=== PATIENT | female | born 1985 | race African-American/Black ===

== ENCOUNTER 2018-02-20 12:46 | Emergency (ER) | payer MEDICAID ==
--- NOTE | 2018-02-20 14:05 | ER Document Report ---
ED Medical Screen (RME) - General Chief Complaint: Probable Seizure Stated Complaint: POSSIBLE SEIZURE Time Seen by Provider: 02/20/18 13:54 Mode of Arrival: Ambulatory Information source: Patient Notes: This is a 32-year-old female with a history of seizures (Keppra 1000 mg twice daily), stray of migraines (Fioricet) who presents to the emergency room with a migraine for 3 days. Patient states she gets seizures when her migraines CAT scan. Her doctors are from [place]. She is recently relocated. She has not established yet with a new neurologist. Patient is requesting Dilaudid for her migraine. She states that the migraine headache is typical for her and denies any fever, neck stiffness or photophobia. TRAVEL OUTSIDE OF THE [place] IN LAST 30 DAYS: No - Related Data Allergies/Adverse Reactions: hydrocodone Allergy (Verified 02/20/18 12:50) topiramate [From Topamax] Allergy (Verified 02/20/18 12:50) Physical Exam - Vital signs Vitals: Temp Pulse Resp BP Pulse Ox 99.0 F 95 16 127/78 H 97 02/20/18 12:53 02/20/18 12:53 02/20/18 12:53 02/20/18 12:53 02/20/18 12:53 Course - Vital Signs Vital signs: Temp Pulse Resp BP Pulse Ox 99.0 F 95 16 127/78 H 97 02/20/18 12:53 02/20/18 12:53 02/20/18 12:53 02/20/18 12:53 02/20/18 12:53
[2018-02-20 14:54] LABS: APPEARANCE,URINE CLOUDY; BILIRUBIN,URINE NEGATIVE (NEGATIVE); COLOR,URINE YELLOW; GLUCOSE, URINE NEGATIVE (NEGATIVE); KETONES,URINE NEGATIVE (NEGATIVE); LEUKOCYTE ESTERASE,URINE NEGATIVE (NEGATIVE); NITRITE,URINE NEGATIVE (NEGATIVE); PROTEIN,URINE 30 mg/dL (NEGATIVE)
[2018-02-20 16:14] LABS: ABSOLUTE EOSINOPHILS # (AUTO) 0.1 10^3/uL (0.0-0.6); ABSOLUTE LYMPHOCYTES (AUTO) 2.4 10^3/uL (0.5-4.7); ABSOLUTE MONOCYTES (AUTO) 0.3 10^3/uL (0.1-1.4); ABSOLUTE NEUT (AUTO) 2.1 10^3/uL (1.7-8.2); BASOPHILS % (AUTO) 0.8 % (0-2); EOSINOPHILS % (AUTO) 1.7 % (0-6); HEMATOCRIT 43.6 % (36.0-47.0); LYMPHOCYTES % (AUTO) 48.9 % (13-45); MEAN CORPUSCULAR HEMOGLOBIN 30.3 pg (27.0-33.4); MEAN CORPUSCULAR HGB CONC 34.3 g/dL (32.0-36.0); MEAN CORPUSCULAR VOLUME 88 fl (80-97); PLATELET COUNT 246 10^3/uL (150-450); RED BLOOD COUNT 4.94 10^6/uL (3.72-5.28); RED CELL DISTRIBUTION WIDTH 14.7 % (11.5-14.0); SEGMENTED NEUTROPHILS % (AUTO) 42.6 % (42-78); TOTAL CELLS COUNTED % (AUTO) 100 %; WHITE BLOOD COUNT 4.9 10^3/uL (4.0-10.5)
[2018-02-20 17:09] LABS: ALANINE AMINOTRANSFERASE 24 U/L (9-52); ALBUMIN 4.2 g/dL (3.5-5.0); ALKALINE PHOSPHATASE 83 U/L (38-126); ANION GAP 10 (5-19); ASPARTATE AMINO TRANSFERASE 22 U/L (14-36); BILIRUBIN,DIRECT 0.3 mg/dL (0.0-0.4); BILIRUBIN,TOTAL 0.3 mg/dL (0.2-1.3); BLOOD UREA NITROGEN 10 mg/dL (7-20); CALCIUM 9.4 mg/dL (8.4-10.2); CARBON DIOXIDE 26 mmol/L (22-30); CHLORIDE 104 mmol/L (98-107); GLUCOSE 78 mg/dL (75-110); POTASSIUM 4.4 mmol/L (3.6-5.0); SODIUM 139.5 mmol/L (137-145); TOTAL PROTEIN 7.6 g/dL (6.3-8.2)
[2018-02-20] MEDS ORDERED: HYDROMORPHONE HCL INJ/PF 2 MG/ML AMPULE IM ONE (18:53)
[2018-02-20] MEDS ORDERED: LORAZEPAM INJ 2 MG/1 ML VIAL IV ONE (20:01)
[2018-02-20] MEDS ORDERED: HYDROMORPHONE HCL INJ/PF 2 MG/ML AMPULE IV ONE (20:02)
--- NOTE | 2018-02-20 20:04 | ER Document Report ---
ED General - General Chief Complaint: Probable Seizure Stated Complaint: POSSIBLE SEIZURE Time Seen by Provider: 02/20/18 13:54 Mode of Arrival: Ambulatory Notes: 32-year-old female with known seizure disorder, migraine headaches presents with complaint of headache that started at noon today. Headache is described as throbbing, located behind her eyes and similar to previous headaches. Patient also reports that she had a seizure prior to arrival. She states that she has been compliant with her medication which is Keppra. She recently moved to [facility] and does not currently have a PCP or neurologist. She denies any head injury, recent illnesses, fever, chills, nausea, vomiting. She does admit to some photophobia. Patient is currently staying with friends, she has not found a new home here yet. TRAVEL OUTSIDE OF THE [place] IN LAST 30 DAYS: No - HPI Onset: Just prior to arrival Onset/Duration: Gradual, Constant Quality of pain: Throbbing Severity: Moderate Pain Level: 2 Associated symptoms: Headache. denies: Chest pain, Nonproductive cough, Productive cough, Fever, Nausea, Vomiting, Shortness of breath Exacerbated by: Denies Relieved by: Denies Similar symptoms previously: Yes Recently seen / treated by doctor: No - Related Data Allergies/Adverse Reactions: hydrocodone Allergy (Verified 02/20/18 12:50) topiramate [From Topamax] Allergy (Verified 02/20/18 12:50) Past Medical History - General Information source: Patient - Social History Smoking Status: Current Every Day Smoker Chew tobacco use (# tins/day): No Smoking Education Provided: Yes - Patient counselled regarding cessation for 4 minutes Frequency of alcohol use: Rare Drug Abuse: None Lives with: Friend Family History: Reviewed & Not Pertinent Patient has suicidal ideation: No Patient has homicidal ideation: No Neurological Medical History: Reports: Hx Migraine, Hx Seizures Renal/ Medical History: Denies: Hx Peritoneal Dialysis Past Surgical History: Reports: Hx Hysterectomy, Hx Tonsillectomy Review of Systems - Review of Systems Constitutional: denies: Fever, Weakness EENT: denies: Blurred vision, Nose congestion Cardiovascular: denies: Chest pain, Palpitations Respiratory: denies: Short of breath Gastrointestinal: denies: Abdominal pain, Vomiting Genitourinary: denies: Dysuria, Flank pain, Hematuria Female Genitourinary: No symptoms reported Musculoskeletal: denies: Back pain Skin: No symptoms reported Hematologic/Lymphatic: denies: Easy bleeding, Easy bruising Neurological/Psychological: Seizure, Headaches -: Yes All other systems reviewed and negative Physical Exam - Vital signs Vitals: Temp Pulse Resp BP Pulse Ox 99.0 F 95 16 127/78 H 97 02/20/18 12:53 02/20/18 12:53 02/20/18 12:53 02/20/18 12:53 02/20/18 12:53 - Notes Notes: PHYSICAL EXAMINATION: GENERAL: Well-appearing, well-nourished and in no acute distress. HEAD: Atraumatic, normocephalic. EYES: Pupils equal round and reactive to light, extraocular movements intact, conjunctiva are normal. Normal funduscopic exam ENT: Nares patent, oropharynx clear without exudates. Moist mucous membranes. NECK: Normal range of motion, supple without lymphadenopathy LUNGS: Breath sounds clear to auscultation bilaterally and equal. No wheezes rales or rhonchi. HEART: Regular rate and rhythm without murmurs ABDOMEN: Soft, nontender, nondistended abdomen. No guarding, no rebound. No masses appreciated. Female : deferred Musculoskeletal: Normal range of motion, no pitting or edema. No cyanosis. NEUROLOGICAL: Cranial nerves grossly intact. Normal speech, normal gait. Normal sensory, motor exams. GCS 15 PSYCH: Normal mood, normal affect. SKIN: Warm, Dry, normal turgor, no rashes or lesions noted. Course - Re-evaluation Re-evalutation: Laboratory 02/20/18 02/20/18 02/20/18 14:26 16:05 16:05 WBC 4.9 RBC 4.94 Hgb 15.0 Hct 43.6 MCV 88 MCH 30.3 MCHC 34.3 RDW 14.7 H Plt Count 246 Seg Neutrophils % 42.6 Lymphocytes % 48.9 H Monocytes % 6.0 Eosinophils % 1.7 Basophils % 0.8 Absolute Neutrophils 2.1 Absolute Lymphocytes 2.4 Absolute Monocytes 0.3 Absolute Eosinophils 0.1 Absolute Basophils 0.0 Sodium 139.5 Potassium 4.4 Chloride 104 Carbon Dioxide 26 Anion Gap 10 BUN 10 Creatinine 0.80 Est GFR ( Amer) > 60 Est GFR (Non-Af Amer) > 60 Glucose 78 Calcium 9.4 Total Bilirubin 0.3 Direct Bilirubin 0.3 Neonat Total Bilirubin Not Reportable Neonat Direct Bilirubin Not Reportable Neonat Indirect Bili Not Reportable AST 22 ALT 24 Alkaline Phosphatase 83 Total Protein 7.6 Albumin 4.2 Urine Color YELLOW Urine Appearance CLOUDY Urine pH 5.0 Ur Specific Lucas 1.030 Urine Protein 30 H Urine Glucose (UA) NEGATIVE Urine Ketones NEGATIVE Urine Blood NEGATIVE Urine Nitrite NEGATIVE Urine Bilirubin NEGATIVE Urine Urobilinogen 2.0 H Ur Leukocyte Esterase NEGATIVE Urine WBC (Auto) 5 Urine RBC (Auto) 2 Squamous Epi Cells Auto 13 Urine Mucus (Auto) MANY Urine Ascorbic Acid [address] 02/20/18 20:02 IMPRESSION: No acute intracranial findings. EVIDENCE OF ACUTE STROKE: NO. 32-year-old female with known seizure disorder, migraine headaches presents with complaint of headache that started at noon today. Headache is described as throbbing, located behind her eyes and similar to previous headaches. Patient also reports that she had a seizure prior to arrival. She states that she has been compliant with her medication which is Keppra. Patient was seen by myself upon arrival. Vital signs were reviewed. Patient is afebrile, normotensive and not hypoxic. Patient does not appear toxic or dehydrated. They are in no acute distress. Previous medical records and nursing notes reviewed. Patient has a normal neurologic exam. She did receive IV fluids, Dilaudid, Reglan. After initial medication administration she was reevaluated and reported no relief of pain. CT of the head was then obtained and showed no acute intracranial findings. Patient was premedicated and found resting comfortably. She does report improvement of headache, but is now complaining of nausea. Patient did receive Reglan and Benadryl for this. Patient provided the opportunity to ask questions, and express concerns. Discharge instructions discussed. Patient is agreeable with discharge home. Return indications explained and discussed with the patient who displays understanding. Patient encouraged to return to the emergency department immediately with any concerns. 02/20/18 20:01 On reevaluation patient states her headache is not improved 02/20/18 21:42 Patient reevaluated and she is in comfortably. When awoke she states that her headache is "easing up". 02/20/18 21:45 02/20/18 21:50 02/20/18 21:50 - Vital Signs Vital signs: Temp Pulse Resp BP Pulse Ox 99.0 F 95 18 127/78 H 97 02/20/18 12:53 02/20/18 12:53 02/20/18 13:54 02/20/18 12:53 02/20/18 12:53 - Laboratory Result Diagrams: 02/20/18 16:05 02/20/18 16:05 Laboratory results interpreted by me: 02/20/18 02/20/18 14:26 16:05 RDW 14.7 H Lymphocytes % 48.9 H Urine Protein 30 H Urine Urobilinogen 2.0 H Urine Ascorbic Acid 40 H - Diagnostic Test Radiology reviewed: Image reviewed, Reports reviewed Discharge - Discharge Clinical Impression: Seizure Headache Qualifiers: Headache type: unspecified Headache chronicity pattern: chronic headache Intractability: not intractable Qualified Code(s): R51 - Headache Condition: Good Disposition: HOME, SELF-CARE Instructions: Headache ([facility]), Seizure, Known Epileptic ([facility]) Additional Instructions: Follow up with your physician tomorrow for further care or return to the ED IMMEDIATELY if symptoms worsen or new concerns occur. If you cannot afford to follow up with your primary care physician a list of low cost clinics have been provided at the end of your discharge papers as well.
[2018-02-20] MEDS ORDERED: METOCLOPRAMIDE HCL INJ/PF 10 MG/2 ML SDV IV ONE (21:43)
[2018-02-20] MEDS ORDERED: DIPHENHYDRAMINE HCL 50 MG/ML VIAL IV ONE (21:43)
--- NOTE | 2018-02-20 21:44 | RADIOLOGY REPORT (SQ) ---
EXAM DESCRIPTION: CT HEAD WITHOUT COMPLETED DATE/TIME: 02/20/2018 9:25 pm REASON FOR STUDY: headache COMPARISON: None. TECHNIQUE: Axial images acquired through the brain without intravenous contrast. Images reviewed wi th bone, brain and subdural windows. Images stored on PACS. All CT scanners at this facility use dose modulation, iterative reconstruction, and/or weight based d osing when appropriate to reduce radiation dose to as low as reasonably achievable (ALARA). [facility]: Dose Right [facility]: CareDose [facility]: Dose Right [facility]: Teradose 4D [facility]: Smart SensorTech RADIATION DOSE: CT Rad equipment meets quality standard of care and radiation dose reduction techniq ues were employed. CTDIvol: 53.2 mGy. DLP: 1097 mGy-cm. mGy. LIMITATIONS: None. FINDINGS: VENTRICLES: Normal size and contour. CEREBRUM: No masses. No hemorrhage. No midline shift. No evidence for acute infarction. Normal gra y/white matter differentiation. No areas of low density in the white matter. CEREBELLUM: No masses. No hemorrhage. No alteration of density. No evidence for acute infarction. EXTRAAXIAL SPACES: No fluid collections. No masses. ORBITS AND GLOBE: No intra- or extraconal masses. Normal contour of globe without masses. CALVARIUM: No fracture. PARANASAL SINUSES: No fluid or mucosal thickening. SOFT TISSUES: No mass or hematoma. OTHER: No other significant finding. IMPRESSION: No acute intracranial findings. EVIDENCE OF ACUTE STROKE: NO. COMMENT: Quality ID # [id number]: Final reports with documentation of one or more dose reduction techniques (e.g., Automated exposure control, adjustment of the mA and/or kV according to patient size, use of iterative reconstruction technique) TECHNICAL DOCUMENTATION: JOB ID: [id number] [place]-72 2010 [employer]- All Rights Reserved Reading location - IP/workstation name: [employer]
[2018-02-20 23:31] VITALS: BP 122/94
== END 2018-02-20 23:30 | disposition home or self-care (01) ==
LOC: ER 12:46
DX: G40.909 Epilepsy, unspecified, not intractable, without status epilepticus (principal); R51 Headache; F17.200 Nicotine dependence, unspecified, uncomplicated; Z88.6 Allergy status to analgesic agent; Z90.710 Acquired absence of both cervix and uterus
CPT/HCPCS: 36591; 99406; 99284; 96372; 96374; 96375; 36415; 85025; 80053; 81001; 70450; J1200; J2765; J1170; J2060

== ENCOUNTER 2018-03-21 19:33 | Emergency (ER) | payer MEDICAID ==
[2018-03-21] MEDS ORDERED: BUTALB/ACETAMINOPHEN/CAFFEINE 1 TAB EACH PO ONE (20:00)
--- NOTE | 2018-03-21 20:07 | ER Document Report ---
ED General - General Chief Complaint: Head Injury Stated Complaint: HEAD INJURY Time Seen by Provider: 03/21/18 19:51 Mode of Arrival: Ambulatory Information source: Patient Notes: Patient is a 32-year-old female with a known seizure disorder who presents with complaints of seizure that occurred 30 minutes prior to arrival. Patient was last seen here on February 20 for the same issue. Patient also reports that she is having a migraine headache, she states this is one of her usual migraines and states that she is out of her Fioricet. Patient reports that she was sitting in her kitchen counter when she had a seizure and she states she fell onto the floor onto a carpeted surface. Patient denies any incontinence. Patient denies any nausea or vomiting. Patient reports that she has no primary care provider nor does she have a neurologist. Patient does report that she takes Keppra 500 mg p.o. twice daily and states that she is compliant with her medications. TRAVEL OUTSIDE OF THE [place] IN LAST 30 DAYS: No - Related Data Allergies/Adverse Reactions: hydrocodone Allergy (Verified 03/21/18 19:34) topiramate [From Topamax] Allergy (Verified 03/21/18 19:34) Past Medical History - General Information source: Patient - Social History Smoking Status: Never Smoker Frequency of alcohol use: None Drug Abuse: None Family History: Reviewed & Not Pertinent Neurological Medical History: Reports: Hx Migraine, Hx Seizures Renal/ Medical History: Denies: Hx Peritoneal Dialysis Past Surgical History: Reports: Hx Hysterectomy, Hx Tonsillectomy Review of Systems - Review of Systems Constitutional: No symptoms reported EENT: No symptoms reported Cardiovascular: No symptoms reported Respiratory: No symptoms reported Gastrointestinal: No symptoms reported Genitourinary: No symptoms reported Female Genitourinary: No symptoms reported Musculoskeletal: No symptoms reported Skin: No symptoms reported Hematologic/Lymphatic: No symptoms reported Neurological/Psychological: See HPI Physical Exam - Vital signs Vitals: Temp Pulse Resp BP Pulse Ox 99.0 F 101 H 19 154/108 H 100 03/21/18 19:39 03/21/18 19:39 03/21/18 19:39 03/21/18 19:39 03/21/18 19:39 - Notes Notes: PHYSICAL EXAMINATION: GENERAL: Well-appearing, well-nourished and in no acute distress. HEAD: Atraumatic, normocephalic. EYES: Pupils equal round and reactive to light, extraocular movements intact, conjunctiva are normal. ENT: Nares patent, oropharynx clear without exudates. Moist mucous membranes. NECK: Normal range of motion, supple without lymphadenopathy LUNGS: Breath sounds clear to auscultation bilaterally and equal. No wheezes rales or rhonchi. HEART: Regular rate and rhythm without murmurs ABDOMEN: Soft, nontender, nondistended abdomen. No guarding, no rebound. No masses appreciated. Female : deferred Musculoskeletal: Normal range of motion, no pitting or edema. No cyanosis. NEUROLOGICAL: Cranial nerves grossly intact. Normal speech, normal gait. Normal sensory, motor exams PSYCH: Normal mood, normal affect. SKIN: Warm, Dry, normal turgor, no rashes or lesions noted. Course - Re-evaluation Re-evalutation: 32 year old female patient presents after a seizure, patient is a known epileptic. Patient reports that she has multiple seizures monthly over the last few years despite being complaint with her medications. Patient alert and oriented x4 on my examination. Normal neurological examination. EKG is unchanged from previous, NSR, no ectopy, normal axis, no ischemic changes. CBC and comprehensive metabolic panel are within normal limits, magnesium normal. Patient had a normal head CT at this facility on 02/20/18, I feel there is no need to repeat this today. Patient was monitored for several hours and had no seizure activity. Patient headache resolved with one dose of fioricet. Patient will follow up with neurology. - Vital Signs Vital signs: Temp Pulse Resp BP Pulse Ox 98.1 F 93 16 136/87 H 97 03/21/18 22:36 03/21/18 22:36 03/21/18 22:36 03/21/18 22:36 03/21/18 22:36 - Laboratory Result Diagrams: 03/21/18 21:35 03/21/18 20:32 Laboratory results interpreted by me: 03/21/18 21:35 RDW 14.9 H Discharge - Discharge Clinical Impression: Seizure Condition: Stable Disposition: HOME, SELF-CARE Additional Instructions: Seizure, Known Epileptic You have had a seizure. Seizures may "break through" in an epileptic due to stress of infection or injury, a change in blood chemistry, or drug and alcohol use. Another common cause is failure to take medication as prescribed. Your doctor has evaluated your situation for the likely cause of this seizure. It is important that you follow his advice concerning any medication changes and follow-up care. Further testing of anti-seizure medication levels in your blood may be necessary. If you have a tour driver's license, it's important that you DO NOT DRIVE until given permission by your physician. This seizure must be reported to the tour driver 's license bureau. Call the doctor or return if seizures recur, or if new or unusual symptoms arise -- such as severe headache, confusion, excessive sleepiness, local weakness or numbness, neck stiffness, or fever. Please continue taking her Keppra as prescribed. I am giving you contact info for local primary care providers as well as a local neurologist. Please call them tomorrow to make a follow-up appointment to establish care. Prescriptions: Butalb/Acetaminophen/Caffeine [Fioricet (50-325-40 mg) Tablet] 1 tab PO Q4HP PRN #30 tab PRN Reason: Referrals: [facility] [Provider Group] - Follow up as needed [facility] [Provider Group] - Follow up as needed KRYSTAL MORENO MD [EMERITUS] - Follow up as needed GOLD CROW MD [NO LOCAL MD] - Follow up as needed
[2018-03-21 20:58] LABS: ALANINE AMINOTRANSFERASE 20 U/L (9-52); ALBUMIN 3.7 g/dL (3.5-5.0); ALKALINE PHOSPHATASE 65 U/L (38-126); ANION GAP 11 (5-19); ASPARTATE AMINO TRANSFERASE 14 U/L (14-36); BILIRUBIN,DIRECT 0.3 mg/dL (0.0-0.4); BILIRUBIN,TOTAL 0.3 mg/dL (0.2-1.3); BLOOD UREA NITROGEN 13 mg/dL (7-20); CARBON DIOXIDE 24 mmol/L (22-30); CHLORIDE 107 mmol/L (98-107); GLUCOSE 88 mg/dL (75-110); POTASSIUM 3.8 mmol/L (3.6-5.0); TOTAL PROTEIN 6.8 g/dL (6.3-8.2)
[2018-03-21 21:53] LABS: ABSOLUTE BASOPHILS # (AUTO) 0.1 10^3/uL (0.0-0.2); ABSOLUTE EOSINOPHILS # (AUTO) 0.1 10^3/uL (0.0-0.6); ABSOLUTE LYMPHOCYTES (AUTO) 2.5 10^3/uL (0.5-4.7); ABSOLUTE MONOCYTES (AUTO) 0.6 10^3/uL (0.1-1.4); ABSOLUTE NEUT (AUTO) 3.1 10^3/uL (1.7-8.2); BASOPHILS % (AUTO) 1.3 % (0-2); EOSINOPHILS % (AUTO) 1.8 % (0-6); HEMATOCRIT 37.5 % (36.0-47.0); HEMOGLOBIN 12.9 g/dL (12.0-15.5); LYMPHOCYTES % (AUTO) 39.8 % (13-45); MEAN CORPUSCULAR HGB CONC 34.4 g/dL (32.0-36.0); MEAN CORPUSCULAR VOLUME 87 fl (80-97); MONOCYTES % (AUTO) 8.8 % (3-13); PLATELET COUNT 261 10^3/uL (150-450); RED CELL DISTRIBUTION WIDTH 14.9 % (11.5-14.0); SEGMENTED NEUTROPHILS % (AUTO) 48.3 % (42-78); TOTAL CELLS COUNTED % (AUTO) 100 %; WHITE BLOOD COUNT 6.4 10^3/uL (4.0-10.5)
[2018-03-21 22:40] VITALS: BP 136/87
--- NOTE | 2018-03-22 07:16 | EKG REPORT ---
SEVERITY:- NORMAL ECG - SINUS RHYTHM : Confirmed by: Ras Moser MD 22-Mar-2018 07:16:02
== END 2018-03-21 22:40 | disposition home or self-care (01) ==
LOC: ER 19:33
DX: G40.909 Epilepsy, unspecified, not intractable, without status epilepticus (principal); Z79.899 Other long term (current) drug therapy; W19.XXXA Unspecified fall, initial encounter
CPT/HCPCS: 93005; 99284; 36415; 83735; 85025; 80053; 93010; J3490

== ENCOUNTER 2018-05-28 07:35 | Emergency (ER) | payer MEDICAID ==
[2018-05-28] MEDS ORDERED: DIPHENHYDRAMINE HCL 50 MG/ML VIAL IV ONE (08:01)
[2018-05-28] MEDS ORDERED: KETOROLAC TROMETHAMINE INJ/PF 30 MG/1 ML SDV IV ONE (08:01)
[2018-05-28] MEDS ORDERED: METOCLOPRAMIDE HCL INJ/PF 10 MG/2 ML SDV IV ONE (08:01)
--- NOTE | 2018-05-28 08:02 | ER Document Report ---
ED General - General Chief Complaint: Probable Seizure Stated Complaint: POSSIBLE SEIZURE Time Seen by Provider: 05/28/18 07:51 Notes: This is a 33-year-old female history of migraines. States that she had a high headache earlier this morning. Cannot get comfortable. Having vomiting. Has multiple prior headaches which were very similar to this. Not the worst headache of her life. No fever. No neck stiffness. Not sure whether or not she had a seizure or not. Patient thinks she possibly could have. TRAVEL OUTSIDE OF THE [place] IN LAST 30 DAYS: No - HPI Onset: This morning Onset/Duration: Gradual Quality of pain: No pain Severity: Moderate Pain Level: 4 Associated symptoms: Headache, Nausea, Vomiting - Related Data Allergies/Adverse Reactions: hydrocodone Allergy (Verified 05/28/18 07:42) topiramate [From Topamax] Allergy (Verified 05/28/18 07:42) Past Medical History - General Information source: Patient - Social History Smoking Status: Smoker,Current Status Unk Frequency of alcohol use: None Drug Abuse: None Lives with: Family Family History: Reviewed & Not Pertinent Neurological Medical History: Reports: Hx Migraine, Hx Seizures Renal/ Medical History: Denies: Hx Peritoneal Dialysis Past Surgical History: Reports: Hx Hysterectomy, Hx Tonsillectomy Review of Systems - Review of Systems Notes: Constitutional: denies: Chills, Diaphoresis, Fever, Malaise, Weakness EENT: denies: Eye discharge, Blurred vision, Tearing, Double vision, Nose congestion, Nose discharge, Throat swelling, Mouth pain Cardiovascular: denies: Palpitations, Heart racing, Orthopnea, Dyspnea, Chest pain Respiratory: denies: Cough, Hurts to breathe, Wheezing, Shortness of breath Gastrointestinal: denies: Abdominal pain, Diarrhea,. Does complain of nausea and vomiting Genitourinary: denies: Burning, Dysuria, Discharge, Frequency, Flank pain, Hematuria Musculoskeletal: denies: Joint pain, Joint swelling, Muscle pain, Muscle stiffness, back pain Hematologic/Lymphatic: denies: Anemia, Easy bleeding, Easy bruising, Blood clots Neurological/Psychological: denies: Confusion, Dementia, Depression, Loss of consciousness. Does complain of a headache and possible seizure Skin: No lesions, no masses, no skin breakdown, no abscesses Physical Exam - Vital signs Vitals: Resp 16 05/28/18 08:02 Interpretation: Normal - General General appearance: Appears well, Alert - HEENT Head: Normocephalic, Atraumatic Eyes: Normal Pupils: PERRL - Respiratory Respiratory status: No respiratory distress Chest status: Nontender Breath sounds: Normal Chest palpation: Normal - Cardiovascular Rhythm: Regular Heart sounds: Normal auscultation Murmur: No - Abdominal Inspection: Normal Distension: No distension Bowel sounds: Normal Tenderness: Nontender Organomegaly: No organomegaly - Back Back: Normal, Nontender - Extremities General upper extremity: Normal inspection, Nontender, Normal color, Normal ROM , Normal temperature General lower extremity: Normal inspection, Nontender, Normal color, Normal ROM , Normal temperature, Normal weight bearing. No: Da's sign - Neurological Neuro grossly intact: Yes Cognition: Normal Orientation: AAOx4 [place] Coma Scale Eye Opening: Spontaneous [place] Coma Scale Verbal: Oriented [place] Coma Scale Motor: Obeys Commands Donte Coma Scale Total: 15 Speech: Normal Motor strength normal: LUE, RUE, LLE, RLE Sensory: Normal - Psychological Associated symptoms: Normal affect, Normal mood - Skin Skin Temperature: Warm Skin Moisture: Dry Skin Color: Normal Course - Re-evaluation Re-evalutation: 05/28/18 08:15 Start patient on Reglan, Benadryl, Toradol and reassess. 05/28/18 09:54 Blood pressures come down nicely. Patient resting comfortably. Sleeping at this time. Repeat neurological exam unremarkable. - Vital Signs Vital signs: Temp Pulse Resp BP Pulse Ox 22 H 157/107 H 05/28/18 10:01 05/28/18 10:00 Discharge - Discharge Clinical Impression: Migraine headache Qualifiers: Migraine type: unspecified Status migrainosus presence: without status migrainosus Intractability: not intractable Qualified Code(s): G43.909 - Migraine, unspecified, not intractable, without status migrainosus Condition: Good Disposition: HOME, SELF-CARE Instructions: Migraine Headache ([facility]) Prescriptions: Ondansetron [Zofran Odt 4 mg Tablet] 1 - 2 tab PO Q4H PRN #15 tab.rapdis PRN Reason: For Nausea/Vomiting Forms: Return to Work
[2018-05-28] MEDS ORDERED: ONDANSETRON HCL INJ/PF 4 MG/2 ML SDV IV ONE (10:02)
[2018-05-28 10:16] VITALS: BP 157/107
== END 2018-05-28 10:28 | disposition home or self-care (01) ==
LOC: ER 07:35
DX: G43.909 Migraine, unspecified, not intractable, without status migrainosus (principal); R11.2 Nausea with vomiting, unspecified; Z88.5 Allergy status to narcotic agent; Z88.6 Allergy status to analgesic agent
CPT/HCPCS: 99283; 96374; 96375; J1200; J1885; J2765; J2405

== ENCOUNTER 2018-09-10 00:05 | Emergency (ER) | payer MEDICAID ==
[2018-09-10 00:11] VITALS: BP 152/99
[2018-09-10] MEDS ORDERED: CYCLOBENZAPRINE HCL 10 MG TABLET PO ONE (00:58)
[2018-09-10] MEDS ORDERED: BUTALB/ACETAMINOPHEN/CAFFEINE 1 TAB EACH PO ONE (00:58)
--- NOTE | 2018-09-10 00:59 | ER Document Report ---
ED General - General Chief Complaint: Pain All Over Stated Complaint: BODYACHE Time Seen by Provider: 09/10/18 00:49 Notes: Patient is a 33-year-old female with history of migraines that presents to the emergency department for chief complaint of migraine headache. Patient states she is been having this migraine for about 1 week, has been off and on in intensity, but today it seemed to be more intense so she decided come to the emergency department. Is not the worst headache of her life, similar to her previous migraines, which she is having associated body aches, nausea but without vomiting. She usually takes B alditol for her medications, but she has been out of this medication she recently moved and did not have it refilled since moving. She describes her headache is holocephalic, with mild photophobia, without aura, describes it and rates it as a 7 out of 10 at this time, as an aching type headache. Denies any numbness, tingling or weakness in the extremities. She also denies any recent fevers, chills, night sweats, co ugh, chest pain, shortness of breath or difficulty breathing. Past Medical History: Epilepsy, migraine headaches Past Surgical History: Hysterectomy, tubal ligation, tonsillectomy Social History: Admits to smoking cigarettes daily, denies alcohol or drug use. Family History: Reviewed and noncontributory for presenting illness Allergies: Reviewed, see documented allergy list. REVIEW OF SYSTEMS: Other than noted above, the 12 point review of systems was reviewed with the patient and were negative, all pertinent findings are included in the HPI. PHYSICAL EXAMINATION: Vital signs reviewed, nursing noted reviewed. GENERAL: Well-appearing, well-nourished and in no acute distress. HEAD: Atraumatic, normocephalic. EYES: Eyes appear normal, extraocular movements intact, sclera anicteric, c onjunctiva are normal. ENT: nares patent, oropharynx clear without exudates. Moist mucous membranes. NECK: Normal range of motion, supple without lymphadenopathy LUNGS: Breath sounds clear to auscultation bilaterally and equal. No wheezes rales or rhonchi. HEART: Regular rate and rhythm without murmurs ABDOMEN: Soft, nontender, normoactive bowel sounds. No rebound, guarding, or rigidity. No masses appreciated. EXTREMITIES: Nontender, good range of motion, no pitting or edema. NEUROLOGICAL: No focal neurological deficits. Moves all extremities spontaneously Motor and sensory grossly intact on exam. PSYCH: Normal mood, normal affect. SKIN: Warm, Dry, normal turgor, no rashes or lesions noted on exposed skin TRAVEL OUTSIDE OF THE [place] IN LAST 30 DAYS: No - Related Data Allergies/Adverse Reactions: hydrocodone Allergy (Verified 05/28/18 07:42) topiramate [From Topamax] Allergy (Verified 05/28/18 07:42) Past Medical History - Social History Smoking Status: Current Every Day Smoker Family History: Reviewed & Not Pertinent Neurological Medical History: Reports: Hx Migraine, Hx Seizures Renal/ Medical History: Denies: Hx Peritoneal Dialysis Past Surgical History: Reports: Hx Hysterectomy, Hx Tonsillectomy Physical Exam - Vital signs Vitals: Temp Pulse Resp BP Pulse Ox 97.8 F 87 18 152/99 H 98 09/10/18 00:09 09/10/18 00:09 09/10/18 00:09 09/10/18 00:09 09/10/18 00:09 Course - Re-evaluation Re-evalutation: Patient seen and examined vital signs reviewed. Patient was treated with Fioricet, 2 tablets, and Flexeril, as the patient states that that typically helps her migraines The patient was re-evaluated and was still complaining of headache, at this point decided to access her Port-A-Cath, and give her IV fluids, Toradol, and Reglan, and reevaluate her afterwards, as she stated in the past she usually needs IV medications, to help her headaches, when they have been lasting this long. Patient was reevaluated, she appeared much improved, she stated her headache was completely resolved, and felt comfortable with being discharged home, discussed with her return precautions. Evaluation was most consistent with headache Results were discussed with the patient at this point, after careful consideration I feel that that patient can be discharged from the emergency department, the patient was educated treatments and reasons to return to the emergency department based on their presumed diagnosis as noted above, they were advised to followup with a primary care physician in 2-3 days. Patient was agreeable to plan of care. *Note is created using voice recognition software and may contain spelling, syntax or grammatical errors. - Vital Signs Vital signs: Temp Pulse Resp BP Pulse Ox 97.8 F 87 18 152/99 H 98 09/10/18 00:09 09/10/18 00:09 09/10/18 00:09 09/10/18 00:09 09/10/18 00:09 Discharge - Discharge Clinical Impression: Headache Qualifiers: Headache type: unspecified Headache chronicity pattern: acute headache Intractability: not intractable Qualified Code(s): R51 - Headache Condition: Stable Disposition: HOME, SELF-CARE Instructions: Headache ([facility]) Referrals: VITALIY CHANCE MD [ACTIVE STAFF] - Follow up in 3-5 days (or your primary care. )
[2018-09-10] MEDS ORDERED: KETOROLAC TROMETHAMINE INJ/PF 30 MG/1 ML SDV IV ONE (01:29)
[2018-09-10] MEDS ORDERED: NORMAL SALINE 1000 ML 1,000 ML IV ONE (01:29)
[2018-09-10] MEDS ORDERED: METOCLOPRAMIDE HCL INJ/PF 10 MG/2 ML SDV IV ONE (01:30)
== END 2018-09-10 03:07 | disposition home or self-care (01) ==
LOC: ER 00:05
DX: R51 Headache (principal); M79.10 Myalgia, unspecified site; R11.0 Nausea; Z79.899 Other long term (current) drug therapy; F17.210 Nicotine dependence, cigarettes, uncomplicated
CPT/HCPCS: 36591; 99283; 96361; 96374; 96375; J3490 ×2; J1885; J2765; J7030

== ENCOUNTER 2018-09-12 03:44 | Emergency (ER) | payer MEDICAID ==
[2018-09-12] MEDS ORDERED: PROMETHAZINE HCL 25 MG TABLET PO ONE (04:02)
[2018-09-12] MEDS ORDERED: OXYCODONE-ACETAMINOPHEN 5-325 MG TABLET PO ONE (04:02)
--- NOTE | 2018-09-12 04:04 | ER Document Report ---
ED GI/ - General Chief Complaint: Abdominal Pain Stated Complaint: ABDOMINAL PAIN Time Seen by Provider: 09/12/18 03:54 Notes: Patient is a 33-year-old female that comes to the emergency department for chief complaint of 1 week of right upper quadrant abdominal pain. She states pain is much worse after eating and she is eating less as a result. She denies vomiting, fever, she reports normal bowel movements, she denies flank pain, dysuria, vaginal discharge or bleeding. Past medical history of hysterectomy, epilepsy, migraines, tobacco abuse. She denies alcohol or recreational drugs. TRAVEL OUTSIDE OF THE [place] IN LAST 30 DAYS: No - Related Data Allergies/Adverse Reactions: hydrocodone Allergy (Verified 09/12/18 03:46) topiramate [From Topamax] Allergy (Verified 09/12/18 03:46) Past Medical History - General Information source: Patient - Social History Smoking Status: Never Smoker Lives with: Family Family History: Reviewed & Not Pertinent Neurological Medical History: Reports: Hx Migraine, Hx Seizures Renal/ Medical History: Denies: Hx Peritoneal Dialysis Past Surgical History: Reports: Hx Hysterectomy, Hx Tonsillectomy - Immunizations Immunizations up to date: Yes Hx Diphtheria, Pertussis, Tetanus Vaccination: Yes Review of Systems - Review of Systems Constitutional: No symptoms reported EENT: No symptoms reported Cardiovascular: No symptoms reported Respiratory: No symptoms reported Gastrointestinal: See HPI Genitourinary: No symptoms reported Female Genitourinary: No symptoms reported Musculoskeletal: No symptoms reported Skin: No symptoms reported Hematologic/Lymphatic: No symptoms reported Neurological/Psychological: No symptoms reported Physical Exam - Vital signs Vitals: Temp Pulse Resp BP Pulse Ox 97.9 F 89 18 141/90 H 99 09/12/18 03:47 09/12/18 03:47 09/12/18 03:47 09/12/18 03:47 09/12/18 03:47 - Notes Notes: GENERAL: Alert, interacts well. No acute distress. HEAD: Normocephalic, atraumatic. EYES: Pupils equal, round, and reactive to light. Extraocular movements intact. ENT: Oral mucosa moist, tongue midline. Oropharynx unremarkable. Airway patent. Nares patent, no nasal septal hematoma, TM's intact. NECK: Full range of motion. Supple. Trachea midline. LUNGS: Clear to auscultation bilaterally, no wheezes, rales, or rhonchi. No respiratory distress. HEART: Regular rate and rhythm. No murmur ABDOMEN: There is some tenderness in the right upper quadrant, remaining abdomen is completely benign.. Non-distended. Bowel sounds present in all 4 quadrants. GENITOURINARY: Deferred EXTREMITIES: Moves all 4 extremities spontaneously. No edema, normal radial and dorsalis pedis pulses bilaterally. No cyanosis. BACK: no cervical, thoracic, lumbar midline tenderness. No saddle anesthesia, normal distal neurovascular exam. NEUROLOGICAL: Alert and oriented x3. Normal speech. [cranial nerves II through XII grossly intact]. PSYCH: Normal affect, normal mood. SKIN: Warm, dry, normal turgor. No rashes or lesions noted. Course - Re-evaluation Re-evalutation: CBC unremarkable, chemistry unremarkable, urinalysis unremarkable. Lipase is normal. Patient is extremely well-appearing, talkative, laughing, playing on her phone, hard to distract from her phone. She does have mild right upper quadrant tenderness, the remaining abdomen is benign. Exam performed, shows cholelithiasis without cholecystitis or obstruction. No other concerning findings. Patient tolerated p.o. without any difficulty. I discussed the results of her workup in detail, discussed surgical follow-up, medications, and return precautions in detail. Patient requests in addition to this that she be given Flexeril which she takes frequently for tension headaches to prevent migraines. She was provided with this. Patient states understanding and agreement with plan. - Vital Signs Vital signs: Temp Pulse Resp BP Pulse Ox 98.3 F 86 16 147/95 H 100 09/12/18 05:47 09/12/18 05:47 09/12/18 05:47 09/12/18 05:47 09/12/18 05:47 - Laboratory Result Diagrams: 09/12/18 04:05 09/12/18 04:05 Laboratory results interpreted by me: 09/12/18 09/12/18 04:05 04:05 RDW 14.3 H Chloride 108 H Discharge - Discharge Clinical Impression: Right upper quadrant pain Headache Qualifiers: Headache type: unspecified Headache chronicity pattern: episodic headache Intractability: not intractable Qualified Code(s): R51 - Headache Cholelithiasis Qualifiers: Cholelithiasis location: gallbladder Cholecystitis presence: without cholecystitis Biliary obstruction: without biliary obstruction Qualified Code(s): K80.20 - Calculus of gallbladder without cholecystitis without obstr uction Condition: Stable Disposition: HOME, SELF-CARE Additional Instructions: Your workup shows that you have gallstones. This is most likely the cause of your symptoms. I recommend the Toradol for symptoms of gallbladder spasm/pain, avoid fatty foods, and follow-up closely with the surgical referral listed. You can take the cyclobenzaprine as prescribed for muscle relaxer/headaches. Return to the emergency department for any concerning or worsening symptoms including severe pain, fever, vomiting, or any other concerning or worsening symptoms. Prescriptions: Ketorolac Tromethamine [Toradol 10 mg Tablet] 10 mg PO Q8HP PRN #24 tablet PRN Reason: Cyclobenzaprine HCl [Flexeril 5 mg Tablet] 1 - 2 tab PO TID PRN #15 tablet PRN Reason: Forms: Return to Work Referrals: [facility] [Provider Group] - Follow up as needed
[2018-09-12 04:24] LABS: ABSOLUTE BASOPHILS # (AUTO) 0.1 10^3/uL (0.0-0.2); ABSOLUTE EOSINOPHILS # (AUTO) 0.3 10^3/uL (0.0-0.6); ABSOLUTE LYMPHOCYTES (AUTO) 1.9 10^3/uL (0.5-4.7); ABSOLUTE MONOCYTES (AUTO) 0.5 10^3/uL (0.1-1.4); EOSINOPHILS % (AUTO) 5.9 % (0-6); HEMOGLOBIN 13.7 g/dL (12.0-15.5); LYMPHOCYTES % (AUTO) 32.4 % (13-45); MEAN CORPUSCULAR HEMOGLOBIN 30.7 pg (27.0-33.4); MEAN CORPUSCULAR HGB CONC 34.3 g/dL (32.0-36.0); MEAN CORPUSCULAR VOLUME 90 fl (80-97); MONOCYTES % (AUTO) 8.6 % (3-13); PLATELET COUNT 248 10^3/uL (150-450); RED BLOOD COUNT 4.46 10^6/uL (3.72-5.28); RED CELL DISTRIBUTION WIDTH 14.3 % (11.5-14.0); SEGMENTED NEUTROPHILS % (AUTO) 51.1 % (42-78); TOTAL CELLS COUNTED % (AUTO) 100 %; WHITE BLOOD COUNT 5.8 10^3/uL (4.0-10.5)
[2018-09-12 04:34] LABS: APPEARANCE,URINE SLIGHTLY-CLOUDY; BILIRUBIN,URINE NEGATIVE (NEGATIVE); COLOR,URINE YELLOW; GLUCOSE, URINE NEGATIVE (NEGATIVE); KETONES,URINE NEGATIVE (NEGATIVE); LEUKOCYTE ESTERASE,URINE NEGATIVE (NEGATIVE); NITRITE,URINE NEGATIVE (NEGATIVE); PROTEIN,URINE NEGATIVE (NEGATIVE); URINE SPECIFIC GRAVITY 1.025; UROBILINOGEN,URINE NEGATIVE mg/dL (<2.0)
[2018-09-12 04:38] LABS: ALANINE AMINOTRANSFERASE 15 U/L (9-52); ALBUMIN 3.9 g/dL (3.5-5.0); ALKALINE PHOSPHATASE 64 U/L (38-126); ANION GAP 6 (5-19); ASPARTATE AMINO TRANSFERASE 16 U/L (14-36); BILIRUBIN,DIRECT 0.2 mg/dL (0.0-0.4); BILIRUBIN,TOTAL 0.4 mg/dL (0.2-1.3); BLOOD UREA NITROGEN 11 mg/dL (7-20); CARBON DIOXIDE 26 mmol/L (22-30); CHLORIDE 108 mmol/L (98-107); GLUCOSE 92 mg/dL (75-110); LIPASE 138.1 U/L (23-300); POTASSIUM 4.1 mmol/L (3.6-5.0); SODIUM 140.1 mmol/L (137-145)
--- NOTE | 2018-09-12 05:04 | RADIOLOGY REPORT (SQ) ---
EXAM DESCRIPTION: US ABDOMEN LIMITED COMPLETED DATE/TME: 09/12/2018 04:03 CLINICAL HISTORY: 33 years, Female, RUQ pain COMPARISON: None. TECHNIQUE: Transverse longitudinal sonographic images of the right upper quadrant LIMITATIONS: None. FINDINGS: The liver is homogenous in echotexture without focal lesion. Mobile, shadowing stones throughout the gallbladder lumen. No gallbladder wall thickening. Negative sonographic Glover's sign. No pericholecystic fluid. The CBD measures 2.7 mm. No ascites. The visualized pancreas, abdominal aorta, inferior vena cava, right kidney are unremarkable. IMPRESSION: Cholelithiasis. No sonographic evidence for cholecystitis copyright 2010 [employer]- All Rights Reserved
[2018-09-12] MEDS ORDERED: KETOROLAC TROMETHAMINE 60 MG/2 ML SDV IM ONE (05:37)
[2018-09-12] MEDS ORDERED: CYCLOBENZAPRINE HCL 10 MG TABLET PO ONE (05:38)
[2018-09-12 05:54] VITALS: BP 147/95
== END 2018-09-12 06:04 | disposition home or self-care (01) ==
LOC: ER 03:44
DX: K80.20 Calculus of gallbladder without cholecystitis without obstruction (principal); R10.11 Right upper quadrant pain; R51 Headache; Z90.710 Acquired absence of both cervix and uterus; Z88.5 Allergy status to narcotic agent; Z88.6 Allergy status to analgesic agent
CPT/HCPCS: 99284; 96372; 36415; 83690; 85025; 81025; 80053; 81001; 76705; J3490 ×2; J1885

== ENCOUNTER 2018-10-03 11:56 | Emergency (ER) | payer MEDICAID ==
[2018-10-03] MEDS ORDERED: RINGERS SOLUTION,LACTATED 1,000 ML IV ONE (13:09)
[2018-10-03] MEDS ORDERED: ONDANSETRON HCL INJ/PF 4 MG/2 ML SDV IV ONE (13:09)
--- NOTE | 2018-10-03 13:09 | ER Document Report ---
ED Medical Screen (RME) - General Chief Complaint: Abdominal Pain Stated Complaint: STOMACH PAIN Time Seen by Provider: 10/03/18 12:56 Mode of Arrival: Ambulatory Information source: Patient Notes: This is a 33-year-old female with a history of cholelithiasis, migraines, epilepsy (noncompliant with antiepileptics) who presents to the emergency room with decreased p.o. intake, upper abdominal discomfort. Patient was recently evaluated in the ER found to have gallstones on ultrasound. She was referred to the surgical clinic and was initially given a date for cholecystectomy. Anesthesia refused the surgery given the patient's history of seizures with anesthesia. Patient presents with continued symptoms. She notes decreased p.o. intake. TRAVEL OUTSIDE OF THE [place] IN LAST 30 DAYS: No - Related Data Allergies/Adverse Reactions: hydrocodone Allergy (Verified 10/03/18 12:02) latex Allergy (Verified 10/03/18 12:02) topiramate [From Topamax] Allergy (Verified 10/03/18 12:02) Past Medical History - Social History Frequency of alcohol use: None Drug Abuse: None - Past Medical History Cardiac Medical History: Denies: Hx Coronary Artery Disease, Hx Heart Attack, Hx Hypertension Pulmonary Medical History: Denies: Hx Asthma, Hx Bronchitis, Hx COPD, Hx Pneumonia Neurological Medical History: Reports: Hx Migraine, Hx Seizures - EPILEPSY, LAST ONE 3MONTHS AGO, seizures in sleep. Denies: Hx Cerebrovascular Accident Renal/ Medical History: Denies: Hx Peritoneal Dialysis Musculoskeltal Medical History: Denies Hx Arthritis Past Surgical History: Reports: Hx Hysterectomy, Hx Tonsillectomy, Hx Tubal Ligation - Immunizations Immunizations up to date: Yes Hx Diphtheria, Pertussis, Tetanus Vaccination: Yes History of Influenza Vaccine for 06/2017 - 11/2017 Season: No Physical Exam - Vital signs Vitals: Temp Pulse Resp BP Pulse Ox 98.6 F 80 18 137/97 H 100 10/03/18 12:20 10/03/18 12:20 10/03/18 12:20 10/03/18 12:20 10/03/18 12:20 Course - Vital Signs Vital signs: Temp Pulse Resp BP Pulse Ox 98.6 F 80 18 137/97 H 100 10/03/18 12:20 10/03/18 12:20 10/03/18 12:20 10/03/18 12:20 10/03/18 12:20
[2018-10-03 14:06] LABS: APPEARANCE,URINE SLIGHTLY-CLOUDY; BILIRUBIN,URINE NEGATIVE (NEGATIVE); COLOR,URINE YELLOW; GLUCOSE, URINE NEGATIVE (NEGATIVE); KETONES,URINE NEGATIVE (NEGATIVE); LEUKOCYTE ESTERASE,URINE NEGATIVE (NEGATIVE); NITRITE,URINE NEGATIVE (NEGATIVE); PROTEIN,URINE NEGATIVE (NEGATIVE); URINE SPECIFIC GRAVITY 1.015; UROBILINOGEN,URINE NEGATIVE mg/dL (<2.0)
[2018-10-03 14:34] LABS: ABSOLUTE EOSINOPHILS # (AUTO) 0.1 10^3/uL (0.0-0.6); ABSOLUTE LYMPHOCYTES (AUTO) 2.2 10^3/uL (0.5-4.7); ABSOLUTE MONOCYTES (AUTO) 0.3 10^3/uL (0.1-1.4); ABSOLUTE NEUT (AUTO) 2.1 10^3/uL (1.7-8.2); HEMATOCRIT 43.6 % (36.0-47.0); HEMOGLOBIN 15.1 g/dL (12.0-15.5); LYMPHOCYTES % (AUTO) 46.1 % (13-45); MEAN CORPUSCULAR HEMOGLOBIN 30.9 pg (27.0-33.4); MEAN CORPUSCULAR HGB CONC 34.7 g/dL (32.0-36.0); MEAN CORPUSCULAR VOLUME 89 fl (80-97); MONOCYTES % (AUTO) 6.7 % (3-13); PLATELET COUNT 233 10^3/uL (150-450); RED BLOOD COUNT 4.89 10^6/uL (3.72-5.28); RED CELL DISTRIBUTION WIDTH 13.7 % (11.5-14.0); SEGMENTED NEUTROPHILS % (AUTO) 44.2 % (42-78); TOTAL CELLS COUNTED % (AUTO) 100 %; WHITE BLOOD COUNT 4.8 10^3/uL (4.0-10.5)
[2018-10-03 14:44] LABS: BLOOD UREA NITROGEN 9 mg/dL (7-20); CALCIUM 9.5 mg/dL (8.4-10.2); CHLORIDE 106 mmol/L (98-107); GLUCOSE 95 mg/dL (75-110); POTASSIUM 4.5 mmol/L (3.6-5.0)
[2018-10-03 14:45] LABS: ALANINE AMINOTRANSFERASE 22 U/L (9-52); ALBUMIN 4.8 g/dL (3.5-5.0); ALKALINE PHOSPHATASE 68 U/L (38-126); ANION GAP 10 (5-19); ASPARTATE AMINO TRANSFERASE 20 U/L (14-36); BILIRUBIN,DIRECT 0.2 mg/dL (0.0-0.4); BILIRUBIN,TOTAL 0.6 mg/dL (0.2-1.3); CARBON DIOXIDE 22 mmol/L (22-30)
[2018-10-03] MEDS ORDERED: OXYCODONE-ACETAMINOPHEN 5-325 MG TABLET PO ONE (15:07)
--- NOTE | 2018-10-03 15:16 | ER Document Report ---
ED General - General Chief Complaint: Abdominal Pain Stated Complaint: STOMACH PAIN Time Seen by Provider: 10/03/18 12:56 Mode of Arrival: Ambulatory TRAVEL OUTSIDE OF THE [place] IN LAST 30 DAYS: No - HPI Notes: Patient is a 33-year-old female that presents to the emergency department for chief complaint of right upper quadrant abdominal pain. Patient reports pain in her right upper quadrant for the last month. Her pain is sharp and nonradiating. Her pain is worse after eating. She denies relieving factors. She has not taken any [id number] pain medication. She states of the last 3 days it has been a little bit more severe. She did have an appointment with surgery after being told she had gallstones. Patient states the anesthesiologist did not feel comfortable with her getting anesthesia because of her surgery history and noncompliance with antiepileptic medications. Patient states that her antiepileptic medicines make her worse. She states she had an appointment on September 18 with neurology which she missed. Patient has an appointment tomorrow with general surgery again. She reports nausea but denies any vomiting. She denies any fevers or diarrhea. She denies new symptoms today. Past Medical History: Seizures, migraines Past Surgical History: Partial hysterectomy, tubal ligation, tonsillectomy Social History: Daily tobacco. Denies drugs and alcohol Family History: Reviewed and noncontributory for presenting illness Allergies: Reviewed, see documented allergy list. REVIEW OF SYSTEMS: CONSTITUTIONAL : No fever No chills No diaphoresis No recent illness EENT: No vision changes No congestion No sore throat CARDIOVASCULAR: No chest pain No palpitations RESPIRATORY: No shortness of breath No cough No difficulty breathing GASTROINTESTINAL: abdominal pain nausea No vomiting No diarrhea GENITOURINARY: No dysuria No hematuria No difficulty urinating MUSCULOSKELETAL: No back pain No leg pain No arm pain SKIN: No rashes No lesions LYMPHATIC: No swollen, enlarged glands. NEUROLOGICAL: No lightheadedness No headache No weakness No paresthesias PSYCHIATRIC: No anxiety No depression PHYSICAL EXAMINATION: Vital signs reviewed, nursing noted reviewed. GENERAL: Well-appearing, well-nourished and in no acute distress. HEAD: Atraumatic, normocephalic. EYES: Eyes appear normal, extraocular movements intact, sclera anicteric, conjunctiva are normal. ENT: nares patent, oropharynx clear without exudates. Moist mucous membranes. NECK: Normal range of motion, supple without lymphadenopathy LUNGS: Breath sounds clear to auscultation bilaterally and equal. No wheezes rales or rhonchi. HEART: Regular rate and rhythm without murmurs ABDOMEN: Soft, right upper quadrant tenderness, normoactive bowel sounds. No rebound, guarding, or rigidity. No masses appreciated. EXTREMITIES: Nontender, good range of motion, no pitting or edema. NEUROLOGICAL: No focal neurological deficits. Moves all extremities spontaneously Motor and sensory grossly intact on exam. PSYCH: Normal mood, normal affect. SKIN: Warm, Dry, normal turgor, no rashes or lesions noted on exposed skin - Related Data Allergies/Adverse Reactions: hydrocodone Allergy (Verified 10/03/18 12:02) latex Allergy (Verified 10/03/18 12:02) topiramate [From Topamax] Allergy (Verified 10/03/18 12:02) Past Medical History - General Information source: Patient - Social History Smoking Status: Current Every Day Smoker Frequency of alcohol use: None Drug Abuse: None Family History: Reviewed & Not Pertinent Patient has suicidal ideation: No Patient has homicidal ideation: No - Past Medical History Cardiac Medical History: Denies: Hx Coronary Artery Disease, Hx Heart Attack, Hx Hypertension Pulmonary Medical History: Denies: Hx Asthma, Hx Bronchitis, Hx COPD, Hx Pneumonia Neurological Medical History: Reports: Hx Migraine, Hx Seizures - EPILEPSY, LAST ONE 3MONTHS AGO, seizures in sleep. Denies: Hx Cerebrovascular Accident Renal/ Medical History: Denies: Hx Peritoneal Dialysis Musculoskeletal Medical History: Denies Hx Arthritis Past Surgical History: Reports: Hx Hysterectomy, Hx Tonsillectomy, Hx Tubal Ligation - Immunizations Immunizations up to date: Yes Hx Diphtheria, Pertussis, Tetanus Vaccination: Yes Physical Exam - Vital signs Vitals: Temp Pulse Resp BP Pulse Ox 98.6 F 80 18 137/97 H 100 10/03/18 12:20 10/03/18 12:20 10/03/18 12:20 10/03/18 12:20 10/03/18 12:20 Course - Re-evaluation Re-evalutation: 10/03/18 15:18 Vitals reviewed. Nursing notes reviewed. I reviewed her ultrasound from August which showed cholelithiasis. Patient does have some tenderness in her right upper quadrant with no peritoneal signs. The remainder of abdominal exam is benign. She is tolerating oral intake in the room and is nontoxic-appearing. Patient will be given Zofran and Percocet for symptomatic management. Her lab work today shows no elevated alk phos, total bili or LFTs. Patient does not have acute cholecystitis. She has an appointment tomorrow morning with Dr. Gutierrez. I encouraged her to keep this appointment to discuss options for surgery. Patient symptoms likely related to her gallstones. She is otherwise stable for outpatient management. He is in agreement with this plan. She will return for new or worsening symptoms. Laboratory 10/03/18 10/03/18 10/03/18 13:43 13:43 14:23 WBC 4.8 RBC 4.89 Hgb 15.1 Hct 43.6 MCV 89 MCH 30.9 MCHC 34.7 RDW 13.7 Plt Count 233 Seg Neutrophils % 44.2 Lymphocytes % 46.1 H Monocytes % 6.7 Eosinophils % 2.0 Basophils % 1.0 Absolute Neutrophils 2.1 Absolute Lymphocytes 2.2 Absolute Monocytes 0.3 Absolute Eosinophils 0.1 Absolute Basophils 0.0 Sodium Cancelled Potassium Cancelled Chloride Cancelled Carbon Dioxide Cancelled Anion Gap Cancelled BUN Cancelled Creatinine Cancelled Est GFR ( Amer) Cancelled Est GFR (Non-Af Amer) Cancelled Glucose Cancelled Calcium Cancelled Total Bilirubin Cancelled Direct Bilirubin Cancelled Neonat Total Bilirubin Cancelled Neonat Direct Bilirubin Cancelled Neonat Indirect Bili Cancelled AST Cancelled ALT Cancelled Alkaline Phosphatase Cancelled Total Protein Cancelled Albumin Cancelled Urine Color YELLOW Urine Appearance SLIGHTLY-CLOUDY Urine pH 5.0 Ur Specific [place] 1.015 Urine Protein NEGATIVE Urine Glucose (UA) NEGATIVE Urine Ketones NEGATIVE Urine Blood NEGATIVE Urine Nitrite NEGATIVE Urine Bilirubin NEGATIVE Urine Urobilinogen NEGATIVE Ur Leukocyte Esterase NEGATIVE Urine WBC (Auto) 3 Urine RBC (Auto) 1 Squamous Epi Cells Auto 8 Urine Mucus (Auto) OCC Urine Ascorbic Acid NEGATIVE 10/03/18 14:23 WBC RBC Hgb Hct MCV MCH MCHC RDW Plt Count Seg Neutrophils % Lymphocytes % Monocytes % Eosinophils % Basophils % Absolute Neutrophils Absolute Lymphocytes Absolute Monocytes Absolute Eosinophils Absolute Basophils Sodium 138.0 Potassium 4.5 Chloride 106 Carbon Dioxide 22 Anion Gap 10 BUN 9 Creatinine 0.78 Est GFR ( Amer) > 60 Est GFR (Non-Af Amer) > 60 Glucose 95 Calcium 9.5 Total Bilirubin 0.6 Direct Bilirubin 0.2 Neonat Total Bilirubin Not Reportable Neonat Direct Bilirubin Not Reportable Neonat Indirect Bili Not Reportable AST 20 ALT 22 Alkaline Phosphatase 68 Total Protein 8.0 Albumin 4.8 Urine Color Urine Appearance Urine pH Ur Specific [place] Urine Protein Urine Glucose (UA) Urine Ketones Urine Blood Urine Nitrite Urine Bilirubin Urine Urobilinogen Ur Leukocyte Esterase Urine WBC (Auto) Urine RBC (Auto) Squamous Epi Cells Auto Urine Mucus (Auto) Urine Ascorbic Acid - Vital Signs Vital signs: Temp Pulse Resp BP Pulse Ox 98.6 F 80 18 137/97 H 100 10/03/18 12:20 10/03/18 12:20 10/03/18 12:20 10/03/18 12:20 10/03/18 12:20 - Laboratory Result Diagrams: 10/03/18 14:23 10/03/18 14:23 Laboratory results interpreted by me: 10/03/18 14:23 Lymphocytes % 46.1 H Discharge - Discharge Clinical Impression: Biliary colic Condition: Stable Disposition: HOME, SELF-CARE Instructions: Gallbladder Disease ([facility]) Additional Instructions: Please return to the emergency department if you have any worsening, or concern of your symptoms. Please return to the emergency department if you develop chest pain, difficulty breathing, severe abdominal pain, or ongoing vomiting. Please follow-up with your primary care physician in 2-3 days and any other recommended physicians. If prescribed, take all medications as directed. If you have any questions or concerns do not hesitate to return the emergency department for evaluation. Keep your appointment tomorrow with surgery Referrals: YAHIR GUTIERREZ MD [ACTIVE STAFF] - Follow up tomorrow
[2018-10-03] MEDS ORDERED: PROMETHAZINE HCL 25 MG TABLET PO ONE (15:27)
[2018-10-03 15:45] VITALS: BP 140/101
== END 2018-10-03 15:45 | disposition home or self-care (01) ==
LOC: ER 11:56
DX: K80.50 Calculus of bile duct without cholangitis or cholecystitis without obstruction (principal); R10.11 Right upper quadrant pain; F17.200 Nicotine dependence, unspecified, uncomplicated; Z98.51 Tubal ligation status; Z88.6 Allergy status to analgesic agent; Z91.040 Latex allergy status; Z90.710 Acquired absence of both cervix and uterus
CPT/HCPCS: 99284; 36415; 85025; 80053; 81001; J3490

== ENCOUNTER 2018-10-30 19:34 | Emergency (ER) | payer MEDICAID ==
--- NOTE | 2018-10-30 20:00 | ER Document Report ---
ED General - General Chief Complaint: Probable Seizure Stated Complaint: POSSIBLE SEIZURE Time Seen by Provider: 10/30/18 20:00 Primary Care Provider: REINA GIBSON MD [Primary Care Provider] - Follow up as needed Notes: Patient is a 33-year-old female with history of seizure that presents to the emergency department for chief complaint of seizure. Patient was at a diagnostic center to obtain an EEG, while she was there, she had 4 brief less than 1 minute seizures, she did hit her head, and has some pain in her neck. She denies having any bowel or bladder incontinence or biting her tongue with this episode of seizure. She is been having them intermittently particularly in the evening. They started up again after she was started on BuSpar which was just discontinued by the neurologist she is seeing, she was also taken off Keppra which she was previously on. She apparently typically has full body tonic-clonic type seizures, which is what she had today. She had a brief postictal period, but now is at her baseline according to her significant other. Past Medical History: Seizure disorder, anxiety Past Surgical History: Tubal ligation, hysterectomy, tonsillectomy Social History: Admits to smoking cigarettes, denies alcohol or drug use. Family History: Reviewed and noncontributory for presenting illness Allergies: Reviewed, see documented allergy list. REVIEW OF SYSTEMS: Other than noted above, the 12 point review of systems was reviewed with the patient and were negative, all pertinent findings are included in the HPI. PHYSICAL EXAMINATION: Vital signs reviewed, nursing noted reviewed. GENERAL: Well-appearing, well-nourished and in no acute distress. HEAD: Atraumatic, normocephalic. EYES: Eyes appear normal, extraocular movements intact, sclera anicteric, conjunctiva are normal. PERRLA ENT: nares patent, oropharynx clear without exudates. Moist mucous membranes. NECK: Patient is currently in a cervical collar, there is mild midline tenderness to palpation, collar was left in place. LUNGS: Breath sounds clear to auscultation bilaterally and equal. No wheezes rales or rhonchi. HEART: Regular rate and rhythm without murmurs ABDOMEN: Soft, nontender, normoactive bowel sounds. No rebound, guarding, or rigidity. No masses appreciated. EXTREMITIES: Nontender, good range of motion, no pitting or edema. NEUROLOGICAL: No focal neurological deficits. Moves all extremities spontaneously Motor and sensory grossly intact on exam. PSYCH: Normal mood, normal affect. SKIN: Warm, Dry, normal turgor, no rashes or lesions noted on exposed skin TRAVEL OUTSIDE OF THE [place] IN LAST 30 DAYS: No - Related Data Allergies/Adverse Reactions: hydrocodone Allergy (Verified 10/03/18 12:02) latex Allergy (Verified 10/03/18 12:02) topiramate [From Topamax] Allergy (Verified 10/03/18 12:02) Past Medical History - Social History Smoking Status: Current Every Day Smoker Family History: Reviewed & Not Pertinent - Past Medical History Cardiac Medical History: Denies: Hx Coronary Artery Disease, Hx Heart Attack, Hx Hypertension Pulmonary Medical History: Denies: Hx Asthma, Hx Bronchitis, Hx COPD, Hx Pneumonia Neurological Medical History: Reports: Hx Migraine, Hx Seizures - EPILEPSY, LAST ONE 3MONTHS AGO, seizures in sleep. Denies: Hx Cerebrovascular Accident Renal/ Medical History: Denies: Hx Peritoneal Dialysis Musculoskeletal Medical History: Denies Hx Arthritis Past Surgical History: Reports: Hx Hysterectomy, Hx Tonsillectomy, Hx Tubal Ligation - Immunizations Immunizations up to date: Yes Hx Diphtheria, Pertussis, Tetanus Vaccination: Yes Physical Exam - Vital signs Vitals: Resp Pulse Ox 23 H 100 10/30/18 19:42 10/30/18 19:42 Course - Re-evaluation Re-evalutation: Patient seen and examined vital signs reviewed. CT imaging of the head and cervical spine were obtained Patient was treated with 0.5 mg of IV Dilaudid, and Zofran 4 mg for her neck pain. Patient was initially ordered Toradol, but stated that it never helps with her pain. Results were reviewed when available and demonstrated negative imaging of the head and cervical spine The patient was re-evaluated and was stable Evaluation was most consistent with seizure nonepileptic, advised to follow-up with her neurologist, I did call the EEG facility, and they stated they got enough data for the neurologist to review, and stated that the patient can be discharged home at this point. Results were discussed with the patient at this point, after careful consideration I feel that that patient can be discharged from the emergency department, the patient was educated treatments and reasons to return to the emergency department based on their presumed diagnosis as noted above, they were advised to followup with a primary care physician in 2-3 days. Patient was agreeable to plan of care. *Note is created using voice recognition software and may contain spelling, syntax or grammatical errors. Cervical Spine CT 10/30/18 20:35 IMPRESSION: 1. No acute intracranial hemorrhage. 2. No acute cervical fracture. Head CT 10/30/18 20:35 IMPRESSION: 1. No acute intracranial hemorrhage. 2. No acute cervical fracture. - Vital Signs Vital signs: Temp Pulse Resp BP Pulse Ox 21 H 122/77 100 10/30/18 20:02 10/30/18 20:03 10/30/18 20:03 - EKG Interpretation by Me Additional EKG results interpreted by me: EKG demonstrates sinus tachycardia with a ventricular rate of 115 bpm, normal axis, QTC 471 ms, no evidence of acute ischemia in this EKG, no prior available for comparison. Discharge - Discharge Clinical Impression: Seizure, Neck pain Condition: Stable Disposition: HOME, SELF-CARE Instructions: Seizure, Known Epileptic ([facility]) Additional Instructions: please follow-up with your neurologist, for your results from your EEG testing,, I would encourage you to continue not taking the previously prescribed Buspar as this medication is known to lower the threshold for siezures. Referrals: REINA GIBSON MD [Primary Care Provider] - Follow up as needed
[2018-10-30] MEDS ORDERED: LEVETIRACETAM 1000 MG/NACL-ISO 1,000 MG/100 ML RTUPB IV ONE (20:35)
[2018-10-30] MEDS ORDERED: LORAZEPAM INJ 2 MG/1 ML VIAL IV ONE (20:40)
[2018-10-30] MEDS ORDERED: KETOROLAC TROMETHAMINE INJ/PF 30 MG/1 ML SDV IV ONE (21:39)
--- NOTE | 2018-10-30 21:56 | RADIOLOGY REPORT (SQ) ---
CT BRAIN AND CERVICAL SPINE WITHOUT IV CONTRAST HISTORY: Trauma. COMPARISON: None. TECHNIQUE: CT scan of the brain and cervical spine without IV contrast. This exam was performed according to our departmental dose-optimization program, which includes automated exposure control, adjustment of the mA and/or kV according to patient size and/or use of iterative reconstruction technique. FINDINGS: BRAIN: The ventricles, cisterns, and sulci are age-appropriate. No acute intracranial hemorrhage or extra-axial fluid collection. No midline shift or mass effect. The paranasal sinuses and mastoid air cells are clear. No depressed skull fracture. CERVICAL SPINE: No acute cervical fracture or prevertebral soft tissue swelling. The disc spaces are preserved. The cervical alignment is maintained. IMPRESSION: 1. No acute intracranial hemorrhage. 2. No acute cervical fracture.
[2018-10-30] MEDS ORDERED: HYDROMORPHONE HCL INJ/PF 2 MG/ML AMPULE IV ONE (22:24)
[2018-10-30] MEDS ORDERED: ONDANSETRON HCL INJ/PF 4 MG/2 ML SDV IV ONE (22:24)
[2018-10-30 23:08] VITALS: BP 115/86
--- NOTE | 2018-10-31 00:28 | EKG REPORT ---
SEVERITY:- OTHERWISE NORMAL ECG - SINUS TACHYCARDIA : Confirmed by: Colleen Marinelli MD 31-Oct-2018 00:27:20
== END 2018-10-30 23:11 | disposition home or self-care (01) ==
LOC: ER 19:34
DX: R56.9 Unspecified convulsions (principal); M54.2 Cervicalgia; S09.90XA Unspecified injury of head, initial encounter; W22.8XXA Striking against or struck by other objects, initial encounter; F17.210 Nicotine dependence, cigarettes, uncomplicated
CPT/HCPCS: 93005; 99284; 96374; 96375; 82962; 70450; 72125; 93010; J1170; J2060; J2405

== ENCOUNTER 2018-11-02 08:54 | Day surgery (SDC) | payer MEDICAID ==
[2018-11-02] MEDS ORDERED: NORMAL SALINE 1000 ML 1,000 ML IV ONE (10:01)
[2018-11-02] MEDS ORDERED: DICYCLOMINE HCL INJ 20 MG/2 ML AMPULE IM ONE (10:02)
[2018-11-02] MEDS ORDERED: FAMOTIDINE INJ/PF 20 MG/2 ML SDV IV ONE (10:02)
[2018-11-02 10:08] LABS: APPEARANCE,URINE CLOUDY; BILIRUBIN,URINE NEGATIVE (NEGATIVE); COLOR,URINE YELLOW; GLUCOSE, URINE NEGATIVE (NEGATIVE); KETONES,URINE NEGATIVE (NEGATIVE); LEUKOCYTE ESTERASE,URINE NEGATIVE (NEGATIVE); NITRITE,URINE NEGATIVE (NEGATIVE); PROTEIN,URINE NEGATIVE (NEGATIVE); URINE SPECIFIC GRAVITY 1.006; UROBILINOGEN,URINE NEGATIVE mg/dL (<2.0)
[2018-11-02 10:33] LABS: ABSOLUTE BASOPHILS # (AUTO) 0.1 10^3/uL (0.0-0.2); ABSOLUTE EOSINOPHILS # (AUTO) 0.1 10^3/uL (0.0-0.6); ABSOLUTE LYMPHOCYTES (AUTO) 1.9 10^3/uL (0.5-4.7); ABSOLUTE MONOCYTES (AUTO) 0.4 10^3/uL (0.1-1.4); ABSOLUTE NEUT (AUTO) 2.3 10^3/uL (1.7-8.2); BASOPHILS % (AUTO) 1.4 % (0-2); EOSINOPHILS % (AUTO) 2.6 % (0-6); LYMPHOCYTES % (AUTO) 38.9 % (13-45); MEAN CORPUSCULAR HEMOGLOBIN 30.7 pg (27.0-33.4); MEAN CORPUSCULAR HGB CONC 34.1 g/dL (32.0-36.0); MEAN CORPUSCULAR VOLUME 90 fl (80-97); MONOCYTES % (AUTO) 8.9 % (3-13); PLATELET COUNT 263 10^3/uL (150-450); RED BLOOD COUNT 4.56 10^6/uL (3.72-5.28); RED CELL DISTRIBUTION WIDTH 13.6 % (11.5-14.0); SEGMENTED NEUTROPHILS % (AUTO) 48.2 % (42-78); TOTAL CELLS COUNTED % (AUTO) 100 %; WHITE BLOOD COUNT 4.8 10^3/uL (4.0-10.5)
[2018-11-02 10:55] LABS: ALANINE AMINOTRANSFERASE 18 U/L (9-52); ALBUMIN 4.2 g/dL (3.5-5.0); ALKALINE PHOSPHATASE 75 U/L (38-126); ANION GAP 8 (5-19); ASPARTATE AMINO TRANSFERASE 25 U/L (14-36); BILIRUBIN,DIRECT 0.3 mg/dL (0.0-0.4); BILIRUBIN,TOTAL 0.6 mg/dL (0.2-1.3); BLOOD UREA NITROGEN 14 mg/dL (7-20); CALCIUM 9.4 mg/dL (8.4-10.2); CARBON DIOXIDE 27 mmol/L (22-30); CHLORIDE 104 mmol/L (98-107); GLUCOSE 90 mg/dL (75-110); LIPASE 143.3 U/L (23-300); POTASSIUM 4.6 mmol/L (3.6-5.0); TOTAL PROTEIN 7.2 g/dL (6.3-8.2)
[2018-11-02] MEDS ORDERED: PROCHLORPERAZINE EDISYLATE INJ 10 MG/2 ML VIAL IV ONE (11:19)
[2018-11-02] MEDS ORDERED: MORPHINE SULFATE 10 MG/ML INJ IV ONE (11:19)
--- NOTE | 2018-11-02 13:03 | RADIOLOGY REPORT (SQ) ---
EXAM DESCRIPTION: U/S ABDOMEN LIMITED W/O DOP COMPLETED DATE/TIME: 11/02/2018 12:49 pm REASON FOR STUDY: ruq pain COMPARISON: Abdominal ultrasound 09/12/2018 TECHNIQUE: Dynamic and static grayscale images acquired of the abdomen and recorded on PACS. Additio nal selected color Doppler and spectral images recorded. LIMITATIONS: Midline bowel gas, body habitus FINDINGS: PANCREAS: Not visualized due to midline bowel gas LIVER: No masses. Echotexture normal. LIVER VASCULATURE: Normal directional flow of the main portal vein and hepatic veins. GALLBLADDER: Multiple stones in the gallbladder. No gallbladder wall thickening or pericholecystic f luid ULTRASOUND-DETECTED GLOVER'S SIGN: Positive sonographic Glover's sign INTRAHEPATIC DUCTS AND COMMON DUCT: CBD and intrahepatic ducts normal caliber. No filling defects. INFERIOR VENA CAVA: Normal flow. AORTA: No aneurysm. RIGHT KIDNEY: Normal size. Normal echogenicity. No solid or suspicious masses. No hydronephrosis. No calcifications. PERITONEAL AND RIGHT PLEURAL SPACE: No ascites or effusions. OTHER: No other significant findings. IMPRESSION: Gallstones in the gallbladder, with a positive sonographic Glover sign TECHNICAL DOCUMENTATION: JOB ID: [id number] [employer]- All Rights Reserved Reading location - IP/workstation name: [email or web address]
[2018-11-02] MEDS ORDERED: NORMAL SALINE 1000 ML 1,000 ML IV STA (13:38)
[2018-11-02] MEDS ORDERED: CEFOXITIN INJ 1 GM VIAL IV ONE (13:39)
--- NOTE | 2018-11-02 13:49 | ER Document Report ---
ED General - General Chief Complaint: Abdominal Pain Stated Complaint: ABDOMINAL PAIN Time Seen by Provider: 11/02/18 09:41 TRAVEL OUTSIDE OF THE U[place] IN LAST 30 DAYS: No - HPI Patient complains to provider of: Abdominal pain Notes: Patient here for evaluation of right upper quadrant pain. Patient states ongoing condition patient states she has been trying to follow a low-fat diet is that she knows she has underlying gallstones. Patient states nausea no vomiting. No fevers no chills no trauma to the area. Patient is resting comfortably upon my evaluation last time she had anything E was 10:00 PM night prior to arrival - Related Data Allergies/Adverse Reactions: hydrocodone Allergy (Verified 11/02/18 09:36) ketorolac [From Toradol] Allergy (Verified 11/02/18 09:36) latex Allergy (Verified 11/02/18 09:36) ondansetron [From Zofran] Allergy (Verified 11/02/18 09:36) topiramate [From Topamax] Allergy (Verified 11/02/18 09:36) Past Medical History - Social History Smoking Status: Current Every Day Smoker Frequency of alcohol use: None Drug Abuse: None Family History: Reviewed & Not Pertinent Patient has suicidal ideation: No Patient has homicidal ideation: No - Past Medical History Cardiac Medical History: Denies: Hx Coronary Artery Disease, Hx Heart Attack, Hx Hypertension Pulmonary Medical History: Denies: Hx Asthma, Hx Bronchitis, Hx COPD, Hx Pneumonia Neurological Medical History: Reports: Hx Migraine, Hx Seizures - EPILEPSY, LAST ONE 3MONTHS AGO, seizures in sleep. Denies: Hx Cerebrovascular Accident Renal/ Medical History: Denies: Hx Peritoneal Dialysis Musculoskeletal Medical History: Denies Hx Arthritis Past Surgical History: Reports: Hx Hysterectomy, Hx Tonsillectomy, Hx Tubal Ligation - Immunizations Immunizations up to date: Yes Hx Diphtheria, Pertussis, Tetanus Vaccination: Yes Review of Systems - Review of Systems Constitutional: No symptoms reported EENT: No symptoms reported Cardiovascular: No symptoms reported Respiratory: No symptoms reported Gastrointestinal: Abdominal pain Genitourinary: No symptoms reported Female Genitourinary: No symptoms reported Musculoskeletal: No symptoms reported Skin: No symptoms reported Hematologic/Lymphatic: No symptoms reported Neurological/Psychological: No symptoms reported -: Yes All other systems reviewed and negative Physical Exam - Vital signs Vitals: Temp Pulse Resp BP Pulse Ox 98.9 F 108 H 16 129/84 H 99 11/02/18 08:57 11/02/18 08:57 11/02/18 08:57 11/02/18 08:57 11/02/18 08:57 Interpretation: Normal - General General appearance: Appears well, Alert - HEENT Head: Normocephalic, Atraumatic Eyes: Normal Pupils: PERRL - Respiratory Respiratory status: No respiratory distress Chest status: Nontender Breath sounds: Normal Chest palpation: Normal - Cardiovascular Rhythm: Regular Heart sounds: Normal auscultation Murmur: No - Abdominal Inspection: Normal Distension: No distension Bowel sounds: Normal Tenderness: Tender - Mild, Glover's sign Organomegaly: No organomegaly - Back Back: Normal, Nontender - Extremities General upper extremity: Normal inspection, Nontender, Normal color, Normal ROM, Normal temperature General lower extremity: Normal inspection, Nontender, Normal color, Normal ROM, Normal temperature, Normal weight bearing. No: Da's sign - Neurological Neuro grossly intact: Yes Cognition: Normal Orientation: AAOx4 Donte Coma Scale Eye Opening: Spontaneous Donte Coma Scale Verbal: Oriented Donte Coma Scale Motor: Obeys Commands Drain Coma Scale Total: 15 Speech: Normal Motor strength normal: LUE, RUE, LLE, RLE Sensory: Normal - Psychological Associated symptoms: Normal affect, Normal mood - Skin Skin Temperature: Warm Skin Moisture: Dry Skin Color: Normal Course - Re-evaluation Re-evalutation: 11/02/18 15:13 Laboratory studies not revealing critical pathology ultrasound showed cholelithiasis with a positive Glover sign. Patient case was discussed with surgeon rn practitioner Dr. Lamb who bedside evaluation agrees take the patient to the ER for further evaluation - Vital Signs Vital signs: Temp Pulse Resp BP Pulse Ox 98.9 F 108 H 18 147/123 H 98 11/02/18 08:57 11/02/18 08:57 11/02/18 13:53 11/02/18 13:53 11/02/18 13:53 - Laboratory Result Diagrams: 11/02/18 10:05 11/02/18 10:05 Discharge - Discharge Clinical Impression: Biliary colic symptom Cholelithiasis Qualifiers: Cholelithiasis location: other site Biliary obstruction: without biliary obstruction Qualified Code(s): K80.80 - Other cholelithiasis without obstruction Condition: Good Disposition: ADMITTED OBSERVATION Admitting Provider: Surgicalist Monisha Lamb Unit Admitted: OR
[2018-11-02] MEDS ORDERED: ONDANSETRON HCL INJ/PF 4 MG/2 ML SDV IV PRN (15:08)
[2018-11-02] MEDS ORDERED: MORPHINE SULFATE 10 MG/ML INJ IV PRN (15:08)
[2018-11-02] MEDS ORDERED: DEXAMETHASONE SOD PHOSPHATE INJ 4 MG/1 ML VIAL ONE (15:28)
[2018-11-02] MEDS ORDERED: ONDANSETRON HCL INJ/PF 4 MG/2 ML SDV ONE (15:28)
[2018-11-02] MEDS ORDERED: FENTANYL CITRATE INJ/PF 100 MCG/2 ML AMPUL ONE (15:28)
[2018-11-02] MEDS ORDERED: KETOROLAC TROMETHAMINE 60 MG/2 ML SDV ONE (15:28)
[2018-11-02] MEDS ORDERED: MIDAZOLAM 2 MG/2 ML INJ ONE ×2 (15:28→16:22)
[2018-11-02] MEDS ORDERED: PROPOFOL INJ 200 MG/20 ML VIAL IV ONE (15:29)
[2018-11-02] MEDS ORDERED: HYDROMORPHONE HCL INJ/PF 2 MG/ML AMPULE ONE (15:29)
[2018-11-02] MEDS ORDERED: ACETAMINOPHEN 0 MG/0 ML RTUPB IV ONE (15:29)
--- NOTE | 2018-11-02 15:52 | PDOC H&P ---
History of Present Illness Admission Date/PCP: 11/02/18 13:55 REINA GIBSON MD Patient complains of: RUQ abdominal pain History of Present Illness: SVITLANA SCHNEIDER is a 33 year old female with a several month hx of right upper abdominal quadrant pain, she has been diagnosed with cholelithiasis two months ago and presents to the ER with the above symptoms today. Past Medical History Cardiac Medical History: Denies: Coronary Artery Disease, Myocardial Infarction, Hypertension Pulmonary Medical History: Denies: Asthma, Bronchitis, Chronic Obstructive Pulmonary Disease (COPD), Pneumonia Neurological Medical History: Reports: Migraine, Seizures - EPILEPSY, LAST ONE 3MONTHS AGO, seizures in sleep Musculoskeltal Medical History: Denies: Arthritis Hematology: Denies: Anemia Past Surgical History Past Surgical History: Reports: Hysterectomy, Tonsillectomy, Tubal Ligation Social History Smoking Status: Current Every Day Smoker Family History Family History: Reviewed & Not Pertinent Parental Family History Reviewed: Yes - diabetes Children Family History Reviewed: No Sibling(s) Family History Reviewed.: No Medication/Allergy Home Medications: Diazepam [Valium 5 mg Tablet] 5 mg PO DAILYP PRN 11/02/18 Hydrochlorothiazide [Hydrodiuril 25 mg Tablet] 25 mg PO DAILY 11/02/18 Allergies/Adverse Reactions: hydrocodone Allergy (Verified 11/02/18 09:36) ketorolac [From Toradol] Allergy (Verified 11/02/18 09:36) latex Allergy (Verified 11/02/18 09:36) ondansetron [From Zofran] Allergy (Verified 11/02/18 09:36) topiramate [From Topamax] Allergy (Verified 11/02/18 09:36) Physical Exam Vital Signs: Temp Pulse Resp BP Pulse Ox 98.9 F 108 H 18 147/123 H 98 11/02/18 08:57 11/02/18 08:57 11/02/18 13:53 11/02/18 13:53 11/02/18 13:53 Intake & Output 11/01/18 11/02/18 11/03/18 06:59 06:59 06:59 Intake Total 1000 Balance 1000 Weight 106.7 kg General appearance: PRESENT: mild distress, obese Eye exam: PRESENT: EOMI Mouth exam: PRESENT: dry mucosa, neck supple Neck exam: PRESENT: full ROM Respiratory exam: PRESENT: clear to auscultation rosmery Cardiovascular exam: PRESENT: RRR GI/Abdominal exam: PRESENT: normal bowel sounds, soft, tenderness - RUQ Rectal exam: PRESENT: deferred Extremities exam: PRESENT: full ROM Musculoskeletal exam: PRESENT: full ROM Neurological exam: PRESENT: alert, altered Psychiatric exam: PRESENT: appropriate affect Skin exam: PRESENT: warm Results Laboratory Results: 11/02/18 10:05 11/02/18 10:05 11/02/18 11/02/18 11/02/18 09:40 10:05 10:05 WBC 4.8 RBC 4.56 Hgb 14.0 Hct 41.0 MCV 90 MCH 30.7 MCHC 34.1 RDW 13.6 Plt Count 263 Seg Neutrophils % 48.2 Lymphocytes % 38.9 Monocytes % 8.9 Eosinophils % 2.6 Basophils % 1.4 Absolute Neutrophils 2.3 Absolute Lymphocytes 1.9 Absolute Monocytes 0.4 Absolute Eosinophils 0.1 Absolute Basophils 0.1 Sodium Potassium Chloride Carbon Dioxide Anion Gap BUN Creatinine Est GFR ( Amer) Est GFR (Non-Af Amer) Glucose Calcium Total Bilirubin AST ALT Alkaline Phosphatase Total Protein Albumin Lipase Serum HCG, Qual NEGATIVE Urine Color YELLOW Urine Appearance CLOUDY Urine pH 8.0 Ur Specific [place] 1.006 Urine Protein NEGATIVE Urine Glucose (UA) NEGATIVE Urine Ketones NEGATIVE Urine Blood NEGATIVE Urine Nitrite NEGATIVE Ur Leukocyte Esterase NEGATIVE Urine WBC (Auto) 1 Urine RBC (Auto) 2 11/02/18 10:05 WBC RBC Hgb Hct MCV MCH MCHC RDW Plt Count Seg Neutrophils % Lymphocytes % Monocytes % Eosinophils % Basophils % Absolute Neutrophils Absolute Lymphocytes Absolute Monocytes Absolute Eosinophils Absolute Basophils Sodium 139.0 Potassium 4.6 Chloride 104 Carbon Dioxide 27 Anion Gap 8 BUN 14 Creatinine 0.85 Est GFR ( Amer) > 60 Est GFR (Non-Af Amer) > 60 Glucose 90 Calcium 9.4 Total Bilirubin 0.6 AST 25 ALT 18 Alkaline Phosphatase 75 Total Protein 7.2 Albumin 4.2 Lipase 143.3 Serum HCG, Qual Urine Color Urine Appearance Urine pH Ur Specific [place] Urine Protein Urine Glucose (UA) Urine Ketones Urine Blood Urine Nitrite Ur Leukocyte Esterase Urine WBC (Auto) Urine RBC (Auto) Impressions: Abdomen Ultrasound 11/02/18 10:03 IMPRESSION: Gallstones in the gallbladder, with a positive sonographic Glover sign Assessment & Plan - Diagnosis (2) Cholelithiasis Qualifiers: Cholelithiasis location: gallbladder Biliary obstruction: without biliary obstruction Qualified Code(s): K80.80 - Other cholelithiasis without obstruction Is this a current diagnosis for this admission?: Yes (3) Seizure Is this a current diagnosis for this admission?: Yes - Plan Summary Plan Summary: A/ RUQ pain Cholelithiasis on US, normal CBD, no evidence of infection normal LFT Normal CBC. BMP Hx of seizure and HTN P/ Admit NPO IVF bolus plus maintenance Mefoxin 2 gr IVPB [employer] to the OR Plan laparoscopic cholecystectomy possible open., possible cholangiogram. Procedure, risks, benefits., complications, alternatives, including bleeding from the liver and or injury of the common bile duct requiring transfer to a tertiary center have been discussed with the patient, her questions were answered, and she decided to proceed.
[2018-11-02 15:56] VITALS: BP 119/73
[2018-11-02] MEDS ORDERED: BUPIVACAINE HCL 0.5%-EPI 1:200000 INJ/PF 30 ML VIAL ONE (16:00)
--- NOTE | 2018-11-03 14:27 | DISCHARGE SUMMARY E ---
Discharge Summary NAME: SVITLANA SCHNEIDER : 1985 AGE: 33Y ADMITTED: 11/02/2018 DISCHARGED: 11/02/2018 FINAL DIAGNOSES: 1. SYMPTOMATIC CHOLELITHIASIS. 2. SEIZURE DISORDER. 3. HISTORY OF POSTOPERATIVE SEIZURES. PROCEDURE: None. COMPLICATIONS: None. HOSPITAL COURSE: A 33-year-old -[place] female who presented to the emergency room complaining of right upper quadrant pain, nausea. She reports to be known to have abdominal pain for the past 6 months and cholelithiasis identified about 2 months ago. In the emergency room, the patient underwent blood work, which showed within normal limits, including a normal CBC and liver profile. She also had an ultrasound of the gallbladder revealing cholelithiasis without evidence of cholecystitis or involvement of the common bile duct. The patient was evaluated and scheduled to undergo laparoscopic cholecystectomy. However, the patient was evaluated by the anesthesiologist and found to have unstable seizures, including a history of frequent postsurgical seizures, and anesthesiologist felt that the patient was not a candidate for this procedure, due to her lack of neurology support; therefore, the patient's surgery was aborted and she was transferred back to the floor and discharged to go home on the same day. DISCHARGE INSTRUCTIONS: She was discharged to home. Followup with her neurologist as soon as possible to receive elective neurologic clearance. She was instructed to return to our surgical office after elective neurologic clearance was obtained so that the surgery could be scheduled and to see the ALIREZA Jeffery. She was given a low fat diet, no fries, no fried food, no eggs, no cheese. Chicken and fish are allowed. She was given Ultram 50 mg by mouth every 6 hours as needed for pain. Activities as tolerated. DICTATING PHYSICIAN: HOLA KUMARI M.D. [id number] PHY#: [id number] ID: [id number] JOB#: [id number] ACCT: [id number] cc:HOLA KUMARI M.D. >
== END 2018-11-02 18:15 | disposition home or self-care (01) ==
LOC: ER 08:54 → EH 13:55 → UNDOADMOB 13:55 → ASU 1 13:55 → 2N 17:35 → EH 17:35 → ASU 1 18:15 → UNDODISOB 18:15
PROVIDERS: ATTEND Surgery
DX: G40.909 Epilepsy, unspecified, not intractable, without status epilepticus (principal); K80.20 Calculus of gallbladder without cholecystitis without obstruction; F17.210 Nicotine dependence, cigarettes, uncomplicated; Z53.8 Procedure and treatment not carried out for other reasons; Z79.899 Other long term (current) drug therapy; Z88.8 Allergy status to other drugs, medicaments and biological substances; Z91.040 Latex allergy status
CPT/HCPCS: 36415; 83690; 84703; 85025; 81025; 80053; 81001; 76705; J3490; J1100; J0500; J0694; J2270; J0780; J2405; J7030; S0028; J0131; J1170; J1885; J2250; J2704; J3010

== ENCOUNTER 2018-11-19 18:28 | Emergency (ER) | payer MEDICAID ==
[2018-11-19] MEDS ORDERED: FENTANYL CITRATE INJ/PF 100 MCG/2 ML AMPUL IV ONE (20:07)
[2018-11-19] MEDS ORDERED: ONDANSETRON HCL INJ/PF 4 MG/2 ML SDV IV ONE (20:07)
[2018-11-19] MEDS ORDERED: RINGERS SOLUTION,LACTATED 1,000 ML IV ONE (20:15)
--- NOTE | 2018-11-19 20:15 | ER Document Report ---
ED Medical Screen (RME) - General Chief Complaint: Nausea/Vomiting Stated Complaint: VOMITING Time Seen by Provider: 11/19/18 20:06 Primary Care Provider: REINA GIBSON MD [Primary Care Provider] - Follow up as needed Notes: Pt. presents to the ED with RUQ pain and vomiting today. Pt. stated she knows she has a history of gallstones and "thinks its infected." Pt. stated she vomited about 5 times noted "red stuff". Denies diarrhea or fever. Pt. denies dysuria or vaginal d/c. Stated she had a partial hysterctomy. GENERAL: Alert, interacts well. No acute distress. ABDOMEN: Soft, positive Glover sign. No McBurney's point tenderness non- distended. Bowel sounds present in all 4 quadrants. SKIN: Warm, dry, normal turgor. No rashes or lesions noted. I have greeted and performed a rapid initial assessment of this patient. A comprehensive ED assessment and evaluation of the patient, analysis of test results and completion of the medical decision making process will be conducted by additional ED providers. TRAVEL OUTSIDE OF THE [place] IN LAST 30 DAYS: No - Related Data Allergies/Adverse Reactions: hydrocodone Allergy (Verified 11/02/18 09:36) ketorolac [From Toradol] Allergy (Verified 11/02/18 09:36) latex Allergy (Verified 11/02/18 09:36) topiramate [From Topamax] Allergy (Verified 11/02/18 09:36) Past Medical History - Past Medical History Cardiac Medical History: Denies: Hx Coronary Artery Disease, Hx Heart Attack, Hx Hypertension Pulmonary Medical History: Denies: Hx Asthma, Hx Bronchitis, Hx COPD, Hx Pneumonia Neurological Medical History: Reports: Hx Migraine, Hx Seizures - EPILEPSY, LAST ONE 3MONTHS AGO, seizures in sleep. Denies: Hx Cerebrovascular Accident Renal/ Medical History: Denies: Hx Peritoneal Dialysis Musculoskeltal Medical History: Denies Hx Arthritis Past Surgical History: Reports: Hx Hysterectomy, Hx Tonsillectomy, Hx Tubal Ligation - Immunizations Immunizations up to date: Yes Hx Diphtheria, Pertussis, Tetanus Vaccination: Yes History of Influenza Vaccine for 06/2017 - 11/2017 Season: No Physical Exam - Vital signs Vitals: Temp Pulse Resp BP Pulse Ox 98.9 F 127 H 18 141/83 H 98 11/19/18 18:31 11/19/18 18:31 11/19/18 18:31 11/19/18 18:31 11/19/18 18:31 Course - Vital Signs Vital signs: Temp Pulse Resp BP Pulse Ox 98.9 F 127 H 18 141/83 H 98 11/19/18 18:31 11/19/18 18:31 11/19/18 18:31 11/19/18 18:31 11/19/18 18:31 Doctor's Discharge - Discharge Referrals: REINA GIBSON MD [Primary Care Provider] - Follow up as needed
[2018-11-19 20:55] LABS: ABSOLUTE BASOPHILS # (AUTO) 0.1 10^3/uL (0.0-0.2); ABSOLUTE EOSINOPHILS # (AUTO) 0.1 10^3/uL (0.0-0.6); ABSOLUTE LYMPHOCYTES (AUTO) 2.5 10^3/uL (0.5-4.7); ABSOLUTE MONOCYTES (AUTO) 0.4 10^3/uL (0.1-1.4); ABSOLUTE NEUT (AUTO) 3.2 10^3/uL (1.7-8.2); BASOPHILS % (AUTO) 1.2 % (0-2); EOSINOPHILS % (AUTO) 2.1 % (0-6); HEMATOCRIT 42.5 % (36.0-47.0); HEMOGLOBIN 14.9 g/dL (12.0-15.5); LYMPHOCYTES % (AUTO) 39.6 % (13-45); MEAN CORPUSCULAR VOLUME 89 fl (80-97); MONOCYTES % (AUTO) 6.2 % (3-13); PLATELET COUNT 275 10^3/uL (150-450); RED BLOOD COUNT 4.79 10^6/uL (3.72-5.28); RED CELL DISTRIBUTION WIDTH 13.3 % (11.5-14.0); SEGMENTED NEUTROPHILS % (AUTO) 50.9 % (42-78); TOTAL CELLS COUNTED % (AUTO) 100 %; WHITE BLOOD COUNT 6.2 10^3/uL (4.0-10.5)
[2018-11-19 21:13] LABS: ALANINE AMINOTRANSFERASE 18 U/L (9-52); ALBUMIN 4.4 g/dL (3.5-5.0); ALKALINE PHOSPHATASE 82 U/L (38-126); ANION GAP 10 (5-19); ASPARTATE AMINO TRANSFERASE 20 U/L (14-36); BILIRUBIN,DIRECT 0.3 mg/dL (0.0-0.4); BILIRUBIN,TOTAL 0.3 mg/dL (0.2-1.3); BLOOD UREA NITROGEN 18 mg/dL (7-20); CALCIUM 9.9 mg/dL (8.4-10.2); CARBON DIOXIDE 27 mmol/L (22-30); CHLORIDE 102 mmol/L (98-107); GLUCOSE 102 mg/dL (75-110); LIPASE 263.9 U/L (23-300); SODIUM 138.7 mmol/L (137-145); TOTAL PROTEIN 7.7 g/dL (6.3-8.2)
[2018-11-19] MEDS ORDERED: METOCLOPRAMIDE HCL INJ/PF 10 MG/2 ML SDV IV ONE (21:46)
--- NOTE | 2018-11-19 23:31 | RADIOLOGY REPORT (SQ) ---
EXAM DESCRIPTION: US ABDOMEN DOPPLER LIMITED COMPLETED DATE/TME: 11/19/2018 20:07 CLINICAL HISTORY: 33 years, Female, RUQ pain COMPARISON: 11/02/2018 ultrasound TECHNIQUE: Limited right upper quadrant ultrasound LIMITATIONS: None. FINDINGS: Homogenous echotexture to the liver with no focal lesion. Multiple shadowing stones throughout the gallbladder lumen. No gallbladder wall thickening or pericholecystic fluid. The CBD measures 1.1 mm. Visualized pancreas, right kidney, abdominal aorta, inferior vena cava are unremarkable. No ascites. Negative sonographic Glover sign IMPRESSION: Cholelithiasis. No sonographic evidence for cholecystitis copyright 2010 [employer]- All Rights Reserved
[2018-11-20 00:18] LABS: APPEARANCE,URINE SLIGHTLY-CLOUDY; BILIRUBIN,URINE NEGATIVE (NEGATIVE); COLOR,URINE YELLOW; GLUCOSE, URINE NEGATIVE (NEGATIVE); KETONES,URINE NEGATIVE (NEGATIVE); LEUKOCYTE ESTERASE,URINE NEGATIVE (NEGATIVE); NITRITE,URINE NEGATIVE (NEGATIVE); PROTEIN,URINE NEGATIVE (NEGATIVE)
--- NOTE | 2018-11-20 00:36 | ER Document Report ---
ED General - General Chief Complaint: Nausea/Vomiting Stated Complaint: VOMITING Time Seen by Provider: 11/19/18 20:06 Primary Care Provider: REINA GIBSON MD [Primary Care Provider] - Follow up as needed Notes: Pt. presents to the ED with RUQ pain and vomiting today. Pt. stated she knows she has a history of gallstones and "thinks its infected." Pt. stated she vomited about 5 times noted "red stuff". Denies diarrhea or fever. Pt. denies dysuria or vaginal d/c. Denies any dark stools or coffee ground emesis. Stated she had a partial hysterctomy. Past medical history: Cholelithiasis, pseudoseizures Medications: Currently none Allergies: Hydrocodone, Toradol TRAVEL OUTSIDE OF THE [place] IN LAST 30 DAYS: No - Related Data Allergies/Adverse Reactions: hydrocodone Allergy (Verified 11/02/18 09:36) ketorolac [From Toradol] Allergy (Verified 11/02/18 09:36) latex Allergy (Verified 11/02/18 09:36) topiramate [From Topamax] Allergy (Verified 11/02/18 09:36) Past Medical History - General Information source: Patient - Social History Smoking Status: Current Every Day Smoker Frequency of alcohol use: None Drug Abuse: None Family History: Reviewed & Not Pertinent Patient has suicidal ideation: No Patient has homicidal ideation: No - Past Medical History Cardiac Medical History: Denies: Hx Coronary Artery Disease, Hx Heart Attack, Hx Hypertension Pulmonary Medical History: Denies: Hx Asthma, Hx Bronchitis, Hx COPD, Hx Pneumonia Neurological Medical History: Reports: Hx Migraine, Hx Seizures - EPILEPSY, LAST ONE 3MONTHS AGO, seizures in sleep. Denies: Hx Cerebrovascular Accident Renal/ Medical History: Denies: Hx Peritoneal Dialysis Musculoskeletal Medical History: Denies Hx Arthritis Past Surgical History: Reports: Hx Gynecologic Surgery - partial hysterectomy, Hx Hysterectomy, Hx Tonsillectomy, Hx Tubal Ligation - Immunizations Immunizations up to date: Yes Hx Diphtheria, Pertussis, Tetanus Vaccination: Yes Review of Systems - Review of Systems Constitutional: No symptoms reported. denies: Fever EENT: No symptoms reported Cardiovascular: No symptoms reported Respiratory: No symptoms reported Gastrointestinal: See HPI Genitourinary: See HPI Female Genitourinary: See HPI Musculoskeletal: No symptoms reported Skin: No symptoms reported Hematologic/Lymphatic: No symptoms reported Neurological/Psychological: No symptoms reported Physical Exam - Vital signs Vitals: Temp Pulse Resp BP Pulse Ox 98.9 F 127 H 18 141/83 H 98 11/19/18 18:31 11/19/18 18:31 11/19/18 18:31 11/19/18 18:31 11/19/18 18:31 - Notes Notes: GENERAL: Alert, interacts well. No acute distress. HEAD: Normocephalic, atraumatic. EYES: Pupils equal, round, and reactive to light. Extraocular movements intact. ENT: Oral mucosa moist, tongue midline. NECK: Full range of motion. Supple. Trachea midline. LUNGS: Clear to auscultation bilaterally, no wheezes, rales, or rhonchi. No respiratory distress. HEART: Regular rate and rhythm. No murmur ABDOMEN: Soft, positive Glover sign. Non-distended. Bowel sounds present in all 4 quadrants. No McBurney's point tenderness. EXTREMITIES: Moves all 4 extremities spontaneously. No edema, normal radial and dorsalis pedis pulses bilaterally. No cyanosis. BACK: no cervical, thoracic, lumbar midline tenderness. No saddle anesthesia, normal distal neurovascular exam. No CVA tenderness noted bilaterally NEUROLOGICAL: Alert and oriented x3. Normal speech. cranial nerves II through XII grossly intact PSYCH: Normal affect, normal mood. SKIN: Warm, dry, normal turgor. No rashes or lesions noted. Course - Re-evaluation Re-evalutation: Upon my reassessment of the patient she is sleeping in bed easily arousable on verbal stimuli. Patient states her pain is a lot better. Her labs show no signs of leukocytosis, no signs of anemia, no signs of electrolyte abnormalities, no signs of pancreatitis, no increase in her LFTs. Her urine shows no signs of infection. She was noted to be tachycardic upon arrival to the emergency department she has been fluid resuscitated. Her ultrasound shows cholelithiasis no signs of cholecystitis. Discussed with her need to follow-up outpatient for elective removal of her gallbladder. Patient voices understanding stable for discharge. - Vital Signs Vital signs: Temp Pulse Resp BP Pulse Ox 98.9 F 127 H 18 141/83 H 98 11/19/18 18:31 11/19/18 18:31 11/19/18 18:31 11/19/18 18:31 11/19/18 18:31 - Laboratory Result Diagrams: 11/19/18 20:35 11/19/18 20:35 Laboratory results interpreted by me: 11/19/18 11/19/18 20:35 23:52 Est GFR (Non-Af Amer) 57 L Urine Urobilinogen 2.0 H Discharge - Discharge Clinical Impression: Biliary colic symptom Cholelithiasis Qualifiers: Cholelithiasis location: other site Biliary obstruction: without biliary obstruction Qualified Code(s): K80.80 - Other cholelithiasis without obstruction Condition: Stable Disposition: HOME, SELF-CARE Instructions: Gallbladder Disease ([facility]), Antinausea Medication ([facility]) Additional Instructions: As we discussed you have been seen and treated in the emergency department for gallstones. Fortunately these gallstones are not infected at this time. Unfortunately that means no surgeon will come into the emergency department to emergently remove your gallbladder. You should follow-up outpatient. Phone numbers will be provided in this packet. I have also prescribed you antinausea medication. Take it as prescribed. Follow-up with your primary care provider in the next 24-48 hours return to the emergency room for any other concerning symptoms Prescriptions: Ondansetron [Zofran Odt 4 mg Tablet] 1 - 2 tab PO Q4H PRN #15 tab.rapdis PRN Reason: For Nausea/Vomiting Referrals: REINA GIBSON MD [Primary Care Provider] - Follow up as needed HOLA KUMARI MD [[facility]] - Follow up as needed
[2018-11-20 01:03] VITALS: BP 123/78
== END 2018-11-20 01:04 | disposition home or self-care (01) ==
LOC: ER 18:28
DX: K80.80 Other cholelithiasis without obstruction (principal); K83.9 Disease of biliary tract, unspecified; R11.2 Nausea with vomiting, unspecified; F17.200 Nicotine dependence, unspecified, uncomplicated; Z88.6 Allergy status to analgesic agent; Z91.040 Latex allergy status; Z90.710 Acquired absence of both cervix and uterus
CPT/HCPCS: 99284; 96361; 96374; 96375; 36415; 83690; 85025; 80053; 81001; 76705; 93976; J3010; J2765; J2405; J7120

== ENCOUNTER 2019-01-05 21:51 | Emergency (ER) | payer MEDICAID ==
--- NOTE | 2019-01-06 00:07 | ER Document Report ---
ED Medical Screen (RME) - General Chief Complaint: Headache Stated Complaint: HEADACHE Time Seen by Provider: 01/06/19 00:04 Primary Care Provider: REINA GIBSON MD [Primary Care Provider] - Follow up as needed Notes: 33-year-old female with epilepsy and migraines presents to the emergency department for atypical migraine and for vomiting. She said she vomited 2 times prior to coming here. She said her pain is behind her eyeballs that goes through to the back of her head. She said this is typical of previous migraines. She has not been treated for 1 or long time. So complains of double vision. She denies blurred vision. She is complaining of photophobia. She denies any numbness or tingling in any of her extremities, she denies any weakness or paralysis in any of her extremities. No meningismus. alert and oriented x3. TRAVEL OUTSIDE OF THE [place] IN LAST 30 DAYS: No - Related Data Allergies/Adverse Reactions: hydrocodone Allergy (Verified 11/02/18 09:36) ketorolac [From Toradol] Allergy (Verified 11/02/18 09:36) latex Allergy (Verified 11/02/18 09:36) topiramate [From Topamax] Allergy (Verified 11/02/18 09:36) Past Medical History - Past Medical History Cardiac Medical History: Denies: Hx Coronary Artery Disease, Hx Heart Attack, Hx Hypertension Pulmonary Medical History: Denies: Hx Asthma, Hx Bronchitis, Hx COPD, Hx Pneumonia Neurological Medical History: Reports: Hx Migraine, Hx Seizures - EPILEPSY, LAST ONE 3MONTHS AGO, seizures in sleep. Denies: Hx Cerebrovascular Accident Renal/ Medical History: Denies: Hx Peritoneal Dialysis Musculoskeltal Medical History: Denies Hx Arthritis Past Surgical History: Reports: Hx Gynecologic Surgery - partial hysterectomy, Hx Hysterectomy, Hx Tonsillectomy, Hx Tubal Ligation - Immunizations Immunizations up to date: Yes Hx Diphtheria, Pertussis, Tetanus Vaccination: Yes History of Influenza Vaccine for 06/2017 - 11/2017 Season: No Physical Exam - Vital signs Vitals: Temp Pulse Resp BP Pulse Ox 98.3 F 96 16 129/77 H 99 01/05/19 23:45 01/05/19 23:45 01/05/19 23:45 01/05/19 23:45 01/05/19 23:45 - Neurological Neuro grossly intact: Yes Cognition: Normal Orientation: AAOx4 Donte Coma Scale Eye Opening: Spontaneous Gilby Coma Scale Verbal: Oriented Gilby Coma Scale Motor: Obeys Commands Gilby Coma Scale Total: 15 Speech: Normal Cranial nerves: Normal Cerebellar coordination: Normal Additional motor exam normals: Equal manufacturing technologist, Dorsiflexion. No: Weakness, Hemiplegia Course - Vital Signs Vital signs: Temp Pulse Resp BP Pulse Ox 98.3 F 96 16 129/77 H 99 01/05/19 23:45 01/05/19 23:45 01/05/19 23:45 01/05/19 23:45 01/05/19 23:45 Doctor's Discharge - Discharge Referrals: REINA GIBSON MD [Primary Care Provider] - Follow up as needed
[2019-01-06] MEDS ORDERED: DIPHENHYDRAMINE HCL 50 MG/ML VIAL IV ONE (00:08)
[2019-01-06] MEDS ORDERED: METOCLOPRAMIDE HCL INJ/PF 10 MG/2 ML SDV IV ONE (00:08)
[2019-01-06] MEDS ORDERED: NORMAL SALINE 1000 ML 1,000 ML IV ONE (00:11)
[2019-01-06] MEDS ORDERED: KETOROLAC TROMETHAMINE INJ/PF 30 MG/1 ML SDV IV ONE (00:11)
[2019-01-06 02:46] LABS: ABSOLUTE EOSINOPHILS # (AUTO) 0.1 10^3/uL (0.0-0.6); ABSOLUTE LYMPHOCYTES (AUTO) 3.2 10^3/uL (0.5-4.7); ABSOLUTE MONOCYTES (AUTO) 0.4 10^3/uL (0.1-1.4); ABSOLUTE NEUT (AUTO) 2.1 10^3/uL (1.7-8.2); BASOPHILS % (AUTO) 0.3 % (0-2); EOSINOPHILS % (AUTO) 1.4 % (0-6); HEMATOCRIT 44.2 % (36.0-47.0); HEMOGLOBIN 15.2 g/dL (12.0-15.5); MEAN CORPUSCULAR HEMOGLOBIN 30.2 pg (27.0-33.4); MEAN CORPUSCULAR HGB CONC 34.4 g/dL (32.0-36.0); MEAN CORPUSCULAR VOLUME 88 fl (80-97); MONOCYTES % (AUTO) 6.6 % (3-13); PLATELET COUNT 323 10^3/uL (150-450); RED BLOOD COUNT 5.03 10^6/uL (3.72-5.28); RED CELL DISTRIBUTION WIDTH 13.3 % (11.5-14.0); SEGMENTED NEUTROPHILS % (AUTO) 35.7 % (42-78); TOTAL CELLS COUNTED % (AUTO) 100 %; WHITE BLOOD COUNT 5.8 10^3/uL (4.0-10.5)
[2019-01-06] MEDS ORDERED: DEXAMETHASONE SOD PHOS INJ 10 MG/1 ML VIAL IV ONE (05:09)
[2019-01-06] MEDS ORDERED: PROMETHAZINE HCL 25 MG TABLET PO ONE (05:09)
--- NOTE | 2019-01-06 06:09 | ER Document Report ---
ED Headache - General Chief Complaint: Headache Stated Complaint: HEADACHE Time Seen by Provider: 01/06/19 00:04 Primary Care Provider: GOLD CROW MD [NO LOCAL MD] - Follow up as needed REINA GIBSON MD [Primary Care Provider] - Follow up as needed TRAVEL OUTSIDE OF THE [place] IN LAST 30 DAYS: No - HPI Notes: Patient reports to the emergency department today for the chief complaint of a migraine headache. Patient states that she does have a history of migraines and seizures. Has not had a migraine in years and the last time she did she was given Demerol which helped with her pain. States she has a new neurologist Teodoro who has her on no seizure medication but has placed her on diazepam for her headaches which is 5 mg once daily at night. Patient has not tried any home medications for her headache. Last seizure unknown. - Related Data Allergies/Adverse Reactions: latex Allergy (Verified 11/02/18 09:36) topiramate [From Topamax] Allergy (Verified 11/02/18 09:36) Past Medical History - Social History Smoking Status: Unknown if Ever Smoked Family History: Reviewed & Not Pertinent Patient has suicidal ideation: No Patient has homicidal ideation: No - Past Medical History Cardiac Medical History: Denies: Hx Coronary Artery Disease, Hx Heart Attack, Hx Hypertension Pulmonary Medical History: Denies: Hx Asthma, Hx Bronchitis, Hx COPD, Hx Pneumonia Neurological Medical History: Reports: Hx Migraine, Hx Seizures - EPILEPSY, LAST ONE 3MONTHS AGO, seizures in sleep. Denies: Hx Cerebrovascular Accident Renal/ Medical History: Denies: Hx Peritoneal Dialysis Musculoskeletal Medical History: Denies Hx Arthritis Past Surgical History: Reports: Hx Gynecologic Surgery - partial hysterectomy, Hx Hysterectomy, Hx Tonsillectomy, Hx Tubal Ligation - Immunizations Immunizations up to date: Yes Hx Diphtheria, Pertussis, Tetanus Vaccination: Yes Review of Systems - Review of Systems Constitutional: No symptoms reported EENT: See HPI Cardiovascular: No symptoms reported Respiratory: No symptoms reported Gastrointestinal: See HPI Genitourinary: No symptoms reported Female Genitourinary: No symptoms reported Musculoskeletal: No symptoms reported Skin: No symptoms reported Hematologic/Lymphatic: No symptoms reported Neurological/Psychological: No symptoms reported Physical Exam - Vital signs Vitals: Temp Pulse Resp BP Pulse Ox 98.3 F 96 16 129/77 H 99 01/05/19 23:45 01/05/19 23:45 01/05/19 23:45 01/05/19 23:45 01/05/19 23:45 - Notes Notes: GENERAL: Sleeping, easy to arouse and Well-appearing, well-nourished and in no acute distress. HEAD: Atraumatic, normocephalic. ENT: TMs normal, nares patent, oropharynx clear without exudates. Moist mucous membranes. NECK: Normal range of motion, supple without lymphadenopathy or JVD. LUNGS: Breath sounds clear to auscultation bilaterally and equal. No wheezes rales or rhonchi. HEART: Regular rate and rhythm without murmurs, rubs or gallops. ABDOMEN: Soft, nontender, normoactive bowel sounds. No guarding, no rebound. No masses appreciated. EXTREMITIES: Normal range of motion, no pitting or edema. No clubbing or cyanosis. PSYCH: Normal mood, normal affect. SKIN: Warm, Dry, normal turgor, no rashes or lesions noted. Face symmetric. Tongue protrudes midline. Extraocular motions intact. Pupils are 2 mm and equally reactive. Normal speech, normal gait. 5 out of 5 strength in both the distal and proximal upper and lower extremities bilaterally. Sensation is grossly intact throughout. Finger to nose testing normal. Pronator drift normal. Course - Re-evaluation Re-evalutation: 01/06/19 Upon initial assessment patient had been seen in triage and medicated for her migraine headache. Patient had received 500 mL's of her liter bolus. She rep orts that her headache is better and now a 3 out of 5. Denies nausea or vomiting which has improved with medication. Denies photophobia, blurred vision, double vision. Speech is clear and appropriate and neuro exam is unremarkable. Patient to be medicated with PO Phenergan and Dexamethasone IV. Explained benefits of receiving medication with patient. She reports that she is thirsty and would like something to drink and eat. Patient states that she is ready to go home and will follow up with Dr. Crow. Discussed return precautions with patient such as severe headache, vomiting, fever, worse headache of her life, or any other worsening of symptoms. - Vital Signs Vital signs: Temp Pulse Resp BP Pulse Ox 97.6 F 91 15 122/81 100 01/06/19 04:13 01/06/19 04:13 01/06/19 04:13 01/06/19 04:13 01/06/19 04:13 - Laboratory Result Diagrams: 01/06/19 02:23 01/06/19 02:23 Laboratory results interpreted by me: 01/06/19 02:23 Seg Neutrophils % 35.7 L Lymphocytes % 56.0 H Discharge - Discharge Clinical Impression: Nausea Headache Qualifiers: Headache type: unspecified Headache chronicity pattern: acute headache Intractability: not intractable Qualified Code(s): R51 - Headache Condition: Stable Disposition: HOME, SELF-CARE Instructions: Antinausea Medication ([facility]), Use of Diphenhydramine, Headache ([facility]), Reglan ([facility]), Toradol Injection ([facility]) Additional Instructions: Today you were seen in the emergency department for headache. After receiving medication your symptoms have improved. Please follow-up with Dr. Nunez regarding your migraine/headache regimen. Please return to the emergency department for any return or worsening of symptoms to include severe headache, seizure, vomiting, slurred speech, or for any change in neurological symptoms. Headache The physician does not feel that the headache you are experiencing has a serious underlying cause. Most headaches are due to emotional stress, with resultant muscle tension (tension headache). Occasionally, headaches are secondary to changes in the blood vessels of the scalp (vascular headache and migraine headache). Sometimes, a headache is the first symptom of another developing illness, such as a viral infection. You have no evidence of stroke, bleeding, meningitis, or other serious cause of your headache. The treatment of headaches varies with the severity and cause of the pain. Not all headaches need pain shots. In fact, there is evidence that using narcotics for headaches may make them worse in the long run. The physician will determine the therapy that's in your best interest. If you develop a fever, if the headache is different from any you've previously experienced, or if the headache progressively worsens, then call your physician at once or go to the emergency room. Referrals: REINA GIBSON MD [Primary Care Provider] - Follow up as needed GOLD CROW MD [NO LOCAL MD] - Follow up as needed
[2019-01-06 06:41] VITALS: BP 127/82
== END 2019-01-06 06:30 | disposition home or self-care (01) ==
LOC: ER 21:51
DX: R51 Headache (principal); R11.0 Nausea; Z91.040 Latex allergy status; Z90.710 Acquired absence of both cervix and uterus
CPT/HCPCS: 99283; 96361; 96374; 96375; 36415; 85025; J1200; J1885; J2765; J3490; J7030; J1100

== ENCOUNTER 2019-04-27 15:35 | Emergency (ER) | payer MEDICAID ==
[2019-04-27 16:58] LABS: HEMATOCRIT 39.7 % (36.0-47.0); HEMOGLOBIN 13.7 g/dL (12.0-15.5); MEAN CORPUSCULAR HEMOGLOBIN 31.5 pg (27.0-33.4); MEAN CORPUSCULAR HGB CONC 34.5 g/dL (32.0-36.0); MEAN CORPUSCULAR VOLUME 91 fl (80-97); PLATELET COUNT 311 10^3/uL (150-450); RED BLOOD COUNT 4.34 10^6/uL (3.72-5.28); WHITE BLOOD COUNT 6.9 10^3/uL (4.0-10.5)
[2019-04-27 17:23] LABS: ABSOLUTE LYMPHOCYTES# (MANUAL) 3.2 10^3/uL (0.5-4.7); ABSOLUTE MONOCYTES # (MANUAL) 0.3 10^3/uL (0.1-1.4); BASOPHILS % (MANUAL) 1 % (0-2); EOSINOPHILS % (MANUAL) 2 % (0-6); LYMPHOCYTES % (MANUAL) 47 % (13-45); MONOCYTES % (MANUAL) 4 % (3-13); SEGMENTED NEUTROPHILS % (MAN) 46 % (42-78); TOTAL CELLS COUNTED 100
[2019-04-27 17:24] LABS: ANISOCYTOSIS SLIGHT; PLATELET CLUMPS PRESENT; PLATELET COMMENT ADEQUATE
--- NOTE | 2019-04-27 19:54 | ER Document Report ---
ED Medical Screen (RME) - General Chief Complaint: Abdominal Pain Stated Complaint: ABDOMINAL PAIN Time Seen by Provider: 04/27/19 17:13 Mode of Arrival: Ambulatory Information source: Patient Notes: Patient is a 34-year-old female presenting to the emergency department with chief complaint of right upper quadrant abdominal pain that started today around 2 PM. She reports associated nausea but denies vomiting or diarrhea. She reports she has known gallbladder disease. She denies any fever. Exam: Tenderness to palpation right upper quadrant. I have greeted and performed a rapid initial assessment of this patient. A comprehensive ED assessment and evaluation of the patient, analysis of test results and completion of the medical decision making process will be conducted by additional ED providers. I have specifically instructed the patient or family members with the patient to immediately return to any nursing staff should anything change in the patient's condition or with their chief complaint. This medical record was dictated with voice recognizing software. There may be grammatical, syntax errors that are unintended. TRAVEL OUTSIDE OF THE [place] IN LAST 30 DAYS: No - Related Data Allergies/Adverse Reactions: latex Allergy (Verified 11/02/18 09:36) topiramate [From Topamax] Allergy (Verified 11/02/18 09:36) Past Medical History - Past Medical History Cardiac Medical History: Reports: Hx Hypertension Denies: Hx Coronary Artery Disease, Hx Heart Attack Pulmonary Medical History: Denies: Hx Asthma, Hx Bronchitis, Hx COPD, Hx Pneumonia Neurological Medical History: Reports: Hx Migraine, Hx Seizures - EPILEPSY, LAST ONE 3MONTHS AGO, seizures in sleep. Denies: Hx Cerebrovascular Accident Renal/ Medical History: Denies: Hx Peritoneal Dialysis Musculoskeltal Medical History: Denies Hx Arthritis Past Surgical History: Reports: Hx Gynecologic Surgery - partial hysterectomy, Hx Hysterectomy, Hx Tonsillectomy, Hx Tubal Ligation - Immunizations Immunizations up to date: Yes Hx Diphtheria, Pertussis, Tetanus Vaccination: Yes History of Influenza Vaccine for 06/2017 - 11/2017 Season: No Physical Exam - Vital signs Vitals: Temp Pulse Resp BP Pulse Ox 98.5 F 79 20 140/93 H 100 04/27/19 15:52 04/27/19 15:52 04/27/19 15:52 04/27/19 15:52 04/27/19 15:52 Course - Vital Signs Vital signs: Temp Pulse Resp BP Pulse Ox 98.5 F 79 20 140/93 H 100 04/27/19 15:52 04/27/19 15:52 04/27/19 15:52 04/27/19 15:52 04/27/19 15:52 - Laboratory Result Diagrams: 04/27/19 16:35 04/27/19 16:35 Laboratory results interpreted by me: 04/27/19 16:35 Lymphocytes % (Manual) 47 H
[2019-04-27 19:55] LABS: ALBUMIN 3.9 g/dL (3.5-5.0); ALKALINE PHOSPHATASE 57 U/L (38-126); ANION GAP 7 (5-19); ASPARTATE AMINO TRANSFERASE 20 U/L (14-36); BILIRUBIN,DIRECT 0.2 mg/dL (0.0-0.4); BILIRUBIN,TOTAL 0.4 mg/dL (0.2-1.3); BLOOD UREA NITROGEN 10 mg/dL (7-20); CARBON DIOXIDE 24 mmol/L (22-30); CHLORIDE 107 mmol/L (98-107); GLUCOSE 78 mg/dL (75-110); POTASSIUM 3.9 mmol/L (3.6-5.0); TOTAL PROTEIN 6.8 g/dL (6.3-8.2)
[2019-04-27] MEDS ORDERED: ONDANSETRON HCL INJ/PF 4 MG/2 ML SDV IV ONE (20:10)
[2019-04-27] MEDS ORDERED: KETOROLAC TROMETHAMINE 60 MG/2 ML SDV IM ONE (20:38)
[2019-04-27] MEDS ORDERED: FENTANYL CITRATE INJ/PF 100 MCG/2 ML AMPUL IV ONE (21:26)
[2019-04-27] MEDS ORDERED: PROMETHAZINE HCL INJ 25 MG/1 ML VIAL IV ONE (21:26)
[2019-04-27] MEDS ORDERED: NORMAL SALINE 1000 ML 1,000 ML IV ONE (21:26)
--- NOTE | 2019-04-27 21:29 | RADIOLOGY REPORT (SQ) ---
EXAM DESCRIPTION: US ABDOMEN LIMITED COMPLETED DATE/TME: 04/27/2019 18:29 EXAM DESCRIPTION: CLINICAL HISTORY: RUQ pain COMPARISON: 11/19/2018 TECHNIQUE: Real-time sonographic images of the right upper abdomen were obtained using a curved multihertz transducer. FINDINGS: Pancreas: The visualized portions of the pancreas are unremarkable. Vascular: The visualized portions of the aorta and IVC are unremarkable. Liver: The liver has normal contour and increased echogenicity. Hepatopedal flow in the portal vein. Findings confirmed with color and spectral Doppler imaging. The common bile duct measures 0.4 cm. Gallbladder: Echogenic shadowing structures throughout the gallbladder lumen. Normal gallbladder wall thickness. Positive reported sonographic Glover sign. No pericholecystic fluid identified. Right Kidney: The right kidney measures 11.8 cm in length. No hydronephrosis, solid renal mass, or shadowing calculi. IMPRESSION: 1. Cholelithiasis with positive reported sonographic Glover sign. Next 2. Hepatic steatosis.
[2019-04-27 22:23] LABS: APPEARANCE,URINE CLOUDY; BILIRUBIN,URINE NEGATIVE (NEGATIVE); COLOR,URINE YELLOW; GLUCOSE, URINE NEGATIVE (NEGATIVE); KETONES,URINE NEGATIVE (NEGATIVE); LEUKOCYTE ESTERASE,URINE NEGATIVE (NEGATIVE); NITRITE,URINE NEGATIVE (NEGATIVE); PROTEIN,URINE NEGATIVE (NEGATIVE); URINE SPECIFIC GRAVITY 1.026
[2019-04-27] MEDS ORDERED: HYDROMORPHONE HCL INJ/PF 2 MG/ML AMPULE IV ONE (22:45)
--- NOTE | 2019-04-27 22:52 | ER Document Report ---
ED GI/ - General Chief Complaint: Abdominal Pain Stated Complaint: ABDOMINAL PAIN Time Seen by Provider: 04/27/19 17:13 Mode of Arrival: Ambulatory Notes: Patient is a 34-year-old female history of cholelithiasis presents to the emergency department for right upper quadrant pain starting around 1400 hrs. this afternoon. Patient states it is sharp in nature and also has some associated nausea. Patient's denying any dysuria or vaginal discharge. Patient states in October she was scheduled to have her gallbladder taken out by his surgical is Dr. Lamb. States anesthesiology refused to do the surgery based on patient's history of seizures. Patient states she does have an appointment on the outpatient with a surgical group 2 electively get her gallbladder out. Past medical history: Seizures Medications:Aption Allergies: Topamax Surgical history: Partial hysterectomy, tubal ligation. Patient does have port access in her right upper chest because "I have horrible veins." TRAVEL OUTSIDE OF THE [place] IN LAST 30 DAYS: No - Related Data Allergies/Adverse Reactions: latex Allergy (Verified 11/02/18 09:36) topiramate [From Topamax] Allergy (Verified 11/02/18 09:36) Past Medical History - General Information source: Patient - Social History Smoking Status: Never Smoker Family History: Reviewed & Not Pertinent Patient has suicidal ideation: No Patient has homicidal ideation: No - Past Medical History Cardiac Medical History: Reports: Hx Hypertension Denies: Hx Coronary Artery Disease, Hx Heart Attack Pulmonary Medical History: Denies: Hx Asthma, Hx Bronchitis, Hx COPD, Hx Pneumonia Neurological Medical History: Reports: Hx Migraine, Hx Seizures - EPILEPSY, LAST ONE 3MONTHS AGO, seizures in sleep. Denies: Hx Cerebrovascular Accident Renal/ Medical History: Denies: Hx Peritoneal Dialysis Musculoskeletal Medical History: Denies Hx Arthritis Past Surgical History: Reports: Hx Gynecologic Surgery - partial hysterectomy, Hx Hysterectomy, Hx Tonsillectomy, Hx Tubal Ligation - Immunizations Immunizations up to date: Yes Hx Diphtheria, Pertussis, Tetanus Vaccination: Yes Review of Systems - Review of Systems Constitutional: denies: Fever EENT: No symptoms reported Cardiovascular: No symptoms reported Respiratory: No symptoms reported Gastrointestinal: See HPI Genitourinary: See HPI Female Genitourinary: See HPI Musculoskeletal: No symptoms reported Skin: No symptoms reported Hematologic/Lymphatic: No symptoms reported Neurological/Psychological: No symptoms reported Physical Exam - Vital signs Vitals: Temp Pulse Resp BP Pulse Ox 98.5 F 79 20 140/93 H 100 04/27/19 15:52 04/27/19 15:52 04/27/19 15:52 04/27/19 15:52 04/27/19 15:52 - Notes Notes: GENERAL: Alert, interacts well. No acute distress. HEAD: Normocephalic, atraumatic. EYES: Pupils equal, round, and reactive to light. Extraocular movements intact. ENT: Oral mucosa moist, tongue midline. NECK: Full range of motion. Supple. Trachea midline. LUNGS: Clear to auscultation bilaterally, no wheezes, rales, or rhonchi. No respiratory distress. HEART: Regular rate and rhythm. No murmur ABDOMEN: Soft, positive Glover sign noted non-distended. Bowel sounds present in all 4 quadrants. No McBurney's point tenderness noted EXTREMITIES: Moves all 4 extremities spontaneously. No edema, normal radial and dorsalis pedis pulses bilaterally. No cyanosis. BACK: no cervical, thoracic, lumbar midline tenderness. No saddle anesthesia, normal distal neurovascular exam. No CVA tenderness noted bilaterally NEUROLOGICAL: Alert and oriented x3. Normal speech. cranial nerves II through XII grossly intact. PSYCH: Normal affect, normal mood. SKIN: Warm, dry, normal turgor. No rashes or lesions noted. Course - Re-evaluation Re-evalutation: 04/27/19 22:48 Laboratory 04/27/19 04/27/19 04/27/19 16:35 16:35 19:09 WBC 6.9 RBC 4.34 Hgb 13.7 Hct 39.7 MCV 91 MCH 31.5 MCHC 34.5 RDW 14.0 Plt Count 311 Total Counted 100 Seg Neutrophils % Not Reportable Seg Neuts % (Manual) 46 Lymphocytes % Not Reportable Lymphocytes % (Manual) 47 H Monocytes % Not Reportable Monocytes % (Manual) 4 Eosinophils % Not Reportable Eosinophils % (Manual) 2 Basophils % Not Reportable Basophils % (Manual) 1 Absolute Neutrophils Not Reportable Abs Neuts (Manual) 3.2 Absolute Lymphocytes Not Reportable Abs Lymphs (Manual) 3.2 Absolute Monocytes Not Reportable Abs Monocytes (Manual) 0.3 Absolute Eosinophils Not Reportable Absolute Eos (Manual) 0.1 Absolute Basophils Not Reportable Abs Basophils (Manual) 0.1 Clumped Platelets PRESENT Platelet Comment ADEQUATE Anisocytosis SLIGHT Sodium Cancelled 138.1 Potassium Cancelled 3.9 Chloride Cancelled 107 Carbon Dioxide Cancelled 24 Anion Gap Cancelled 7 BUN Cancelled 10 Creatinine Cancelled 0.84 Est GFR ( Amer) Cancelled > 60 Est GFR (Non-Af Amer) Cancelled > 60 Glucose Cancelled 78 Calcium Cancelled 9.0 Total Bilirubin Cancelled 0.4 Direct Bilirubin Cancelled 0.2 Neonat Total Bilirubin Cancelled Not Reportable Neonat Direct Bilirubin Cancelled Not Reportable Neonat Indirect Bili Cancelled Not Reportable AST Cancelled 20 ALT Cancelled 12 Alkaline Phosphatase Cancelled 57 Total Protein Cancelled 6.8 Albumin Cancelled 3.9 Lipase Cancelled 198.3 Serum HCG, Qual Urine Color Urine Appearance Urine pH Ur Specific [place] Urine Protein Urine Glucose (UA) Urine Ketones Urine Blood Urine Nitrite Urine Bilirubin Urine Urobilinogen Ur Leukocyte Esterase Urine WBC (Auto) Urine RBC (Auto) Squamous Epi Cells Auto Urine Mucus (Auto) Urine Ascorbic Acid 04/27/19 04/27/19 19:09 22:00 WBC RBC Hgb Hct MCV MCH MCHC RDW Plt Count Total Counted Seg Neutrophils % Seg Neuts % (Manual) Lymphocytes % Lymphocytes % (Manual) Monocytes % Monocytes % (Manual) Eosinophils % Eosinophils % (Manual) Basophils % Basophils % (Manual) Absolute Neutrophils Abs Neuts (Manual) Absolute Lymphocytes Abs Lymphs (Manual) Absolute Monocytes Abs Monocytes (Manual) Absolute Eosinophils Absolute Eos (Manual) Absolute Basophils Abs Basophils (Manual) Clumped Platelets Platelet Comment Anisocytosis Sodium Potassium Chloride Carbon Dioxide Anion Gap BUN Creatinine Est GFR ( Amer) Est GFR (Non-Af Amer) Glucose Calcium Total Bilirubin Direct Bilirubin Neonat Total Bilirubin Neonat Direct Bilirubin Neonat Indirect Bili AST ALT Alkaline Phosphatase Total Protein Albumin Lipase Serum HCG, Qual NEGATIVE Urine Color YELLOW Urine Appearance CLOUDY Urine pH 6.0 Ur Specific [place] 1.026 Urine Protein NEGATIVE Urine Glucose (UA) NEGATIVE Urine Ketones NEGATIVE Urine Blood NEGATIVE Urine Nitrite NEGATIVE Urine Bilirubin NEGATIVE Urine Urobilinogen 4.0 H Ur Leukocyte Esterase NEGATIVE Urine WBC (Auto) 5 Urine RBC (Auto) 28 Squamous Epi Cells Auto 12 Urine Mucus (Auto) MANY Urine Ascorbic Acid NEGATIVE Abdomen Ultrasound 04/27/19 18:29 IMPRESSION: 1. Cholelithiasis with positive reported sonographic Glover sign. Next 2. Hepatic steatosis. Patient's labs show no signs of leukocytosis, no signs of anemia, no signs of electrolyte abnormalities. Patient's liver function tests and lipase are within normal limits. Patient's urine shows no signs of infection. Patient initially did not want nursing staff to access her port. Patient is requesting pain medication, denies the want for nausea medication. Patient voices that Zofran and Reglan do not work for her. Patient was offered Toradol and she refused. I discussed with patient given fluids, nausea medication, pain medication through her port as she has been unable to urinate because she has not had anything to eat "all day." Patient voices understanding and is willing to have port accessed. Upon reevaluation of the patient she has on her cell phone with her son lying in bed with her. Patient is in no apparent distress. When patient sees me walk in the room she starts grimacing and holding her right upper quadrant. I discussed with her results of her ultrasound showing cholelithiasis, no cholecystitis, positive Glover sign. I discussed this case with surgical list Dr. Thomas. He states he is familiar with this case and knows that the anesthesiologist that is on is the same anesthesiologist that refused to do the surgery in October. I have again discussed this with the patient at bedside. Patient states she will follow-up outpatient on the . Patient was requesting further pain m anagement prior to discharge. Again upon my arrival into the patient's room she is texting on her phone in no apparent distress. Intermittently while talking to me she grabs her right upper quadrant. Patient is asking for food for herself and her son in the emergency room. At this time will discharge with return precautions and follow-up recommendations. Verbal discharge instructions given a the bedside and opportunity for questions given. Medication warnings reviewed. Patient is in agreement with this plan and has verbalized understanding of return precautions and the need for primary care follow-up in the next 24-72 hours. This medical record was dictated with voice recognizing software. There may be grammatical, syntax errors that are unintended. - Vital Signs Vital signs: Temp Pulse Resp BP Pulse Ox 98.5 F 79 20 140/93 H 100 04/27/19 15:52 04/27/19 15:52 04/27/19 15:52 04/27/19 15:52 04/27/19 15:52 - Laboratory Result Diagrams: 04/27/19 16:35 04/27/19 19:09 Laboratory results interpreted by me: 04/27/19 04/27/19 16:35 22:00 Lymphocytes % (Manual) 47 H Urine Urobilinogen 4.0 H Discharge - Discharge Clinical Impression: Cholelithiasis Qualifiers: Cholelithiasis location: other site Biliary obstruction: without biliary obstruction Qualified Code(s): K80.80 - Other cholelithiasis without obstruction Condition: Stable Disposition: HOME, SELF-CARE Instructions: Gallbladder Disease (COUNTS INCLUDE 234 BEDS AT THE [facility]) Additional Instructions: As we discussed you have been seen and treated in the emergency department for gallbladder stones. There is no sign of infection at this time. Please make s ure taking pain medication and nausea medication as prescribed. Please also make sure you follow-up with your primary care provider and the surgeon at your appointment on the . Please return to the emergency room for any further concerns. Prescriptions: Promethazine HCl [Phenergan 25 mg Tablet] 1 - 2 tab PO Q6H PRN #10 tablet PRN Reason: Forms: Return to Work Referrals: LUPE THOMAS MD [ACTIVE STAFF] - Follow up as needed
[2019-04-27] MEDS ORDERED: HYDROCODONE/ACETAMINOPHEN 5-325 MG (6 TAB/ER DISP) PO PRN (22:56)
[2019-04-27 23:56] VITALS: BP 134/96
== END 2019-04-27 23:55 | disposition home or self-care (01) ==
LOC: ER 15:35
DX: K80.20 Calculus of gallbladder without cholecystitis without obstruction (principal); K76.0 Fatty (change of) liver, not elsewhere classified; R10.11 Right upper quadrant pain; R11.0 Nausea; I10 Essential (primary) hypertension; G40.909 Epilepsy, unspecified, not intractable, without status epilepticus; Z79.899 Other long term (current) drug therapy; Z91.040 Latex allergy status; Z88.6 Allergy status to analgesic agent; Z98.51 Tubal ligation status; Z90.711 Acquired absence of uterus with remaining cervical stump
CPT/HCPCS: 99284; 96361; 96374; 96375; 36415; 83690; 84703; 85025; 80053; 81001; 76705; J3010; J1170; J2550; J7030; J1642

== ENCOUNTER 2019-07-07 08:10 | Emergency (ER) | payer MEDICAID ==
[2019-07-07 08:25] VITALS: BP 128/84
[2019-07-07] MEDS ORDERED: ONDANSETRON 4 MG TAB.RAPDIS PO ONE (08:29)
[2019-07-07] MEDS ORDERED: OXYCODONE-ACETAMINOPHEN 5-325 MG TABLET PO ONE (09:18)
[2019-07-07] MEDS ORDERED: PROMETHAZINE HCL 25 MG TABLET PO ONE (09:18)
--- NOTE | 2019-07-07 09:19 | ER Document Report ---
HPI - HPI Time Seen by Provider: 07/07/19 08:29 Pain Level: 5 Notes: Patient is a 34-year-old female presenting to the emergency department chief complaint of right knee pain. Patient reports on Sunday she was playing around with her son when she felt a pop in her knee. She reports no pain at that time but reports severe pain started this morning around 3 AM. She states the pain has been constant and has kept her up all night. She has not taken any medication for this. At the time of arrival she did have one episode of vomiting. She initially reported to the nurse that the pain was on the anterior knee over the kneecap but reports to me she has also had pain in her calf and behind the knee. She denies any known injury other than the pop that she heard 3 days ago. Denies any history of previous trauma to this area. - CONSTITUTIONAL Constitutional: DENIES: Fever, Chills - REPRODUCTIVE Reproductive: DENIES: : - MUSCULOSKELETAL Musculoskeletal: REPORTS: Extremity pain - right knee Past Medical History - General Information source: Patient - Social History Smoking Status: Current Every Day Smoker Chew tobacco use (# tins/day): No Frequency of alcohol use: None Drug Abuse: None Family History: Reviewed & Not Pertinent Patient has suicidal ideation: No Patient has homicidal ideation: No - Past Medical History Cardiac Medical History: Reports: Hx Hypertension Denies: Hx Coronary Artery Disease, Hx Heart Attack Pulmonary Medical History: Denies: Hx Asthma, Hx Bronchitis, Hx COPD, Hx Pneumonia Neurological Medical History: Reports: Hx Migraine, Hx Seizures - EPILEPSY, LAST ONE 3MONTHS AGO, seizures in sleep. Denies: Hx Cerebrovascular Accident Renal/ Medical History: Denies: Hx Peritoneal Dialysis Musculoskeletal Medical History: Denies Hx Arthritis Past Surgical History: Reports: Hx Gynecologic Surgery - partial hysterectomy, Hx Hysterectomy, Hx Tonsillectomy, Hx Tubal Ligation - Immunizations Immunizations up to date: Yes Hx Diphtheria, Pertussis, Tetanus Vaccination: Yes Vertical Provider Document - CONSTITUTIONAL Notes: PHYSICAL EXAMINATION: GENERAL: Well-appearing, well-nourished and in no acute distress. HEAD: Atraumatic, normocephalic. EYES: Pupils equal round extraocular movements intact, conjunctiva are normal. ENT: Nares patent NECK: Normal range of motion LUNGS: No respiratory distress Musculoskeletal: Limited range of motion to right knee due to pain, no erythema or ecchymosis noted but there is heat noted to the anterior knee. Slight swelling noted. Strong dorsalis pedis pulse and posterior tibialis pulse. NEUROLOGICAL: Normal speech. PSYCH: Normal mood, normal affect. SKIN: Warm, Dry, normal turgor, no rashes or lesions noted. - INFECTION CONTROL TRAVEL OUTSIDE OF THE [place] IN LAST 30 DAYS: No Course - Re-evaluation Re-evalutation: Knee X-Ray 07/07/19 00:00 IMPRESSION: NEGATIVE STUDY OF THE RIGHT KNEE. NO RADIOGRAPHIC EVIDENCE OF ACUTE INJURY. Patient is unofficially negative according to Doppler tech for DVT. Patient will be placed in Jonny wrap, given crutches and she will follow-up with orthopedic if not improving over the next 5 to 7 days. Patient verbalizes understanding and agreement with this plan. - Vital Signs Vital signs: Temp Pulse Resp BP Pulse Ox 98.3 F 106 H 16 128/84 H 99 07/07/19 08:19 07/07/19 08:19 07/07/19 08:19 07/07/19 08:19 07/07/19 08:19 Procedures - Immobilization Right knee Pre-Proc Neuro Vasc Exam: Normal Immobilizer type: Jonny wrap, Crutches Performed by: PCT Post-Proc Neuro Vasc Exam: Normal Discharge - Discharge Clinical Impression: Knee pain Qualifiers: Chronicity: acute Laterality: right Qualified Code(s): M25.561 - Pain in right knee Condition: Stable Disposition: HOME, SELF-CARE Instructions: Use of Crutches ([facility]), Suspected Internal Knee Injury ([facility]) Additional Instructions: Suspected Internal Knee Injury The examiner of your injured knee suspects an internal injury to the cartilage or internal ligaments. This must be further investigated by an database management system specialist. The knee should be protected, ice packed, and elevated while awaiting your follow-up exam by the orthopedist. If there is severe swelling, severe pain, or any new symptoms while awaiting your exam, you should call the orthopedist. (If he/she is unavailable, call us or return for re-examination.) Ice & Elevation Apply ice packs frequently against the painful area. Many different schedules are recommended, such as "20 minutes on, 20 minutes off" or "one hour ice, two hours rest." If you need to work, you may need to go longer between ice treatments. You should plan to have the area ice packed AT LEAST one-fourth of the time. The ice should be applied over the wrap, tape, or splint, or over a layer of cloth -- not directly against the skin. Some ice bags have a built-in cloth and can be put directly on the skin. Your injured part should be elevated as much as possible over the next 48 hours. Try to keep the injury above the level of the heart. Avoid use of the injured area. Elevation and rest will decrease the swelling. Please use the knee jonny wrap and crutches. Your x-ray was negative today which means there is no fracture or dislocation of the bones of the knee. The venous Doppler ultrasound also showed no evidence of a deep vein thrombosis. It is possible that you have an internal knee injury such as a ligament injury. If your pain does not subside over the next 3 to 5 days please call orthopedics for follow-up. In the meanwhile please take ibuprofen 600 mg every 6 hours. Ice and elevate as outlined above. Take the narcotic pain medication for severe pain only. Prescriptions: Hydrocodone Bit/Acetaminophen [Hydrocodon-Acetaminophen 5-325] 1 each PO Q6H #12 tablet Referrals: RUTH AGUILAR FNP-C [Primary Care Provider] - Follow up as needed
--- NOTE | 2019-07-07 10:38 | RADIOLOGY REPORT (SQ) ---
EXAM DESCRIPTION: KNEE RIGHT 3 VIEWS COMPLETED DATE/TIME: 07/07/2019 8:49 am REASON FOR STUDY: bone tenderness COMPARISON: None. NUMBER OF VIEWS: Three views. TECHNIQUE: AP, lateral, and sunrise patella radiographic images acquired of the right knee. LIMITATIONS: None. FINDINGS: MINERALIZATION: Normal. BONES: No acute fracture or dislocation. No worrisome bone lesions. JOINT: No effusion. SOFT TISSUES: No soft tissue swelling. No radio-opaque foreign body. OTHER: No other significant finding. IMPRESSION: NEGATIVE STUDY OF THE RIGHT KNEE. NO RADIOGRAPHIC EVIDENCE OF ACUTE INJURY. TECHNICAL DOCUMENTATION: JOB ID: [id number] [employer]- All Rights Reserved Reading location - IP/workstation name: [email or web address]
--- NOTE | 2019-07-07 14:03 | XCELERA REPORT ---
[address] [place] [facility] [id number] Lower Extremity Venous Evaluation Procedure: Color flow and duplex imaging of the veins of the right lower extremity as well as the left Common Femoral vein. Right Sided Venous Evaluation Normal vessel filling wall to wall, compression and augmentation as well as Colour flow down to the infrageniculate veins. Left Sided Venous Evaluation The left common femoral vein is fully compressible. Spontaneous and phasic flow is present in the left common femoral vein. Interpretation Summary No duplex evidence of DVT or obstruction in the right lower extremity nor in the left Common Femoral vein. Name: SVITLANA SCHNEIDER Age: 34 yrs Gender: Female : 1985 Patient Status: Emergency Patient Location: ER Study Date: 07/07/2019 09:42 AM Reason For Study: RLE pain/erythema/swelling Ordering Physician: SHOBHA DOE Performed By: Selene Ragsdale : SHOBHA DOE > Jai Lynn
== END 2019-07-07 11:25 | disposition home or self-care (01) ==
LOC: ER 08:10
DX: M25.561 Pain in right knee (principal); R11.10 Vomiting, unspecified; M79.669 Pain in unspecified lower leg; R60.9 Edema, unspecified; F17.200 Nicotine dependence, unspecified, uncomplicated; I10 Essential (primary) hypertension
CPT/HCPCS: 93971 ×2; 73562; S0119; J3490; 99284

== ENCOUNTER 2019-10-10 15:29 | Emergency (ER) | payer MEDICAID ==
[2019-10-10] MEDS ORDERED: DIPHENHYDRAMINE HCL 50 MG/ML VIAL IV ONE (16:01)
[2019-10-10] MEDS ORDERED: PROCHLORPERAZINE EDISYLATE INJ 10 MG/2 ML VIAL IV ONE (16:01)
[2019-10-10] MEDS ORDERED: NORMAL SALINE 1000 ML 1,000 ML IV ONE (16:01)
--- NOTE | 2019-10-10 16:02 | ER Document Report ---
ED Medical Screen (RME) - General Chief Complaint: Headache Stated Complaint: HEADACHE Time Seen by Provider: 10/10/19 15:56 Primary Care Provider: RUTH AGUILAR FNP-C [Primary Care Provider] - Follow up as needed Information source: Patient Notes: Patient presents stating that she has had a migraine headache for the past 2 days. Patient states that today she did have a seizure. Patient states she has a history of previous seizures although is not on any antiepileptic medication. Patient reports some light sensitivity and nausea. No vomiting. Patient seizure was not witnessed. Patient was not incontinent of urine and did not bite her tongue. I have greeted and performed a rapid initial assessment of this patient. A comprehensive ED assessment and evaluation of the patient, analysis of test results and completion of the medical decision making process will be conducted by additional ED providers. TRAVEL OUTSIDE OF THE [place] IN LAST 30 DAYS: No - Related Data Allergies/Adverse Reactions: latex Allergy (Verified 10/10/19 15:56) topiramate [From Topamax] Allergy (Verified 10/10/19 15:56) Past Medical History - Past Medical History Cardiac Medical History: Reports: Hx Hypertension Denies: Hx Coronary Artery Disease, Hx Heart Attack Pulmonary Medical History: Denies: Hx Asthma, Hx Bronchitis, Hx COPD, Hx Pneumonia Neurological Medical History: Reports: Hx Migraine, Hx Seizures - EPILEPSY, LAST ONE 3MONTHS AGO, seizures in sleep. Denies: Hx Cerebrovascular Accident Renal/ Medical History: Denies: Hx Peritoneal Dialysis Musculoskeltal Medical History: Denies Hx Arthritis Past Surgical History: Reports: Hx Gynecologic Surgery - partial hysterectomy, Hx Hysterectomy, Hx Tonsillectomy, Hx Tubal Ligation - Immunizations Immunizations up to date: Yes Hx Diphtheria, Pertussis, Tetanus Vaccination: Yes Physical Exam - Vital signs Vitals: Temp Pulse Resp BP Pulse Ox 98.4 F 101 H 18 131/93 H 100 10/10/19 15:38 10/10/19 15:38 10/10/19 15:38 10/10/19 15:38 10/10/19 15:38 - General General appearance: Appears well, Alert In distress: None - Neurological Neuro grossly intact: Yes Cognition: Normal Orientation: AAOx4 [place] Coma Scale Eye Opening: Spontaneous [place] Coma Scale Verbal: Oriented Donte Coma Scale Motor: Obeys Commands [place] Coma Scale Total: 15 Course - Vital Signs Vital signs: Temp Pulse Resp BP Pulse Ox 98.4 F 101 H 18 131/93 H 100 10/10/19 15:38 10/10/19 15:38 10/10/19 15:38 10/10/19 15:38 10/10/19 15:38 Doctor's Discharge - Discharge Referrals: RUTH AGUILAR, BENJAMIN-C [Primary Care Provider] - Follow up as needed
[2019-10-10 17:03] LABS: ABSOLUTE BASOPHILS # (AUTO) 0.1 10^3/uL (0.0-0.2); ABSOLUTE LYMPHOCYTES (AUTO) 1.4 10^3/uL (0.5-4.7); ABSOLUTE MONOCYTES (AUTO) 0.2 10^3/uL (0.1-1.4); ABSOLUTE NEUT (AUTO) 1.9 10^3/uL (1.7-8.2); BASOPHILS % (AUTO) 1.4 % (0-2); EOSINOPHILS % (AUTO) 1.2 % (0-6); HEMATOCRIT 43.1 % (36.0-47.0); HEMOGLOBIN 14.8 g/dL (12.0-15.5); LYMPHOCYTES % (AUTO) 39.3 % (13-45); MEAN CORPUSCULAR HEMOGLOBIN 31.4 pg (27.0-33.4); MEAN CORPUSCULAR HGB CONC 34.4 g/dL (32.0-36.0); MEAN CORPUSCULAR VOLUME 91 fl (80-97); MONOCYTES % (AUTO) 6.4 % (3-13); PLATELET COUNT 288 10^3/uL (150-450); RED BLOOD COUNT 4.73 10^6/uL (3.72-5.28); RED CELL DISTRIBUTION WIDTH 13.9 % (11.5-14.0); SEGMENTED NEUTROPHILS % (AUTO) 51.7 % (42-78); TOTAL CELLS COUNTED % (AUTO) 100 %; WHITE BLOOD COUNT 3.7 10^3/uL (4.0-10.5)
[2019-10-10 17:53] LABS: ANION GAP 11 (5-19); BLOOD UREA NITROGEN 15 mg/dL (7-20); CALCIUM 9.5 mg/dL (8.4-10.2); CARBON DIOXIDE 26 mmol/L (22-30); CHLORIDE 102 mmol/L (98-107); CREATINE KINASE 92 U/L (30-135); GLUCOSE 101 mg/dL (75-110); POTASSIUM 4.2 mmol/L (3.6-5.0)
--- NOTE | 2019-10-10 20:38 | ER Document Report ---
ED General - General Chief Complaint: Headache Stated Complaint: HEADACHE Time Seen by Provider: 10/10/19 15:56 Primary Care Provider: RUTH AGUILAR FNP-C [NURSE PRACTITIONER] - Follow up as needed Information source: Patient TRAVEL OUTSIDE OF THE [place] IN LAST 30 DAYS: No - HPI Onset: Other - 2 days ago Onset/Duration: Sudden Quality of pain: Achy Severity: Moderate Pain Level: 2 Associated symptoms: Headache, Nausea. denies: Allergy/hay fever, Body/muscle aches, Chest pain, Chills, Nonproductive cough, Productive cough, Diarrhea, Fever, Hoarseness, Hurts to breath, Leg swelling, Vomiting, Sinus pain/drainage, Shortness of breath, Slow to respond, Sore throat, Sweating, Weakness Exacerbated by: Movement Relieved by: Remaining still Similar symptoms previously: Yes Recently seen / treated by doctor: Yes - Related Data Allergies/Adverse Reactions: latex Allergy (Verified 10/10/19 15:56) topiramate [From Topamax] Allergy (Verified 10/10/19 15:56) Home Medications: bood pressure medications cant recall names Past Medical History - General Information source: Patient - Social History Smoking Status: Current Every Day Smoker Cigarette use (# per day): Yes Chew tobacco use (# tins/day): No Smoking Education Provided: Yes Frequency of alcohol use: None Drug Abuse: None Lives with: Family - neice in room and sisters steam train driver Family History: Reviewed & Not Pertinent Patient has suicidal ideation: No Patient has homicidal ideation: No - Past Medical History Cardiac Medical History: Reports: Hx Hypertension Denies: Hx Coronary Artery Disease, Hx Heart Attack Pulmonary Medical History: Denies: Hx Asthma, Hx Bronchitis, Hx COPD, Hx Pneumonia Neurological Medical History: Reports: Hx Migraine, Hx Seizures - EPILEPSY, LAST ONE 3MONTHS AGO, seizures in sleep. Denies: Hx Cerebrovascular Accident Renal/ Medical History: Denies: Hx Peritoneal Dialysis Musculoskeletal Medical History: Denies Hx Arthritis Past Surgical History: Reports: Hx Gynecologic Surgery - partial hysterectomy, Hx Hysterectomy, Hx Tonsillectomy, Hx Tubal Ligation - Immunizations Immunizations up to date: Yes Hx Diphtheria, Pertussis, Tetanus Vaccination: Yes Review of Systems - Review of Systems Constitutional: No symptoms reported EENT: Vertigo, Other - photo phobia Cardiovascular: No symptoms reported Respiratory: No symptoms reported Gastrointestinal: No symptoms reported Genitourinary: No symptoms reported Musculoskeletal: No symptoms reported Skin: No symptoms reported Hematologic/Lymphatic: No symptoms reported Neurological/Psychological: Weakness, Headaches. denies: Confusion, Dementia, Depression, Anxiety, Hallucinations, Sensory change, Homicidal ideation, Gait changes, Loss of power, Paralysis, Seizure, Lost consciousness, Speech impairment, Numbness, Suicidal ideation, Tingling, Tremor Physical Exam - Vital signs Vitals: Temp Pulse Resp BP Pulse Ox 98.4 F 101 H 18 131/93 H 100 10/10/19 15:38 10/10/19 15:38 10/10/19 15:38 10/10/19 15:38 10/10/19 15:38 Interpretation: Hypertensive, Tachycardic - HEENT Head: Normocephalic Eyes: Normal Conjunctiva: Injected Extraocular movements intact: Yes Eyelashes: Normal Pupils: PERRL Sinus: Normal Nasal: Normal Mouth/Lips: Normal - Respiratory Respiratory status: No respiratory distress Chest status: Nontender Breath sounds: Normal Chest palpation: Normal - Cardiovascular Rhythm: Regular Heart sounds: Normal auscultation Murmur: No Friction rub: No Lorin's crunch: No - Abdominal Inspection: Normal Distension: No distension Bowel sounds: Normal Tenderness: Nontender - Extremities General upper extremity: Normal inspection General lower extremity: Normal inspection - Neurological Neuro grossly intact: Yes Cognition: Normal Orientation: AAOx4 [place] Coma Scale Eye Opening: Spontaneous Donte Coma Scale Verbal: Oriented [place] Coma Scale Motor: Obeys Commands [place]arthen Coma Scale Total: 15 Speech: Normal Cranial nerves: Normal - Psychological Associated symptoms: Normal affect - Skin Skin Temperature: Warm Skin Moisture: Dry Course - Vital Signs Vital signs: Temp Pulse Resp BP Pulse Ox 98.4 F 101 H 18 131/93 H 100 10/10/19 15:38 10/10/19 15:38 10/10/19 15:38 10/10/19 15:38 10/10/19 15:38 - Laboratory Result Diagrams: 10/10/19 16:36 10/10/19 16:36 Laboratory results interpreted by me: 10/10/19 10/10/19 16:36 16:36 WBC 3.7 L Creatinine 1.38 H Est GFR ( Amer) 53 L Est GFR (MDRD) Non-Af 44 L - Diagnostic Test Radiology reviewed: Reports reviewed Critical Care Note - Critical Care Note Total time excluding time spent on procedures (mins): 90 Comments: Advised patient of findings at 2337 Discharge - Discharge Clinical Impression: Migraine, Leucopenia Condition: Good Disposition: HOME, SELF-CARE Additional Instructions: Follow-up with personal doctor this week return to ER as needed take medicines as directed; sleep in dark room for the next 5 hours; avoid driving or dangerous machinery for the next 10 hours Prescriptions: Cyproheptadine HCl [Periactin 4 Mg Tablet] 4 mg PO HSP PRN #30 tablet PRN Reason: Referrals: RUTH AGUILAR FNP-C [NURSE PRACTITIONER] - Follow up as needed
[2019-10-10] MEDS ORDERED: LORAZEPAM INJ 2 MG/1 ML VIAL IV ONE (20:42)
[2019-10-10] MEDS ORDERED: FENTANYL CITRATE INJ/PF 100 MCG/2 ML AMPUL IV ONE (20:42)
--- NOTE | 2019-10-10 22:26 | RADIOLOGY REPORT (SQ) ---
CT HEAD WITHOUT IV CONTRAST CLINICAL STATEMENT: torrez seizure TECHNIQUE: Axial CT images from skull base to vertex without IV contrast. This exam was performed according to our departmental dose optimization program, and includes the following measures where applicable: automated exposure control, adjustment of the mAs and/or kVp according to patient size and/or exam, and an iterative reconstruction algorithm. COMPARISON: Unenhanced CT scan of the brain 10/30/2018 FINDINGS: There is no acute intracranial hemorrhage, mass, mass effect or abnormal extra-axial fluid collection. No evidence of an acute territorial infarct is identified. The ventricles are normal. Calvaria: The skull base and calvaria demonstrate no abnormality. Paranasal sinuses: Visualized portions of the orbits and paranasal sinuses are unremarkable. skull base: Unremarkable IMPRESSION: No acute process. No significant interval change.
[2019-10-10 22:46] LABS: A TYPE INFLUENZA AG NEGATIVE (NEGATIVE); B INFLUENZA AG NEGATIVE (NEGATIVE)
[2019-10-11 00:05] VITALS: BP 108/83
== END 2019-10-11 00:04 | disposition home or self-care (01) ==
LOC: ER 15:29
DX: G43.909 Migraine, unspecified, not intractable, without status migrainosus (principal); D72.819 Decreased white blood cell count, unspecified; R11.0 Nausea; I10 Essential (primary) hypertension; Z79.899 Other long term (current) drug therapy; F17.210 Nicotine dependence, cigarettes, uncomplicated
CPT/HCPCS: 99285; 96361; 96374; 96375; 36415; 82550; 85025; 80048; 87804; 70450; J1200; J3010; J2060; J0780; J7030

== ENCOUNTER 2019-10-13 19:31 | Emergency (ER) | payer MEDICAID ==
[2019-10-13] MEDS ORDERED: KETOROLAC TROMETHAMINE INJ/PF 30 MG/1 ML SDV IM ONE (20:00)
--- NOTE | 2019-10-13 20:08 | ER Document Report ---
ED Medical Screen (RME) - General Chief Complaint: Chest Pain Stated Complaint: CHEST PAIN Time Seen by Provider: 10/13/19 19:56 Primary Care Provider: EDITH HUYNH MD [Primary Care Provider] - Follow up as needed Notes: Patient is a 34-year-old female presents emergency department with a chief complaint of chest pain. Patient reports she has had intermittent chest pain in the center of her chest for about 3 days. Patient reports that over the past hours could become more constant. Patient denies recent cold symptoms such as cough, runny nose or fever. Patient does have a history of a partial hysterectomy. Patient denies a history of blood clot, shortness of breath, acid reflux type symptoms, recent surgery or other long car rides. Patient reports that the chest pain does not get better or worse with anything. TRAVEL OUTSIDE OF THE [place] IN LAST 30 DAYS: No - Related Data Allergies/Adverse Reactions: latex Allergy (Verified 10/13/19 19:53) topiramate [From Topamax] Allergy (Verified 10/13/19 19:53) Past Medical History - Past Medical History Cardiac Medical History: Reports: Hx Hypertension Denies: Hx Coronary Artery Disease, Hx Heart Attack Pulmonary Medical History: Denies: Hx Asthma, Hx Bronchitis, Hx COPD, Hx Pneumonia Neurological Medical History: Reports: Hx Migraine, Hx Seizures - EPILEPSY, LAST ONE 3MONTHS AGO, seizures in sleep. Denies: Hx Cerebrovascular Accident Renal/ Medical History: Denies: Hx Peritoneal Dialysis Musculoskeltal Medical History: Denies Hx Arthritis Past Surgical History: Reports: Hx Gynecologic Surgery - partial hysterectomy, Hx Hysterectomy, Hx Tonsillectomy, Hx Tubal Ligation - Immunizations Immunizations up to date: Yes Hx Diphtheria, Pertussis, Tetanus Vaccination: Yes Physical Exam - Vital signs Vitals: Temp Pulse Resp BP Pulse Ox 98.7 F 98 16 151/90 H 100 10/13/19 19:35 10/13/19 19:35 10/13/19 19:35 10/13/19 19:35 10/13/19 19:35 - Cardiovascular Rhythm: Regular Heart sounds: Normal auscultation, S1 appreciated, S2 appreciated Course - Re-evaluation Re-evalutation: 10/13/19 20:08 I have greeted and performed a rapid initial assessment of this patient. A comprehensive ED assessment and evaluation of the patient, analysis of test results and completion of the medical decision making process will be conducted by additional ED providers. - Vital Signs Vital signs: Temp Pulse Resp BP Pulse Ox 98.7 F 98 16 151/90 H 100 10/13/19 19:35 10/13/19 19:35 10/13/19 19:35 10/13/19 19:35 10/13/19 19:35 Doctor's Discharge - Discharge Referrals: EDITH HUYNH MD [Primary Care Provider] - Follow up as needed
[2019-10-13 20:31] LABS: ABSOLUTE BASOPHILS # (AUTO) 0.1 10^3/uL (0.0-0.2); ABSOLUTE EOSINOPHILS # (AUTO) 0.1 10^3/uL (0.0-0.6); ABSOLUTE LYMPHOCYTES (AUTO) 2.7 10^3/uL (0.5-4.7); ABSOLUTE MONOCYTES (AUTO) 0.4 10^3/uL (0.1-1.4); ABSOLUTE NEUT (AUTO) 2.6 10^3/uL (1.7-8.2); BASOPHILS % (AUTO) 0.9 % (0-2); EOSINOPHILS % (AUTO) 1.7 % (0-6); HEMATOCRIT 39.9 % (36.0-47.0); HEMOGLOBIN 13.8 g/dL (12.0-15.5); LYMPHOCYTES % (AUTO) 46.2 % (13-45); MEAN CORPUSCULAR HEMOGLOBIN 31.7 pg (27.0-33.4); MEAN CORPUSCULAR HGB CONC 34.6 g/dL (32.0-36.0); MEAN CORPUSCULAR VOLUME 92 fl (80-97); MONOCYTES % (AUTO) 6.7 % (3-13); PLATELET COUNT 263 10^3/uL (150-450); RED BLOOD COUNT 4.36 10^6/uL (3.72-5.28); RED CELL DISTRIBUTION WIDTH 13.7 % (11.5-14.0); SEGMENTED NEUTROPHILS % (AUTO) 44.5 % (42-78); TOTAL CELLS COUNTED % (AUTO) 100 %; WHITE BLOOD COUNT 5.8 10^3/uL (4.0-10.5)
--- NOTE | 2019-10-13 20:42 | RADIOLOGY REPORT (SQ) ---
EXAM DESCRIPTION: XR CHEST 2 VIEWS COMPLETED DATE/TME: 10/13/2019 19:59 CLINICAL HISTORY: 34 years, Female, chest pain COMPARISON: None. NUMBER OF VIEWS: 2 TECHNIQUE: LIMITATIONS: None. FINDINGS: Cardiomediastinal silhouette is normal. Lungs are grossly clear. Right-sided power injectable port catheter tip is within the SVC. IMPRESSION: No active intrathoracic disease copyright 2010 [employer]- All Rights Reserved
--- NOTE | 2019-10-13 20:43 | EKG REPORT ---
SEVERITY:- ABNORMAL ECG - SINUS RHYTHM NONSPECIFIC INTRAVENTRICULAR CONDUCTION DELAY : Confirmed by: Sharron Rao 13-Oct-2019 20:42:08
[2019-10-13 20:50] LABS: ALBUMIN 4.1 g/dL (3.5-5.0); ALKALINE PHOSPHATASE 56 U/L (38-126); ANION GAP 10 (5-19); ASPARTATE AMINO TRANSFERASE 16 U/L (14-36); BILIRUBIN,DIRECT 0.2 mg/dL (0.0-0.4); BILIRUBIN,TOTAL 0.2 mg/dL (0.2-1.3); BLOOD UREA NITROGEN 17 mg/dL (7-20); CALCIUM 9.3 mg/dL (8.4-10.2); CARBON DIOXIDE 25 mmol/L (22-30); CHLORIDE 103 mmol/L (98-107); GLUCOSE 95 mg/dL (75-110); TOTAL PROTEIN 7.5 g/dL (6.3-8.2)
[2019-10-13] MEDS ORDERED: FAMOTIDINE 20 MG TABLET PO ONE (21:14)
[2019-10-13] MEDS ORDERED: SUCRALFATE 1 GM TABLET PO ONE (21:14)
--- NOTE | 2019-10-13 21:17 | ER Document Report ---
ED Cardiac - General Chief Complaint: Chest Pain Stated Complaint: CHEST PAIN Time Seen by Provider: 10/13/19 19:56 Primary Care Provider: RUTH AGUILAR FNP-C [NURSE PRACTITIONER] - Follow up tomorrow Notes: Patient is a 34-year-old female who presents emergency department with a chief complaint of chest pain. She states that her pain started 3 days ago. States it is in the middle of her chest. Denies any nausea or vomiting. Patient is unsure if she has GERD. Patient has a past history of hypertension, but does not take any medications. Patient is supposed to be on hydrochlorothiazide, but has ran out. She has been out of her medication for the past 3 months. TRAVEL OUTSIDE OF THE [place] IN LAST 30 DAYS: No - Related Data Allergies/Adverse Reactions: latex Allergy (Verified 10/13/19 19:53) topiramate [From Topamax] Allergy (Verified 10/13/19 19:53) Past Medical History - Social History Smoking Status: Current Every Day Smoker Family History: Reviewed & Not Pertinent Patient has suicidal ideation: No Patient has homicidal ideation: No - Past Medical History Cardiac Medical History: Reports: Hx Hypertension Denies: Hx Coronary Artery Disease, Hx Heart Attack Pulmonary Medical History: Denies: Hx Asthma, Hx Bronchitis, Hx COPD, Hx Pneumonia Neurological Medical History: Reports: Hx Migraine, Hx Seizures - EPILEPSY, LAST ONE 3MONTHS AGO, seizures in sleep. Denies: Hx Cerebrovascular Accident Renal/ Medical History: Denies: Hx Peritoneal Dialysis Musculoskeletal Medical History: Denies Hx Arthritis Past Surgical History: Reports: Hx Gynecologic Surgery - partial hysterectomy, Hx Hysterectomy, Hx Tonsillectomy, Hx Tubal Ligation - Immunizations Immunizations up to date: Yes Hx Diphtheria, Pertussis, Tetanus Vaccination: Yes Review of Systems - Review of Systems Notes: REVIEW OF SYSTEMS: CONSTITUTIONAL : Denies recent illness. Denies recent unintentional weight loss. Denies fever, chills, or sweats. EENT: Denies eye, ear, throat, or mouth pain, discharge, or symptoms. Denies nasal or sinus congestion. CARDIOVASCULAR: See HPI. RESPIRATORY: Denies shortness of breath, cough, congestion, difficulty breathing, or wheezing. GASTROINTESTINAL: Denies nausea, vomiting, and diarrhea. Denies abdominal pain. Denies constipation. GENITOURINARY: Denies difficulty urinating, burning, blood in urine, urgency or frequency. MUSCULOSKELETAL: Denies neck and back pain. Denies joint pain or swelling. SKIN: Denies rash, itchiness, or lesions HEMATOLOGIC : Denies easy bruising or bleeding. LYMPHATIC: Denies swollen, painful, enlarged glands. NEUROLOGICAL: Denies no numbness or tingling denies weakness. Denies headache. Denies altered mental status. Denies alteration in speech. PSYCHIATRIC: Denies stress, anxiety, alteration in sleep patterns, or de pression. All other systems reviewed and negative. Physical Exam - Vital signs Vitals: Temp Pulse Resp BP Pulse Ox 98.7 F 98 16 151/90 H 100 10/13/19 19:35 10/13/19 19:35 10/13/19 19:35 10/13/19 19:35 10/13/19 19:35 - Notes Notes: PHYSICAL EXAMINATION: GENERAL: Appears well, healthy, well-nourished, no acute distress. HEAD: Normocephalic, atraumatic. EYES: PERRL, conjunctiva normal, all extraocular movements intact, sclera nonicteric ENT: Moist mucous membranes. NECK: Supple, no noticeable swelling, redness, rash. Normal range of motion. LUNGS: Equal breath sounds bilaterally and clear to auscultation. No wheezes rales or rhonchi. CARDIOVASCULAR: S1-S2, regular rate, regular rhythm. Radial pulses 2+, normal. ABDOMEN: Normoactive bowel sounds. Soft, nontender, no guarding, no rebound tenderness, and no masses palpated. EXTREMITIES: Normal strength and range of motion, no pitting or edema. No cyanosis. NEUROLOGICAL: Moves all extremities upon command. Strength 5/5 in all extremities. PSYCH: Normal mood, normal affect. SKIN: Warm, dry. No rash, lesions, ulcerations noted. Normal skin turgor. Course - Re-evaluation Re-evalutation: 10/13/19 22:36 Patient's hematology and chemistries are unremarkable. Her troponin is also unremarkable. He her troponin is also normal. Her CK is normal. Patient states that she does not feel any different. I am unsure as to what the cause of her chest pain. I rechecked her abdomen, as she has history of cholelithia sis. Negative Glover's sign. I advised her to follow-up on that also. I have a very low suspicion for a pulmonary emboli, as the patient is not tachycardic and her oxygen saturation is 100% on room air. Patient is not on control. Denies any recent surgery or history of a DVT. And is PERC negative. Patient will follow-up with her primary care provider and possibly cardiology. Follow-u p precautions were given. Verbal discharge instructions were given to the patient. They verbalized understanding. They are stable for discharge. - Vital Signs Vital signs: Temp Pulse Resp BP Pulse Ox 98.7 F 98 16 151/90 H 100 10/13/19 19:35 10/13/19 19:35 10/13/19 19:35 10/13/19 19:35 10/13/19 19:35 - Laboratory Result Diagrams: 10/13/19 20:19 10/13/19 20:19 Laboratory results interpreted by me: 10/13/19 20:19 Lymph % (Auto) 46.2 H - EKG Interpretation by Me Additional EKG results interpreted by me: 10/13/19 22:47 Sinus rhythm. Rate 97. AZ 192; QRS 112; QT 368; QTc 468. No ST elevations or depressions noted. No acute change from previous EKG done on 10/30/2018. Discharge - Discharge Clinical Impression: Chest pain Qualifiers: Chest pain type: unspecified Qualified Code(s): R07.9 - Chest pain, unspecified Condition: Stable Disposition: HOME, SELF-CARE Additional Instructions: You were seen today for chest pain. The exact cause of your pain is unclear. However, based on your cardiac enzyme testing, chest x-ray, and EKG it does not appear that it is from an immediately life-threatening cause at this time. Although your testing here is normal is critical that you follow-up with your primary care physician for continued evaluation of this chest pain and possible stress testing. I recommended you see your physician within the next 24-48 hours to be evaluated for consideration of a stress test. Please return to emergency department immediately if you have worsening of your chest pain, shortness of breath, vomiting, become unable to exert yourself due to pain or difficulty breathing, you pass out, or have any pain that radiates into your arms, jaw, or back. Please also return if you have any additional symptoms that are concerning to you. You may want to follow-up with the surgeon to have your gallbladder rechecked. Referrals: RUTH AGUILAR, BENJAMIN-Cameron [NURSE PRACTITIONER] - Follow up tomorrow
[2019-10-13 23:00] VITALS: BP 176/82
== END 2019-10-13 22:59 | disposition home or self-care (01) ==
LOC: ER 19:31
DX: R07.9 Chest pain, unspecified (principal); F17.200 Nicotine dependence, unspecified, uncomplicated; I10 Essential (primary) hypertension; Z91.040 Latex allergy status; Z90.710 Acquired absence of both cervix and uterus
CPT/HCPCS: 93005; 99284; 96372; 36415; 82550; 85025; 80053; 84484; 71046; 93010; J3490 ×2; J1885

== ENCOUNTER → 2019-11-05 | Outpatient (CLI) | payer MEDICAID ==
--- NOTE | 2019-11-05 15:22 | RADIOLOGY REPORT (SQ) ---
EXAM DESCRIPTION: MRI RT LOWER JOINT WITHOUT COMPLETED DATE/TIME: 11/05/2019 1:30 pm REASON FOR STUDY: M25.561 PAIN IN RIGHT KNEE M25.561 PAIN IN RIGHT KNEE COMPARISON: None. TECHNIQUE: Rightknee images acquired and stored on PACS. Multiplanar images include fat sensitive s equences as T1, water sensitive sequences as FST2 or STIR, cartilage sensitive sequences as FSPD, and gradient echo sequences. LIMITATIONS: None. FINDINGS: JOINT AND BURSAE: No effusion. BONE CORTEX AND MARROW: No alteration of signal to suggest marrow replacement. No worrisome bone lesi ons. No occult fracture. ACL: Intact. No degeneration or ganglion cyst. PCL: Intact. MCL: Intact. No periligamentous edema or fluid. LCL: Intact. No periligamentous edema or fluid. MEDIAL MENISCUS: No tears. No abnormal signal. LATERAL MENISCUS: No tears. No abnormal signal. MEDIAL COMPARTMENT: Cartilage preserved. No bone bruises or reactive marrow edema. No osteophytes. LATERAL COMPARTMENT: Cartilage preserved. No bone bruises or reactive marrow edema. No osteophytes. PATELLA: Patella looks relatively normally located. Minimal scarring in the suprapatellar fat pad. No focal chondral lesions or evidence of fracture. EXTENSOR MECHANISM: Intact. Quadriceps and patella tendons normal. SOFT TISSUES: Adjacent muscles and subcutaneous tissues normal. Normal flow void in popliteal artery and vein. OTHER: No other significant finding. IMPRESSION: 1. Allowing for mild scar in the suprapatellar fat pad, normal appearance of the knee. No significan t internal derangement. Patella is in normal location and without any chondral lesions. TECHNICAL DOCUMENTATION: JOB ID: [id number] 2010 [employer]- All Rights Reserved Reading location - IP/workstation name: [employer]LECT[employer]IN [employer]OL [email or web address]
== END ==
LOC: RAD 12:50
PROVIDERS: ATTEND Orthopaedic Surgery
DX: M25.561 Pain in right knee (principal)

== ENCOUNTER 2020-02-08 18:46 | Emergency (ER) | payer MEDICAID ==
[2020-02-08] MEDS ORDERED: NORMAL SALINE 1000 ML 1,000 ML IV ONE (19:34)
--- NOTE | 2020-02-08 19:36 | ER Document Report ---
ED Medical Screen (RME) - General Chief Complaint: Headache Stated Complaint: HEADACHE Time Seen by Provider: 02/08/20 19:26 Notes: Patient is a 34-year-old female with a history of migraine headaches and epilepsy who presents emergency department with a chief complaint of a migraine headache. Patient states that she has had her migraine headache for the past 4 days. She is taking her migraine medication, but states it is not helping. St ates that her migraine is behind her eyes. States that she feels nauseous. Exam: Alert and oriented. I have greeted and performed a rapid initial assessment of this patient. A comprehensive ED assessment and evaluation of the patient, analysis of test results and completion of medical decision making process will be conducted by an additional ED providers. TRAVEL OUTSIDE OF THE [place] IN LAST 30 DAYS: No - Related Data Allergies/Adverse Reactions: latex Allergy (Verified 10/13/19 19:53) topiramate [From Topamax] Allergy (Verified 10/13/19 19:53) Home Medications: KEPPRA. CYCLOBENZAPRINE. HCTZ Past Medical History - Past Medical History Cardiac Medical History: Reports: Hx Hypertension Denies: Hx Coronary Artery Disease, Hx Heart Attack Pulmonary Medical History: Denies: Hx Asthma, Hx Bronchitis, Hx COPD, Hx Pneumonia Neurological Medical History: Reports: Hx Migraine, Hx Seizures - EPILEPSY, LAST ONE 3MONTHS AGO, seizures in sleep. Denies: Hx Cerebrovascular Accident Renal/ Medical History: Denies: Hx Peritoneal Dialysis Musculoskeltal Medical History: Denies Hx Arthritis Past Surgical History: Reports: Hx Gynecologic Surgery - partial hysterectomy, Hx Hysterectomy, Hx Tonsillectomy, Hx Tubal Ligation - Immunizations Immunizations up to date: Yes Hx Diphtheria, Pertussis, Tetanus Vaccination: Yes Physical Exam - Vital signs Vitals: Temp Pulse Resp BP Pulse Ox 98.7 F 101 H 16 137/81 H 98 02/08/20 18:50 02/08/20 18:50 02/08/20 18:50 02/08/20 18:50 02/08/20 18:50 Course - Vital Signs Vital signs: Temp Pulse Resp BP Pulse Ox 98.7 F 101 H 16 137/81 H 98 02/08/20 19:28 02/08/20 18:50 02/08/20 18:50 02/08/20 18:50 02/08/20 18:50
[2020-02-08] MEDS ORDERED: FENTANYL CITRATE INJ/PF 100 MCG/2 ML AMPUL IV ONE (20:27)
[2020-02-08] MEDS ORDERED: METOCLOPRAMIDE HCL INJ/PF 10 MG/2 ML SDV IV ONE (20:27)
[2020-02-08] MEDS ORDERED: DIPHENHYDRAMINE HCL 50 MG/ML VIAL IV ONE (20:27)
[2020-02-08 22:57] LABS: APPEARANCE,URINE SLIGHTLY-CLOUDY; BILIRUBIN,URINE NEGATIVE (NEGATIVE); COLOR,URINE YELLOW; GLUCOSE, URINE NEGATIVE (NEGATIVE); KETONES,URINE NEGATIVE (NEGATIVE); LEUKOCYTE ESTERASE,URINE NEGATIVE (NEGATIVE); NITRITE,URINE NEGATIVE (NEGATIVE); PROTEIN,URINE NEGATIVE (NEGATIVE); URINE SPECIFIC GRAVITY 1.023; UROBILINOGEN,URINE NEGATIVE mg/dL (<2.0)
[2020-02-09 01:05] VITALS: BP 117/87
--- NOTE | 2020-02-09 01:06 | ER Document Report ---
Entered by KOLE CHAVEZ SCRIBE 02/08/202018 Acting as scribe for:LONI JACKSON DO ED General - General Chief Complaint: Headache Stated Complaint: HEADACHE Time Seen by Provider: 02/08/20 19:26 Information source: Patient Notes: This 34 year old female patient presents to the emergency department today with complaints of a migraine. Patient states she has had a migraine the past x3 days intermittently. Patient states the pain is behind her eyes and was the worst today, which is why she is visiting the ED. Patient states she has been nauseous, but denies vomiting. Patient states she has a history of migraines. TRAVEL OUTSIDE OF THE [place] IN LAST 30 DAYS: No - Related Data Allergies/Adverse Reactions: latex Allergy (Verified 10/13/19 19:53) topiramate [From Topamax] Allergy (Verified 10/13/19 19:53) Home Medications: KEPPRA. CYCLOBENZAPRINE. HCTZ Past Medical History - General Information source: Patient - Social History Smoking Status: Current Every Day Smoker Cigarette use (# per day): Yes Family History: Reviewed & Not Pertinent Patient has homicidal ideation: No - Past Medical History Cardiac Medical History: Reports: Hx Hypertension Neurological Medical History: Reports: Hx Migraine, Hx Seizures - EPILEPSY, LAST ONE 3MONTHS AGO, seizures in sleep Past Surgical History: Reports: Hx Hysterectomy, Hx Tonsillectomy, Hx Tubal Ligation - Immunizations Immunizations up to date: Yes Hx Diphtheria, Pertussis, Tetanus Vaccination: Yes Review of Systems - Review of Systems Constitutional: No symptoms reported EENT: No symptoms reported Cardiovascular: No symptoms reported Respiratory: No symptoms reported Gastrointestinal: See HPI, Nausea. denies: Vomiting Genitourinary: No symptoms reported Female Genitourinary: No symptoms reported Musculoskeletal: No symptoms reported Skin: No symptoms reported Hematologic/Lymphatic: No symptoms reported Neurological/Psychological: See HPI, Other - migraine -: Yes All other systems reviewed and negative Physical Exam - Vital signs Vitals: Temp Pulse Resp BP Pulse Ox 98.7 F 101 H 16 137/81 H 98 02/08/20 18:50 02/08/20 18:50 02/08/20 18:50 02/08/20 18:50 02/08/20 18:50 - General General appearance: Appears well, Alert - HEENT Head: Normocephalic, Atraumatic Eyes: Normal Pupils: PERRL - Respiratory Respiratory status: No respiratory distress Chest status: Nontender Breath sounds: Normal Chest palpation: Normal - Cardiovascular Rhythm: Regular Heart sounds: Normal auscultation Murmur: No - Abdominal Inspection: Normal Distension: No distension Bowel sounds: Normal Tenderness: Nontender - Extremities General upper extremity: Normal inspection. No: Edema General lower extremity: Normal inspection. No: Edema - Neurological Neuro grossly intact: Yes Cognition: Normal Orientation: AAOx4 - Psychological Associated symptoms: Normal affect, Normal mood - Skin Skin Temperature: Warm Skin Moisture: Dry Skin Color: Normal Course - Re-evaluation Re-evalutation: 02/08/20 23:33 MDM 34 year old female with h/o headaches and this one is typical for her. No fever, no tick bite and no rash. This headache worsened over days. She feels improved here after treatment. - Vital Signs Vital signs: Temp Pulse Resp BP Pulse Ox 98.0 F 82 16 117/87 H 100 02/09/20 01:04 02/09/20 01:04 02/09/20 01:04 02/09/20 01:04 02/09/20 01:04 - Laboratory Laboratory results interpreted by me: reviewed Discharge - Discharge Clinical Impression: Headache Qualifiers: Headache type: unspecified Headache chronicity pattern: acute headache Int ractability: not intractable Qualified Code(s): R51 - Headache Condition: Stable Disposition: HOME, SELF-CARE Instructions: Antinausea Medication ([facility]), Use of Diphenhydramine, Family Physicians / Practices, Headache ([facility]), Reglan ([facility]) Additional Instructions: Rest, plenty of fluids, see your doctor in follow up. Please return here for vomiting or inability to tolerate your medicines or other concerns. Prescriptions: Promethazine HCl [Phenergan 25 mg Tablet] 25 mg PO TID #8 tablet I personally performed the services described in the documentation, reviewed and edited the documentation which was dictated to the scribe in my presence, and it accurately records my words and actions.
== END 2020-02-09 01:06 | disposition home or self-care (01) ==
LOC: ER 18:46
DX: R51 Headache (principal); R11.0 Nausea; Z79.899 Other long term (current) drug therapy; Z88.8 Allergy status to other drugs, medicaments and biological substances; F17.210 Nicotine dependence, cigarettes, uncomplicated
CPT/HCPCS: 36591; 99283; 96361; 96374; 96375; 81001; J1200; J3010; J2765; J7030; J1642

== ENCOUNTER 2020-03-29 13:58 | Emergency (ER) | payer MEDICAID ==
[2020-03-29 14:10] VITALS: BP 148/87
[2020-03-29] MEDS ORDERED: HYDROCODONE/ACETAMINOPHEN 5-325 MG TABLET PO ONE (14:33)
--- NOTE | 2020-03-29 14:36 | ER Document Report ---
HPI - HPI Time Seen by Provider: 03/29/20 14:24 Pain Level: 5 Context: Patient is a 34-year-old female who presents emergency department with a chief complaint of knee pain. Patient reports that years ago she was in physical education class and her knee popped out of place. Patient reports since then she has intermittent right knee pain. Patient reports she has seen orthopedics in the past and was told that there was nothing wrong. Patient reports 4 days ago developing right anterior and medial knee pain. Patient denies injury or fall. Patient reports she has been taking Tylenol, last dose being 11 AM without any relief. - REPRODUCTIVE Reproductive: DENIES: : - MUSCULOSKELETAL Musculoskeletal: REPORTS: Extremity pain Past Medical History - General Information source: Patient - Social History Smoking Status: Current Every Day Smoker Frequency of alcohol use: None Drug Abuse: None Lives with: Alone Family History: Reviewed & Not Pertinent - Past Medical History Cardiac Medical History: Reports: Hx Hypertension Denies: Hx Coronary Artery Disease, Hx Heart Attack Pulmonary Medical History: Reports: None Denies: Hx Asthma, Hx Bronchitis, Hx COPD, Hx Pneumonia EENT Medical History: Reports: None Neurological Medical History: Reports: Hx Migraine, Hx Seizures - EPILEPSY, LAST ONE 3MONTHS AGO, seizures in sleep. Denies: Hx Cerebrovascular Accident Endocrine Medical History: Reports: None Renal/ Medical History: Reports: None. Denies: Hx Peritoneal Dialysis Malignancy Medical History: Reports: None GI Medical History: Reports: None Musculoskeletal Medical History: Reports None, Denies Hx Arthritis Skin Medical History: Reports None Psychiatric Medical History: Reports: None Traumatic Medical History: Reports: None Infectious Medical History: Reports: None Past Surgical History: Reports: Hx Gynecologic Surgery - partial hysterectomy, Hx Hysterectomy, Hx Tonsillectomy, Hx Tubal Ligation - Immunizations Immunizations up to date: Yes Hx Diphtheria, Pertussis, Tetanus Vaccination: Yes Vertical Provider Document - CONSTITUTIONAL Agree With Documented VS: Yes Exam Limitations: No Limitations General Appearance: No Apparent Distress - INFECTION CONTROL TRAVEL OUTSIDE OF THE [place] IN LAST 30 DAYS: No - HEENT HEENT: Atraumatic, Normal ENT Exam, Normocephalic, PERRLA - NECK Neck: Normal Inspection - RESPIRATORY Respiratory: Breath Sounds Normal, No Respiratory Distress - CARDIOVASCULAR Cardiovascular: Regular Rate, Regular Rhythm - GI/ABDOMEN Gastrointestinal: Abdomen Soft, Abdomen Non-Tender, Normal Bowel Sounds - BACK Back: Normal Inspection - MUSCULOSKELETAL/EXTREMETIES Notes: Tenderness noted to the anterior medial aspect of the right knee. There is no ecchymosis, edema, erythema. Patient is a +2 normal palpable popliteal pulse. Patient is able to ambulate with a small limp. No obvious deformity. Patella tendon intact with mild tenderness to palpation. - NEURO Level of Consciousness: Awake, Alert, Appropriate - DERM Integumentary: Warm, Dry, No Rash Course - Re-evaluation Re-evalutation: 03/29/20 14:35 Patient complains of 5 out of 5 pain. We will give the patient 1 [place] while here in the emergency department. Will obtain an x-ray. Ultimately I did speak with the patient and informed her that I will place her on anti-inflammatories and refer her to orthopedic if she continues to have the right knee pain. 03/29/20 14:52 MRI noted from October 2019 that was [address] Huynh, with orthopedics, did not show any acute abnormality of the right knee. - Vital Signs Vital signs: Temp Pulse Resp BP Pulse Ox 99.3 F 89 18 148/87 H 100 03/29/20 14:08 03/29/20 14:30 03/29/20 14:30 03/29/20 14:08 03/29/20 14:30 - Diagnostic Test Radiology reviewed: Reports reviewed Radiology results interpreted by me: 03/29/20 15:44 Knee X-Ray 03/29/20 14:31 IMPRESSION: NEGATIVE STUDY OF THE RIGHT KNEE. NO EXPLANATION FOR PAIN. Discharge - Discharge Clinical Impression: Right knee pain Qualifiers: Chronicity: acute Qualified Code(s): M25.561 - Pain in right knee Condition: Stable Disposition: HOME, SELF-CARE Additional Instructions: *Today are seen emergency department for right knee pain. The x-ray did not show any acute abnormality. Do recommend following up with orthopedics if you continue to have pain. Over the next few days please rest, elevate and, use ice. Please use anti-inflammatories as prescribed. Anti-Inflammatory Medication You have received a prescription for an antiinflammatory agent. This is an excellent, safe drug for pain control. In addition, it has potent antiinflammatory effects which are beneficial, especially in the treatment of injuries, arthritis, or tendonitis. It's best to take this medicine with food. Persons with ulcer disease or allergy to aspirin should notify their physician of this before taking this drug. Take the medication exactly as prescribed. Don't take additional doses unless instructed to do so by your doctor. If you develop wheezing, shortness of breath, hives, faintness, stomach pain, vomiting, or dark black stools, return for re-evaluation at once. Prescriptions: Meloxicam [Mobic 7.5 mg Tablet] 7.5 mg PO BID PRN #14 tablet PRN Reason: Referrals: EDITH HUYNH MD [ACTIVE STAFF] - Follow up as needed
--- NOTE | 2020-03-29 15:40 | RADIOLOGY REPORT (SQ) ---
EXAM DESCRIPTION: KNEE RIGHT 4 VIEWS IMAGES COMPLETED DATE/TIME: 03/29/2020 3:29 pm REASON FOR STUDY: right anterior knee pain x 4 days COMPARISON: 2018 NUMBER OF VIEWS: Four views. TECHNIQUE: AP, lateral, and both oblique radiographic images acquired of the right knee. LIMITATIONS: None. FINDINGS: MINERALIZATION: Normal. BONES: No acute fracture or dislocation. No worrisome bone lesions. No significant osteophytes. JOINT: No effusion. No chondrocalcinosis. OTHER: No other significant finding. IMPRESSION: NEGATIVE STUDY OF THE RIGHT KNEE. NO EXPLANATION FOR PAIN. TECHNICAL DOCUMENTATION: JOB ID: [id number] 2010 [employer]- All Rights Reserved Reading location - IP/workstation name: [email or web address]
== END 2020-03-29 15:58 | disposition home or self-care (01) ==
LOC: ER 13:58
DX: M25.561 Pain in right knee (principal); F17.200 Nicotine dependence, unspecified, uncomplicated; I10 Essential (primary) hypertension
CPT/HCPCS: 99283

== ENCOUNTER 2020-05-14 20:48 | Emergency (ER) | payer MEDICAID ==
[2020-05-14] MEDS ORDERED: NORMAL SALINE 1000 ML 1,000 ML IV ONE (22:24)
[2020-05-14] MEDS ORDERED: ONDANSETRON HCL INJ/PF 4 MG/2 ML SDV IV ONE (22:24)
[2020-05-14] MEDS ORDERED: DIPHENHYDRAMINE HCL 50 MG/ML VIAL IV ONE (22:25)
[2020-05-14] MEDS ORDERED: KETOROLAC TROMETHAMINE INJ/PF 30 MG/1 ML SDV IV ONE (22:25)
[2020-05-14 23:06] LABS: ALKALINE PHOSPHATASE 42 U/L (38-126); ANION GAP 5 (5-19); ASPARTATE AMINO TRANSFERASE 17 U/L (14-36); BILIRUBIN,DIRECT 0.3 mg/dL (0.0-0.4); BILIRUBIN,TOTAL 0.3 mg/dL (0.2-1.3); BLOOD UREA NITROGEN 8 mg/dL (7-20); CALCIUM 7.6 mg/dL (8.4-10.2); CARBON DIOXIDE 23 mmol/L (22-30); CHLORIDE 111 mmol/L (98-107); GLUCOSE 81 mg/dL (75-110); POTASSIUM 3.4 mmol/L (3.6-5.0); TOTAL PROTEIN 5.8 g/dL (6.3-8.2)
[2020-05-14 23:07] LABS: ABSOLUTE EOSINOPHILS # (AUTO) 0.1 10^3/uL (0.0-0.6); ABSOLUTE LYMPHOCYTES (AUTO) 3.5 10^3/uL (0.5-4.7); ABSOLUTE MONOCYTES (AUTO) 0.4 10^3/uL (0.1-1.4); ABSOLUTE NEUT (AUTO) 2.3 10^3/uL (1.7-8.2); BASOPHILS % (AUTO) 0.6 % (0-2); EOSINOPHILS % (AUTO) 1.6 % (0-6); HEMOGLOBIN 13.3 g/dL (12.0-15.5); LYMPHOCYTES % (AUTO) 55.1 % (13-45); MEAN CORPUSCULAR HEMOGLOBIN 31.7 pg (27.0-33.4); MEAN CORPUSCULAR HGB CONC 34.9 g/dL (32.0-36.0); MEAN CORPUSCULAR VOLUME 91 fl (80-97); MONOCYTES % (AUTO) 5.9 % (3-13); PLATELET COUNT 241 10^3/uL (150-450); RED BLOOD COUNT 4.18 10^6/uL (3.72-5.28); RED CELL DISTRIBUTION WIDTH 14.1 % (11.5-14.0); SEGMENTED NEUTROPHILS % (AUTO) 36.8 % (42-78); TOTAL CELLS COUNTED % (AUTO) 100 %; WHITE BLOOD COUNT 6.4 10^3/uL (4.0-10.5)
[2020-05-14 23:08] LABS: PROTHROMBIN TIME 13.4 SEC (11.4-15.4)
[2020-05-14 23:27] LABS: APPEARANCE,URINE SLIGHTLY-CLOUDY; BILIRUBIN,URINE NEGATIVE (NEGATIVE); COLOR,URINE YELLOW; GLUCOSE, URINE NEGATIVE (NEGATIVE); KETONES,URINE NEGATIVE (NEGATIVE); LEUKOCYTE ESTERASE,URINE NEGATIVE (NEGATIVE); NITRITE,URINE NEGATIVE (NEGATIVE); PROTEIN,URINE NEGATIVE (NEGATIVE); URINE SPECIFIC GRAVITY 1.019; UROBILINOGEN,URINE NEGATIVE mg/dL (<2.0)
--- NOTE | 2020-05-14 23:34 | EKG REPORT ---
SEVERITY:- NORMAL ECG - SINUS RHYTHM : Confirmed by: Colleen Marinelli MD 14-May-2020 23:33:45
[2020-05-14 23:48] LABS: URINE AMPHETAMINES SCREEN NEGATIVE; URINE BENZODIAZEPINES SCREEN NEGATIVE; URINE COCAINE SCREEN NEGATIVE; URINE MARIJUANA (THC) SCREEN NEGATIVE; URINE METHADONE SCREEN NEGATIVE; URINE PHENCYCLIDINE SCREEN NEGATIVE
[2020-05-14 23:54] LABS: URINE BARBITURATES SCREEN UNCONFIRMED POSITIVE
[2020-05-15] MEDS ORDERED: HALOPERIDOL LACTATE INJ 5 MG/1 ML VIAL IM ONE (00:08)
--- NOTE | 2020-05-15 00:48 | ER Document Report ---
ED General - General Chief Complaint: Probable Seizure Stated Complaint: SEIZURES Time Seen by Provider: 05/14/20 22:06 Primary Care Provider: [facility] [Provider Group] - Follow up as needed [facility] [Provider Group] - Follow up as needed Mode of Arrival: Ambulatory Information source: Patient Notes: Patient is a 35-year-old female comes emergency room complaining of having a seizure. Patient has a significant past medical history pertinent for hypertension, epilepsy, and migraine headaches. Patient states that when she wakes up in the morning with a headache and does not go away on her Fioricet she knows she is going to have a seizure. She states she has been doing very well with her seizure history she has not had one for the past 5 months. Patient states that the headaches are bilateral temporal areas. This is her normal presentation of the headaches with the history of seizures. She does see a neurologist but has not seen one in about 4 months. Patient denies any loss of urine or stool with the seizure. She takes Keppra thousand milligrams twice a day on a regular basis and states she has not missed that dosage. Patient was sitting when she had her seizure and did not have any injuries. TRAVEL OUTSIDE OF THE [place] IN LAST 30 DAYS: No - HPI Onset: Just prior to arrival Onset/Duration: Sudden Quality of pain: Achy, Throbbing Severity: Moderate Pain Level: 3 Associated symptoms: denies: Chest pain, Hurts to breath, Leg swelling, Nausea, Vomiting, Shortness of breath Exacerbated by: Denies Relieved by: Denies Similar symptoms previously: Yes Recently seen / treated by doctor: Yes - Related Data Allergies/Adverse Reactions: latex Allergy (Verified 10/13/19 19:53) topiramate [From Topamax] Allergy (Verified 10/13/19 19:53) Past Medical History - General Information source: Patient - Social History Smoking Status: Never Smoker Frequency of alcohol use: None Drug Abuse: None Lives with: Family Family History: Reviewed & Not Pertinent Patient has homicidal ideation: No - Past Medical History Cardiac Medical History: Reports: Hx Hypertension Denies: Hx Coronary Artery Disease, Hx Heart Attack Pulmonary Medical History: Denies: Hx Asthma, Hx Bronchitis, Hx COPD, Hx Pneumonia Neurological Medical History: Reports: Hx Migraine, Hx Seizures - EPILEPSY, LAST ONE 3MONTHS AGO, seizures in sleep. Denies: Hx Cerebrovascular Accident Renal/ Medical History: Denies: Hx Peritoneal Dialysis Musculoskeletal Medical History: Denies Hx Arthritis Past Surgical History: Reports: Hx Gynecologic Surgery - partial hysterectomy, Hx Hysterectomy, Hx Tonsillectomy, Hx Tubal Ligation - Immunizations Immunizations up to date: Yes Hx Diphtheria, Pertussis, Tetanus Vaccination: Yes Review of Systems - Review of Systems Constitutional: See HPI. denies: Chills, Fever, Weakness EENT: No symptoms reported Cardiovascular: No symptoms reported Respiratory: See HPI. denies: Cough, Hurts to breathe, Short of breath, Wheezing Gastrointestinal: See HPI. denies: Diarrhea, Nausea, Vomiting Genitourinary: No symptoms reported. denies: Burning, Dysuria, Frequency, Urgency Female Genitourinary: No symptoms reported. denies: Vaginal bleeding Musculoskeletal: No symptoms reported Skin: No symptoms reported Hematologic/Lymphatic: No symptoms reported Neurological/Psychological: See HPI, Seizure, Headaches -: Yes All other systems reviewed and negative Physical Exam - Vital signs Vitals: Temp 99.3 F 05/14/20 21:29 Interpretation: Other - Patient's vital signs have not captured when I meet this dictation. However when I walked into patient's room and she was sleeping and resting comfortably her heart rate was 87 her saturation was 99% on room air and her blood pressure was 112/73. - Notes Notes: PHYSICAL EXAMINATION: GENERAL: Patient is a well-nourished well-developed 35-year-old obese female that is in no apparent distress on physical exam tonight. Actually patient was sound asleep and on me entering the room vital signs were normal at that time. Upon waking patient up she is guarded in with having a headache and some anxiety HEAD: Atraumatic, normocephalic. EYES: Pupils equal round and reactive to light, extraocular movements intact, conjunctiva are normal. ENT: Nares patent, oropharynx clear without exudates. Moist mucous membranes. NECK: Normal range of motion, supple without lymphadenopathy LUNGS: Breath sounds clear to auscultation bilaterally and equal. No wheezes rales or rhonchi. HEART: Regular rate and rhythm without murmurs ABDOMEN: Soft, nontender, nondistended abdomen. No guarding, no rebound. No masses appreciated. Female : deferred Musculoskeletal: Normal range of motion, no pitting or edema. No cyanosis. NEUROLOGICAL: Normal speech, normal gait. Normal sensory, motor exams PSYCH: Normal mood, normal affect. SKIN: Warm, Dry, normal turgor, no rashes or lesions noted. Course - Re-evaluation Re-evalutation: 05/15/20 00:50 Patient's course was uneventful. She received some fluids and nausea medication but still stated that her headache was there. Given that this headache as she indicated to me is similar to all her past headaches I decided just to give her a Toradol with Benadryl and when that did not work on discharge and given patient a shot of Haldol 5 mg IM. She should go home and sleep and hopefully this will take care of her headache. I explained to patient that narcotics lower the seizure threshold and also can have rebound headaches when you use narcotics I do not want to do that. Patient does have a neurologist she can follow-up with. - Vital Signs Vital signs: Temp Pulse Resp BP Pulse Ox 97.9 F 16 99 05/15/20 01:02 05/15/20 01:02 05/15/20 01:02 - Laboratory Result Diagrams: 05/14/20 21:20 05/14/20 21:20 Laboratory results interpreted by me: 05/14/20 05/14/20 21:20 21:20 RDW 14.1 H Lymph % (Auto) 55.1 H Seg Neutrophils % 36.8 L Potassium 3.4 L Chloride 111 H Calcium 7.6 L Total Protein 5.8 L Albumin 3.0 L Discharge - Discharge Clinical Impression: Seizure Headache Qualifiers: Headache type: unspecified Headache chronicity pattern: chronic headache Intractability: not intractable Qualified Code(s): R51 - Headache Condition: Stable Disposition: HOME, SELF-CARE Instructions: Headache ([facility]), Seizure, Known Epileptic ([facility]) Additional Instructions: As we discussed continue with your current dose of Keppra and contact your primary care doctor and/or your neurologist on Sunday for follow-up. The medication again you will make you sleepy so go home and go to sleep. Should you have any problems or concerns over the weekend return to ER for reevaluation. Prescriptions: Ondansetron [Zofran Odt 4 mg Tablet] 1 - 2 tab PO Q4H PRN #15 tab.rapdis PRN Reason: For Nausea/Vomiting Forms: Return to Work Referrals: [facility] [Provider Group] - Follow up as needed [facility] [Provider Group] - Follow up as needed
[2020-05-15] MEDS ORDERED: LEVETIRACETAM 500 MG TABLET PO ONE (00:55)
== END 2020-05-15 01:02 | disposition home or self-care (01) ==
LOC: ER 20:48
DX: G40.909 Epilepsy, unspecified, not intractable, without status epilepticus (principal); G43.909 Migraine, unspecified, not intractable, without status migrainosus; I10 Essential (primary) hypertension; Z79.899 Other long term (current) drug therapy; Z88.8 Allergy status to other drugs, medicaments and biological substances
CPT/HCPCS: 93005; 99284; 96372; 96361; 96374; 96375; 36415; 82962; 85025; 85610; 81025; 80053; 81001; 80307; 93010; J1200; J1630; J1885; J2405; J7030

== ENCOUNTER 2020-05-17 19:41 | Emergency (ER) | payer MEDICAID ==
[2020-05-17] MEDS ORDERED: PROMETHAZINE HCL 25 MG TABLET PO ONE (20:54)
--- NOTE | 2020-05-17 20:56 | ER Document Report ---
ED Medical Screen (RME) - General Chief Complaint: Headache Stated Complaint: HEADACHE,PASSED OUT Time Seen by Provider: 05/17/20 20:51 Information source: Patient Notes: Patient presents complaining of headache with seizures today. Patient states that she has had numerous seizures today that she attributes to black mold in her home. Patient states that she does have a history of seizures and has been compliant with taking her antiepileptic medication. Patient reports nausea. Patient denies any cough or cold symptoms. I have greeted and performed a rapid initial assessment of this patient. A comprehensive ED assessment and evaluation of the patient, analysis of test results and completion of the medical decision making process will be conducted by additional ED providers. TRAVEL OUTSIDE OF THE [place] IN LAST 30 DAYS: No - Related Data Allergies/Adverse Reactions: latex Allergy (Verified 10/13/19 19:53) topiramate [From Topamax] Allergy (Verified 10/13/19 19:53) Home Medications: flexeril, keppra, Past Medical History - Past Medical History Cardiac Medical History: Reports: Hx Hypertension Denies: Hx Coronary Artery Disease, Hx Heart Attack Pulmonary Medical History: Denies: Hx Asthma, Hx Bronchitis, Hx COPD, Hx Pneumonia Neurological Medical History: Reports: Hx Migraine, Hx Seizures - EPILEPSY, LAST ONE 3MONTHS AGO, seizures in sleep. Denies: Hx Cerebrovascular Accident Renal/ Medical History: Denies: Hx Peritoneal Dialysis Musculoskeltal Medical History: Denies Hx Arthritis Past Surgical History: Reports: Hx Gynecologic Surgery - partial hysterectomy, Hx Hysterectomy, Hx Tonsillectomy, Hx Tubal Ligation - Immunizations Immunizations up to date: Yes Hx Diphtheria, Pertussis, Tetanus Vaccination: Yes Physical Exam - Vital signs Vitals: Temp Pulse Resp BP Pulse Ox 99.5 F 95 20 126/104 H 99 05/17/20 19:51 05/17/20 19:51 05/17/20 19:51 05/17/20 19:51 05/17/20 19:51 - Neurological Neuro grossly intact: Yes Cognition: Normal [place] Coma Scale Eye Opening: Spontaneous Donte Coma Scale Verbal: Oriented Donte Coma Scale Motor: Obeys Commands Donte Coma Scale Total: 15 Speech: Normal Course - Vital Signs Vital signs: Temp Pulse Resp BP Pulse Ox 99.5 F 95 20 126/104 H 99 05/17/20 19:51 05/17/20 19:51 05/17/20 19:51 05/17/20 19:51 05/17/20 19:51
[2020-05-17 22:29] LABS: ABSOLUTE BASOPHILS # (AUTO) 0.1 10^3/uL (0.0-0.2); ABSOLUTE EOSINOPHILS # (AUTO) 0.1 10^3/uL (0.0-0.6); ABSOLUTE MONOCYTES (AUTO) 0.4 10^3/uL (0.1-1.4); ABSOLUTE NEUT (AUTO) 2.6 10^3/uL (1.7-8.2); BASOPHILS % (AUTO) 1.3 % (0-2); EOSINOPHILS % (AUTO) 1.9 % (0-6); MEAN CORPUSCULAR HEMOGLOBIN 31.9 pg (27.0-33.4); MONOCYTES % (AUTO) 6.2 % (3-13); TOTAL CELLS COUNTED % (AUTO) 100 %
[2020-05-17 22:33] LABS: ABSOLUTE LYMPHOCYTES (AUTO) 3.4 10^3/uL (0.5-4.7); HEMATOCRIT 42.9 % (36.0-47.0); LYMPHOCYTES % (AUTO) 51.6 % (13-45); MEAN CORPUSCULAR HGB CONC 34.9 g/dL (32.0-36.0); MEAN CORPUSCULAR VOLUME 91 fl (80-97); RED CELL DISTRIBUTION WIDTH 13.8 % (11.5-14.0); WHITE BLOOD COUNT 6.6 10^3/uL (4.0-10.5)
[2020-05-17 22:43] LABS: APPEARANCE,URINE SLIGHTLY-CLOUDY; BILIRUBIN,URINE NEGATIVE (NEGATIVE); COLOR,URINE YELLOW; GLUCOSE, URINE NEGATIVE (NEGATIVE); KETONES,URINE NEGATIVE (NEGATIVE); LEUKOCYTE ESTERASE,URINE NEGATIVE (NEGATIVE); NITRITE,URINE NEGATIVE (NEGATIVE); PROTEIN,URINE NEGATIVE (NEGATIVE); URINE SPECIFIC GRAVITY 1.024; UROBILINOGEN,URINE NEGATIVE mg/dL (<2.0)
[2020-05-17 22:48] LABS: PLATELET COUNT 272 10^3/uL (150-450)
[2020-05-17 22:51] LABS: URINE AMPHETAMINES SCREEN NEGATIVE; URINE BARBITURATES SCREEN UNCONFIRMED POSITIVE; URINE BENZODIAZEPINES SCREEN NEGATIVE; URINE COCAINE SCREEN NEGATIVE; URINE MARIJUANA (THC) SCREEN NEGATIVE; URINE METHADONE SCREEN NEGATIVE; URINE PHENCYCLIDINE SCREEN NEGATIVE
[2020-05-17 22:52] LABS: ALBUMIN 4.6 g/dL (3.5-5.0); ALKALINE PHOSPHATASE 72 U/L (38-126); ANION GAP 9 (5-19); ASPARTATE AMINO TRANSFERASE 23 U/L (14-36); BILIRUBIN,DIRECT 0.4 mg/dL (0.0-0.4); BILIRUBIN,TOTAL 0.4 mg/dL (0.2-1.3); BLOOD UREA NITROGEN 14 mg/dL (7-20); CALCIUM 9.4 mg/dL (8.4-10.2); CARBON DIOXIDE 27 mmol/L (22-30); CHLORIDE 103 mmol/L (98-107); CREATINE KINASE 175 U/L (30-135); GLUCOSE 90 mg/dL (75-110); POTASSIUM 3.9 mmol/L (3.6-5.0); TOTAL PROTEIN 8.2 g/dL (6.3-8.2)
[2020-05-18] MEDS ORDERED: PROMETHAZINE HCL 25 MG TABLET PO ONE (02:30)
[2020-05-18] MEDS ORDERED: OXYCODONE-ACETAMINOPHEN 5-325 MG TABLET PO ONE (03:39)
--- NOTE | 2020-05-18 03:46 | ER Document Report ---
ED General - General Chief Complaint: Headache Stated Complaint: HEADACHE,PASSED OUT Time Seen by Provider: 05/17/20 20:51 TRAVEL OUTSIDE OF THE [place] IN LAST 30 DAYS: No - HPI Notes: Patient is a 35-year-old female with a known history of seizure disorder who presents to the ER for evaluation of seizures. She states she believes she may have had a few seizures today. Some were witnessed by her . She states she has a near syncopal episode with some. Afterward she is confused. She does not bite her tongue. She has had no episodes of incontinence. She states she has a headache. This is typical of the headaches she gets after seizure activity. - Related Data Allergies/Adverse Reactions: latex Allergy (Verified 10/13/19 19:53) topiramate [From Topamax] Allergy (Verified 10/13/19 19:53) Home Medications: flexeril, keppra, Past Medical History - General Information source: Patient - Social History Smoking Status: Current Every Day Smoker Family History: Reviewed & Not Pertinent, Hypertension - Past Medical History Cardiac Medical History: Reports: Hx Hypertension Denies: Hx Coronary Artery Disease, Hx Heart Attack Pulmonary Medical History: Denies: Hx Asthma, Hx Bronchitis, Hx COPD, Hx Pneumonia Neurological Medical History: Reports: Hx Migraine, Hx Seizures - EPILEPSY, LAST ONE 3MONTHS AGO, seizures in sleep. Denies: Hx Cerebrovascular Accident Renal/ Medical History: Denies: Hx Peritoneal Dialysis Musculoskeletal Medical History: Denies Hx Arthritis Past Surgical History: Reports: Hx Gynecologic Surgery - partial hysterectomy, Hx Hysterectomy, Hx Tonsillectomy, Hx Tubal Ligation - Immunizations Immunizations up to date: Yes Hx Diphtheria, Pertussis, Tetanus Vaccination: Yes Review of Systems - Review of Systems Constitutional: No symptoms reported EENT: No symptoms reported Cardiovascular: No symptoms reported Respiratory: No symptoms reported Gastrointestinal: No symptoms reported Genitourinary: No symptoms reported Musculoskeletal: No symptoms reported Skin: No symptoms reported Neurological/Psychological: See HPI Physical Exam - Vital signs Vitals: Temp Pulse Resp BP Pulse Ox 99.5 F 95 20 126/104 H 99 05/17/20 19:51 05/17/20 19:51 05/17/20 19:51 05/17/20 19:51 05/17/20 19:51 - Notes Notes: Vital signs reviewed, please refer to chart. Head is normocephalic, atraumatic. Pupils equal round, reactive to light. Neck is supple without meningismus. Heart is regular rate and rhythm. Lungs are clear to auscultation bilaterally. Abdomen is soft, nontender, normoactive bowel sounds throughout. Extremities without cyanosis, clubbing. Posterior calves are nontender. Peripheral pulses are equal. Skin is warm and dry. Patient is awake, alert, oriented x3. Cranial nerves II - XII are grossly intact without focal neurological deficits. Strength is plus 5 out of 5 bilateral upper and lower extremities. Sensation is intact. Reflexes symmetrical. Intact [id number], rapid alternating movements, [id number]. Course - Re-evaluation Re-evalutation: 05/18/20 03:49 Patient presents to the emergency department for evaluation. She states she is had multiple seizures. She was here for 8 hours, had no seizures while here. She remained stable. She states she has been taking her medications as prescribed. No recent changes in her medication dosages. She does continue to still have a headache. She was given Percocet for that here. She is to follow- up with her neurologist. She understands that if she has any further seizure activity she needs to report immediately to the ER for further evaluation. - Vital Signs Vital signs: Temp Pulse Resp BP Pulse Ox 99.0 F 80 20 122/77 100 05/17/20 22:59 05/17/20 22:59 05/17/20 19:51 05/17/20 22:59 05/17/20 22:59 - Laboratory Result Diagrams: 05/17/20 22:19 05/17/20 22:19 Laboratory results interpreted by me: 05/17/20 05/17/20 22:19 22:19 Lymph % (Auto) 51.6 H Seg Neutrophils % 39.0 L Creatine Kinase 175 H Discharge - Discharge Clinical Impression: Seizure Headache Qualifiers: Headache chronicity pattern: acute headache Intractability: not intractable Condition: Stable Disposition: HOME, SELF-CARE Instructions: Headache ([facility]), Seizure, Known Epileptic ([facility]) Additional Instructions: Please continue to take your regular Keppra dose as prescribed. Follow-up with your neurologist this week. If you have further seizure activity, or you develop new or concerning symptoms of any sort, please return immediately to the emergency department for reevaluation.
[2020-05-18 04:06] VITALS: BP 130/93
--- NOTE | 2020-05-18 06:26 | EKG REPORT ---
SEVERITY:- NORMAL ECG - SINUS RHYTHM : Confirmed by: Ras Moser MD 18-May-2020 06:25:24
== END 2020-05-18 04:06 | disposition home or self-care (01) ==
LOC: ER 19:41
DX: G40.909 Epilepsy, unspecified, not intractable, without status epilepticus (principal); R51 Headache; F17.200 Nicotine dependence, unspecified, uncomplicated; I10 Essential (primary) hypertension; Z79.899 Other long term (current) drug therapy
CPT/HCPCS: 93005; 99284; 36415; 82550; 84703; 85025; 80053; 81001; 80307; 93010; J3490

== ENCOUNTER 2020-05-18 13:20 | Emergency (ER) | payer MEDICAID ==
--- NOTE | 2020-05-18 13:48 | ER Document Report ---
ED Medical Screen (RME) - General Chief Complaint: Passed Out Prior to Arrival Stated Complaint: SYNCOPE Time Seen by Provider: 05/18/20 13:31 TRAVEL OUTSIDE OF THE [place] IN LAST 30 DAYS: No - HPI Notes: 05/18/20 13:43 35-year-old female with a history of headaches and migraines with epilepsy and 1 g Keppra daily presents to the emergency room for complaints of having seizures every 3 hours for the last couple of days when she typically only has a seizure once every 4 to 6 months. Patient states she was seen in the emergency room last night to be evaluated.Per providers note, she did not have a seizure in the 8 hours that she was in the emergency room, but was told if she has continuing seizures to return to the emergency room. Patient states that she was on the phone with the nurse for her neurologist office this morning, states that she "blacked out" and states when she came to her mother stated that she was coming to the emergency room for evaluation. Denies any new medications foods or travel. Patient last filled her last Keppra in January 2020 for 3 months, states she does have a prescription that needs to be picked up. She does state that she is taking it daily, so some confusion as to when she is taking her Keppra. patient denies any incontinence or any biting of her tongue associated with her seizures. Patient states she did take her Keppra this morning. Patient states that her neurologist is Dr. Emily Strong. Denies any head trauma or change in her life that would cause a potential for massive increase from having 1 seizure every 4 to 6 months to having 1 seizure every 3 hours and having increased fainting spells. Denies any fevers chills, chest pain, shortness of breath, nausea vomiting diarrhea, abdominal pain, rashes I have greeted and performed a rapid initial assessment of this patient. A comprehensive ED assessment and evaluation of the patient, analysis of test results and completion of the medical decision making process will be conducted by additional ED providers. PHYSICAL EXAMINATION: GENERAL: Well-appearing, well-nourished and in no acute distress. HEAD: Atraumatic, normocephalic. EYES: Pupils equal round extraocular movements intact, conjunctiva are normal. NECK: Normal range of motion CV: s1, s2 regular LUNGS: No respiratory distress Musculoskeletal: Normal range of motion NEUROLOGICAL: Normal speech, normal gait. SKIN: Warm, Dry, normal turgor, no rashes or lesions noted. - Related Data Allergies/Adverse Reactions: latex Allergy (Verified 05/18/20 13:31) topiramate [From Topamax] Allergy (Verified 05/18/20 13:31) Past Medical History - Social History Frequency of alcohol use: None Drug Abuse: None - Past Medical History Cardiac Medical History: Reports: Hx Hypertension Denies: Hx Coronary Artery Disease, Hx Heart Attack Pulmonary Medical History: Denies: Hx Asthma, Hx Bronchitis, Hx COPD, Hx Pneumonia Neurological Medical History: Reports: Hx Migraine, Hx Seizures - EPILEPSY, LAST ONE 3MONTHS AGO, seizures in sleep. Denies: Hx Cerebrovascular Accident Renal/ Medical History: Denies: Hx Peritoneal Dialysis Musculoskeltal Medical History: Denies Hx Arthritis Past Surgical History: Reports: Hx Gynecologic Surgery - partial hysterectomy, Hx Hysterectomy, Hx Tonsillectomy, Hx Tubal Ligation - Immunizations Immunizations up to date: Yes Hx Diphtheria, Pertussis, Tetanus Vaccination: Yes Physical Exam - Vital signs Vitals: Temp 98.7 F 05/18/20 13:32 Course - Vital Signs Vital signs: Temp Pulse Resp BP Pulse Ox 98.7 F 05/18/20 13:32
[2020-05-18 14:23] LABS: ABSOLUTE EOSINOPHILS # (AUTO) 0.1 10^3/uL (0.0-0.6); ABSOLUTE LYMPHOCYTES (AUTO) 2.2 10^3/uL (0.5-4.7); ABSOLUTE MONOCYTES (AUTO) 0.3 10^3/uL (0.1-1.4); ABSOLUTE NEUT (AUTO) 1.6 10^3/uL (1.7-8.2); BASOPHILS % (AUTO) 0.8 % (0-2); EOSINOPHILS % (AUTO) 1.9 % (0-6); HEMATOCRIT 43.3 % (36.0-47.0); HEMOGLOBIN 15.1 g/dL (12.0-15.5); LYMPHOCYTES % (AUTO) 51.9 % (13-45); MEAN CORPUSCULAR HEMOGLOBIN 31.7 pg (27.0-33.4); MEAN CORPUSCULAR HGB CONC 34.9 g/dL (32.0-36.0); MEAN CORPUSCULAR VOLUME 91 fl (80-97); PLATELET COUNT 262 10^3/uL (150-450); RED BLOOD COUNT 4.77 10^6/uL (3.72-5.28); SEGMENTED NEUTROPHILS % (AUTO) 38.4 % (42-78); TOTAL CELLS COUNTED % (AUTO) 100 %; WHITE BLOOD COUNT 4.2 10^3/uL (4.0-10.5)
[2020-05-18 14:26] LABS: APPEARANCE,URINE CLEAR; BILIRUBIN,URINE NEGATIVE (NEGATIVE); COLOR,URINE STRAW; GLUCOSE, URINE NEGATIVE (NEGATIVE); KETONES,URINE NEGATIVE (NEGATIVE); LEUKOCYTE ESTERASE,URINE NEGATIVE (NEGATIVE); NITRITE,URINE NEGATIVE (NEGATIVE); PROTEIN,URINE NEGATIVE (NEGATIVE); URINE SPECIFIC GRAVITY 1.009; UROBILINOGEN,URINE NEGATIVE mg/dL (<2.0)
[2020-05-18 14:39] LABS: ALBUMIN 4.5 g/dL (3.5-5.0); ALKALINE PHOSPHATASE 69 U/L (38-126); ANION GAP 7 (5-19); ASPARTATE AMINO TRANSFERASE 20 U/L (14-36); BILIRUBIN,DIRECT 0.2 mg/dL (0.0-0.4); BILIRUBIN,TOTAL 0.4 mg/dL (0.2-1.3); BLOOD UREA NITROGEN 12 mg/dL (7-20); CALCIUM 9.3 mg/dL (8.4-10.2); CARBON DIOXIDE 27 mmol/L (22-30); CHLORIDE 103 mmol/L (98-107); CREATINE KINASE 125 U/L (30-135); GLUCOSE 90 mg/dL (75-110); TOTAL PROTEIN 7.9 g/dL (6.3-8.2)
[2020-05-18 14:40] LABS: URINE AMPHETAMINES SCREEN NEGATIVE; URINE BENZODIAZEPINES SCREEN NEGATIVE; URINE COCAINE SCREEN NEGATIVE; URINE MARIJUANA (THC) SCREEN NEGATIVE; URINE METHADONE SCREEN NEGATIVE; URINE PHENCYCLIDINE SCREEN NEGATIVE
[2020-05-18 14:43] LABS: ALCOHOL < 10 mg/dL (NONE DETECTED); URINE BARBITURATES SCREEN UNCONFIRMED POSITIVE
--- NOTE | 2020-05-18 16:12 | RADIOLOGY REPORT (SQ) ---
EXAM DESCRIPTION: CT HEAD WITHOUT IMAGES COMPLETED DATE/TIME: 05/18/2020 4:01 pm REASON FOR STUDY: Seizures every 3 hours, syncope, [id number] COMPARISON: 10/10/2019. TECHNIQUE: Axial images acquired through the brain without intravenous contrast. Images reviewed wi th bone, brain and subdural windows. Additional sagittal and coronal reconstructions were generated. Images stored on PACS. All CT scanners at this facility use dose modulation, iterative reconstruction, and/or weight based d osing when appropriate to reduce radiation dose to as low as reasonably achievable (ALARA). [facility]: Dose Right [facility]: CareDose [facility]: Dose Right [facility]: Teradose 4D [facility]: CamSemi RADIATION DOSE: CT Rad equipment meets quality standard of care and radiation dose reduction techniq ues were employed. CTDIvol: 53.2 mGy. DLP: 964 mGy-cm. mGy. LIMITATIONS: None. FINDINGS: VENTRICLES: Normal size and contour. CEREBRUM: No masses. No hemorrhage. No midline shift. No evidence for acute infarction. Normal gra y/white matter differentiation. No areas of low density in the white matter. CEREBELLUM: No masses. No hemorrhage. No alteration of density. No evidence for acute infarction. EXTRAAXIAL SPACES: No fluid collections. No masses. ORBITS AND GLOBE: No intra- or extraconal masses. Normal contour of globe without masses. CALVARIUM: No fracture. PARANASAL SINUSES: No fluid or mucosal thickening. SOFT TISSUES: No mass or hematoma. OTHER: No other significant finding. IMPRESSION: NORMAL BRAIN CT WITHOUT CONTRAST. EVIDENCE OF ACUTE STROKE: NO. COMMENT: Quality ID # [id number]: Final reports with documentation of one or more dose reduction techniques (e.g., Automated exposure control, adjustment of the mA and/or kV according to patient size, use of iterative reconstruction technique) TECHNICAL DOCUMENTATION: JOB ID: [id number] 2010 [employer]- All Rights Reserved Reading location - IP/workstation name: [email or web address]
[2020-05-18] MEDS ORDERED: ACETAMINOPHEN 325 MG TABLET PO ONE ×2 (18:25→23:19)
[2020-05-18] MEDS ORDERED: ONDANSETRON 4 MG TAB.RAPDIS PO ONE (18:25)
--- NOTE | 2020-05-18 18:26 | EKG REPORT ---
SEVERITY:- NORMAL ECG - SINUS RHYTHM : Confirmed by: Ras Moser MD 18-May-2020 18:25:05
--- NOTE | 2020-05-18 21:48 | ER Document Report ---
ED General <LEO GRAY - Last Filed: 05/19/20 01:11> - General Mode of Arrival: Ambulatory Information source: Patient, Relative, [facility] Records TRAVEL OUTSIDE OF THE [place] IN LAST 30 DAYS: No - HPI Onset: Just prior to arrival Onset/Duration: Sudden, Intermittent Quality of pain: Achy Severity: Mild Pain Level: 1 Associated symptoms: Body/muscle aches Exacerbated by: Denies Relieved by: Denies Similar symptoms previously: Yes Recently seen / treated by doctor: Yes <BABATUNDE MUHAMMAD - Last Filed: 05/19/20 13:11> - General Chief Complaint: Passed Out Prior to Arrival Stated Complaint: SYNCOPE Time Seen by Provider: 05/18/20 13:31 Notes: 35-year-old female with a history of headaches and migraines with epilepsy and 1 g Keppra daily presents to the emergency room for complaints of having seizures every 3 hours for the last couple of days when she typically only has a seizure once every 4 to 6 months. Patient states she was seen in the emergency room last night to be evaluated.Per providers note, she did not have a seizure in the 8 hours that she was in the emergency room, but was told if she has continuing seizures to return to the emergency room. Patient states that she was on the phone with the nurse for her neurologist office this morning, states that she "blacked out" and states when she came to her mother stated that she was coming to the emergency room for evaluation. Denies any new medications foods or travel. Patient last filled her last Keppra in January 2020 for 3 months, states she does have a prescription that needs to be picked up. She does state that she is taking it daily, so some confusion as to when she is taking her Keppra. patient denies any incontinence or any biting of her tongue associated with her seizures. Patient states she did take her Keppra this morning. Patient states that her neurologist is Dr. Emily Strong. At time of my evaluation patient was awake alert and in no acute distress. Patient's review of systems and HPI are similar to as stated above. (BABATUNDE MUHAMMAD) - Related Data Allergies/Adverse Reactions: latex Allergy (Verified 05/18/20 13:31) topiramate [From Topamax] Allergy (Verified 05/18/20 13:31) Past Medical History - General Information source: Patient, [facility] Records - Social History Smoking Status: Current Every Day Smoker Cigarette use (# per day): Yes Chew tobacco use (# tins/day): No Smoking Education Provided: Yes Frequency of alcohol use: None Drug Abuse: None Lives with: Family Family History: Reviewed & Not Pertinent, Hypertension Patient has suicidal ideation: No Patient has homicidal ideation: No - Past Medical History Cardiac Medical History: Reports: Hx Hypertension Denies: Hx Coronary Artery Disease, Hx Heart Attack Pulmonary Medical History: Denies: Hx Asthma, Hx Bronchitis, Hx COPD, Hx Pneumonia Neurological Medical History: Reports: Hx Migraine, Hx Seizures - EPILEPSY, LAST ONE 3MONTHS AGO, seizures in sleep. Denies: Hx Cerebrovascular Accident Renal/ Medical History: Denies: Hx Peritoneal Dialysis Musculoskeletal Medical History: Denies Hx Arthritis Past Surgical History: Reports: Hx Gynecologic Surgery - partial hysterectomy, Hx Hysterectomy, Hx Tonsillectomy, Hx Tubal Ligation - Immunizations Immunizations up to date: Yes Hx Diphtheria, Pertussis, Tetanus Vaccination: Yes <BABATUNDE MUHAMMAD - Last Filed: 05/19/20 13:11> Review of Systems - Review of Systems Constitutional: No symptoms reported EENT: No symptoms reported Cardiovascular: No symptoms reported Respiratory: No symptoms reported Gastrointestinal: No symptoms reported Genitourinary: No symptoms reported Female Genitourinary: No symptoms reported Musculoskeletal: No symptoms reported Skin: No symptoms reported Hematologic/Lymphatic: No symptoms reported Neurological/Psychological: See HPI -: Yes All other systems reviewed and negative <BABATUNDE MUHAMMAD - Last Filed: 05/19/20 13:11> Physical Exam <BABATUNDE MUHAMMAD - Last Filed: 05/19/20 13:11> - Vital signs Vitals: Temp 98.7 F 05/18/20 13:32 - Notes Notes: PHYSICAL EXAMINATION: GENERAL: Patient is a 35-year-old female presenting to the emergency department chief complaint of multiple seizures and syncopal episode HEAD: Atraumatic, normocephalic. EYES: Pupils equal round and reactive to light, extraocular movements intact, sclera anicteric, conjunctiva are normal. ENT: nares patent, oropharynx clear without exudates. Moist mucous membranes. There is no sign of lingular trauma NECK: Normal range of motion, supple without lymphadenopathy, no appreciable JVD LUNGS: Lungs clear to auscultation bilaterally and equal. No wheezes rales or rhonchi. HEART: Regular rate and rhythm without murmurs ABDOMEN: Soft, nontender, normal bowel sounds. No guarding, no rebound. No masses appreciated. EXTREMITIES: Active full range of motion, no pitting or edema. No cyanosis. 2+ pulses x4 NEUROLOGICAL: At time of evaluation the patient is alert and oriented x3, Glascow coma scale of 15, cranial nerves II through XII are grossly intact, sensations intact, motor is intact, there are no signs of nystagmus, there is no pronator drift, there is no facial asymmetry, tongue protrusion is midline, reflexes are equal and bilateral, patient ambulates without ataxia, patient answers all questions appropriately follows commands appropriately. SKIN: Warm, Dry, and intact. Normal turgor, no rashes or lesions noted. (BABATUNDE ARREOLA) Course - Laboratory Result Diagrams: 05/18/20 14:10 05/18/20 14:10 <LEO GRAY - Last Filed: 05/19/20 01:11> - Laboratory Result Diagrams: 05/18/20 14:10 05/18/20 14:10 - Diagnostic Test Radiology reviewed: Reports reviewed <BABATUNDE MUHAMMAD - Last Filed: 05/19/20 13:11> - Re-evaluation Re-evalutation: 05/19/20 01:11 Care of this patient was turned over to me awaiting transfer. The patient remained stable, no further seizure activity. I went in and evaluated the patient when she was being loaded up for transport. She has no complaints or concerns, she is stable for transport. (LEO GRAY) 05/18/20 21:43 Patient has been maintained on a school lunch monitor while in emergency department the patient has remained stable without signs of decompensation. I have talked to the patient and family member at great length and regards to her complaint of repetitive seizures. Patient was requesting medication for headache patient was recommended to take acetaminophen for headache and Zofran for nausea. Nursing staff informed me that the patient was upset about acetaminophen for pain. At approximately 7 PM the patient was reported to have had a seizure per family member. When I went into the room the patient was postictal and not responding to a sternal rub. At that time I did initiate request for transfer. We have made several attempts for transfer initially we did call to [facility] which is where the patient's neurologist resides however they are on diversion except for STEMI and stroke we receive the same input from [facility]. Because of the patient's repetitive seizures we have reached out to [facility] and spoke with Dr Boston Parmar Neurology who recommended IV Keppra 3 g. He also stated if the patient seized again that she would benefit from 2 mg of Ativan IV. After speaking with the neurology ICU attending Dr. Jazzmine Flores patient has been accepted to their service. Currently EMS is in route to transport the patient. The last time I reevaluated the patient she was still quite somnolent minimally responsive to questions. (BABATUNDE MUHAMMAD) - Vital Signs Vital signs: Temp Pulse Resp BP Pulse Ox 99.8 F 88 38 H 116/66 99 05/18/20 19:52 05/18/20 19:52 05/18/20 22:01 05/18/20 22:00 05/18/20 19:52 - Laboratory Laboratory results interpreted by me: 05/18/20 05/18/20 05/18/20 14:10 14:10 14:10 Lymph % (Auto) 51.9 H Absolute Neuts (auto) 1.6 L Seg Neutrophils % 38.4 L Sodium 136.8 L Magnesium 2.4 H Prolactin 26.3 H Critical Care Note - Critical Care Note Total time excluding time spent on procedures (mins): 40 <BABATUNDE MUHAMMAD - Last Filed: 05/19/20 13:11> - Critical Care Note Comments: Please allow 40 minutes of critical care time spent obtaining history from patient or surrogate, discussions with consultants, development of treatment plan with patient or surrogate, evaluation of patient's response to treatment, examination of patient. This also includes ordering and reviewing laboratory, EKG and / or radiologic studies, performing and reassessing treatments and interventions as well as reviewing previous visits and old charts. This is exclusive of separately billable procedures. (BABATUNDE MUHAMMAD) Discharge <LEO GRAY - Last Filed: 05/19/20 01:11> <BABATUNDE MUHAMMAD - Last Filed: 05/19/20 13:11> - Discharge Clinical Impression: Seizure, Acute repetitive seizure Headache Qualifiers: Headache type: unspecified Headache chronicity pattern: acute headache Intractability: not intractable Qualified Code(s): R51 - Headache Syncope Qualifiers: Syncope type: unspecified Qualified Code(s): R55 - Syncope and collapse Condition: Fair Disposition: Tertiary-Other
[2020-05-18] MEDS ORDERED: LEVETIRACETAM 3,000 MG in NORMAL SALINE 100 ML IV SCH (22:00)
[2020-05-18] MEDS ORDERED: NORMAL SALINE IV ONE (22:00)
[2020-05-18] MEDS ORDERED: LEVETIRACETAM IV ONE ×2 (22:00→22:46)
[2020-05-18] MEDS ORDERED: SODIUM CHLORIDE IV ONE (22:46)
[2020-05-18] MEDS ORDERED: [UNRECOGNIZED DRUG - OTHER] IV ONE (22:46)
[2020-05-18 23:00] VITALS: BP 116/66
== END 2020-05-19 01:05 | disposition short-term general hospital (02) ==
LOC: ER 13:20
DX: G40.909 Epilepsy, unspecified, not intractable, without status epilepticus (principal); R51 Headache; R55 Syncope and collapse; F17.210 Nicotine dependence, cigarettes, uncomplicated; I10 Essential (primary) hypertension; Z79.899 Other long term (current) drug therapy; Z91.040 Latex allergy status; Z88.6 Allergy status to analgesic agent; Z20.828 Contact with and (suspected) exposure to other viral communicable diseases
CPT/HCPCS: 99291; 96365; 36415; 80177; 80307 ×2; 82550; 83735; 85025; 87635; 81025; 80053; 81001; 84146; 70450; 93005; 93010; J3490; J7050; J1953; C9803

== ENCOUNTER 2020-09-22 14:57 | Emergency (ER) | payer MEDICAID ==
[2020-09-22 15:30] VITALS: BP 136/76
[2020-09-22] MEDS ORDERED: KETOROLAC TROMETHAMINE 60 MG/2 ML SDV IM ONE (17:59)
[2020-09-22] MEDS ORDERED: DIPHENHYDRAMINE HCL 25 MG CAPSULE PO ONE (18:01)
[2020-09-22] MEDS ORDERED: METOCLOPRAMIDE HCL INJ/PF 10 MG/2 ML SDV IM ONE (18:01)
--- NOTE | 2020-09-22 18:41 | ER Document Report ---
HPI - HPI Patient complains to provider of: Headache Time Seen by Provider: 09/22/20 17:54 Pain Level: 5 Context: 35-year-old female presents to the emergency room complaining of a headache that started earlier today. Patient states around 3 PM she felt a "twinge" to the back of the head. Patient states this is how her migraines normally start. States she took 2 Fioricet laydown woke up an hour and 45 minutes later with the same headache. Complains of nausea but no vomiting no head trauma head injury. Denies worst headache of her life. No sudden thunderclap. States it is similar to her previous migraines. Associated Symptoms: None Exacerbated by: Denies Relieved by: Denies Similar symptoms previously: Yes - History of migraines Recently seen / treated by doctor: No - ROS Systems Reviewed and Negative: Yes All other systems reviewed and negative - CONSTITUTIONAL Constitutional: DENIES: Fever, Chills - NEURO Neurology: REPORTS: Headache. DENIES: Weakness, Vision blurred, Dizzinesss / Vertigo - REPRODUCTIVE Reproductive: DENIES: : - DERM Skin Color: Normal Skin Problems: None Past Medical History - General Information source: Patient - Social History Smoking Status: Current Every Day Smoker Frequency of alcohol use: Occasional Drug Abuse: None Family History: Hypertension, Other - Migraines Patient has homicidal ideation: No - Past Medical History Cardiac Medical History: Reports: Hx Hypertension Denies: Hx Coronary Artery Disease, Hx Heart Attack Pulmonary Medical History: Denies: Hx Asthma, Hx Bronchitis, Hx COPD, Hx Pneumonia Neurological Medical History: Reports: Hx Migraine, Hx Seizures - EPILEPSY, LAST ONE 3MONTHS AGO, seizures in sleep. Denies: Hx Cerebrovascular Accident Renal/ Medical History: Denies: Hx Peritoneal Dialysis Musculoskeletal Medical History: Denies Hx Arthritis Past Surgical History: Reports: Hx Gynecologic Surgery - partial hysterectomy, Hx Hysterectomy, Hx Tonsillectomy, Hx Tubal Ligation - Immunizations Immunizations up to date: Yes Hx Diphtheria, Pertussis, Tetanus Vaccination: Yes Vertical Provider Document - CONSTITUTIONAL Agree With Documented VS: Yes Exam Limitations: No Limitations General Appearance: Mild Distress - INFECTION CONTROL TRAVEL OUTSIDE OF THE [place] IN LAST 30 DAYS: No - HEENT HEENT: Atraumatic, Normal ENT Exam, Normocephalic, PERRLA - NECK Neck: Normal Inspection, Supple, Thyroid Normal - RESPIRATORY Respiratory: Breath Sounds Normal, No Respiratory Distress, Chest Non-Tender - CARDIOVASCULAR Cardiovascular: Regular Rate, Regular Rhythm, No Murmur - MUSCULOSKELETAL/EXTREMETIES Musculoskeletal/Extremeties: FROM - NEURO Level of Consciousness: Awake, Alert, Appropriate Motor/Sensory: No Motor Deficit, No Sensory Deficit Notes: Ambulatory with a steady gait. Neurovascularly intact. - DERM Integumentary: Warm, Dry, No Rash Course - Re-evaluation Re-evalutation: 09/22/20 18:39 Patient is resting comfortably states her headache has resolved. Counseled to continue with her home migraine medicine. Follow-up with her primary care physician as needed. Patient was given strict return to the emergency room guidelines. Return for any new or worsening symptoms. All questions were answered. Patient verbalized understanding and agrees with plan of care. - Vital Signs Vital signs: Temp Pulse Resp BP Pulse Ox 98.7 F 91 16 136/76 H 100 09/22/20 15:17 09/22/20 15:17 09/22/20 15:17 09/22/20 15:17 09/22/20 15:17 - Laboratory Results Critical Laboratory Results Reviewed: No Critical Results - Radiology Results Critical Radiology Results Reviewed: No Critical Results Discharge - Discharge Clinical Impression: Migraine headache with aura Qualifiers: Status migrainosus presence: without status migrainosus Intractability: not intractable Qualified Code(s): G43.109 - Migraine with aura, not intractable, without status migrainosus Condition: Stable Disposition: HOME, SELF-CARE Instructions: Migraine Headache ([facility]) Additional Instructions: You have been seen in the Emergency Department (ED) for a headache. Please continue with your migraine medicine as directed. As we have discussed, please follow up with your primary care doctor as soon as possible regarding today's ED visit and your headache symptoms. Call your doctor or return to the ED if you have a worsening headache, sudden and severe headache, confusion, slurred speech, facial droop, weakness or numbness in any arm or leg, extreme fatigue, or other symptoms that concern you. Referrals: NICKY PATEL NP [Primary Care Provider] - Follow up as needed
== END 2020-09-22 18:49 | disposition home or self-care (01) ==
LOC: ER 14:57
DX: G43.109 Migraine with aura, not intractable, without status migrainosus (principal); R11.0 Nausea; I10 Essential (primary) hypertension; F17.200 Nicotine dependence, unspecified, uncomplicated
CPT/HCPCS: 99284; 96372; J3490; J1885; J2765